=== PATIENT | male | born 1960 | race Two or more races ===

== ENCOUNTER 2016-05-01 18:43 | Emergency (ER) | payer MEDICAID, OTHER ==
[2016-05-01 19:05] VITALS: BP 133/81
--- NOTE | 2016-05-01 20:00 | EDM.PDOC ---
ED HISTORY OF PRESENT ILLNESS - General Chief Complaint: Respiratory Problem Stated Complaint: VOMITING COUGH CHILLS Time Seen by Provider: 05/01/16 19:35 Source of Information: Reports: Patient History Limitations: Reports: No limitations - History of Present Illness INITIAL COMMENTS - FREE TEXT/NARRATIVE: Patient is a 56-year-old male who presents to the ED complaining of generalized body aches, nonproductive cough, watery eyes, itchy eyes, body chills, tactile fevers, sinus congestion, cough-induced emesis, mild sore throat, poor appetite , general malaise, and intermittent mild headache. States symptoms started approximately 4 days ago and have just minimally changed. He states he's been pushing fluids since onset of symptoms. Has been sleeping more than usual. Denies any documented fever. Denies any chest pain, shortness of breath, nausea , stiff neck, pre-/syncopal episodes, dizziness, abdominal pain, pain with urination, persistent diarrhea, rash, or any additional complaints. Timing/Duration: Reports: Constant, Improving (minimal) Severity: mild Location, General: Reports: generalized Quality: Reports: Ache Improves with: Reports: None Worsens with: Reports: None Context, General: Denies: Sick contact Associated Symptoms (General): Reports: cough, fever/chills (No documented fever ), loss of appetite, malaise, nausea/vomiting (Cough induced vomiting). Denies : chest pain, cough w sputum, rash, shortness of breath, syncope, weakness Treatments DIE BAKER: Reports: Other (see below) (None stated) - Related Data Allergies/ADRs: Allergies Allergy/AdvReac Type Severity Reaction Status Date / Time No Known Allergies Allergy Verified 07/17/14 20:50 Home Meds: Home Meds Aspirin [Ecotrin] 81 mg PO DAILY 07/17/13 [History] Losartan [Cozaar] 50 mg PO DAILY 07/17/13 [History] Tamsulosin [Flomax] 0.4 mg PO DAILY 10/16/15 [History] Past Medical History HEENT History: Reports: Impaired vision Other HEENT History: Glasses Cardiovascular History: Reports: Hypertension Genitourinary History: Reports: BPH - Past Surgical History GI Surgical History: Reports: Appendectomy Musculoskeletal Surgical History: Reports: Arthroscopic knee, Carpal tunnel Social & Family History - Family History Family Medical History: Noncontributory - Tobacco Use Smoking Status *Q: Never Smoker Second Hand Smoke Exposure: No - Caffeine Use Caffeine Use: Reports: Coffee - Alcohol Use Days Per Week of Alcohol Use: 0 - Recreational Drug Use Recreational Drug Use: No - Living Situation & Occupation Living situation: Reports: , other (Friends) 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 Denies: shortness of breath, sputum Cardiovascular: Reports: No symptoms GI/Abdominal: Reports: Vomiting. Denies: Nausea Musculoskeletal: Reports: muscle stiffness (General) Skin: Reports: no symptoms Neurological: Reports: no symptoms ED EXAM, GENERAL - Physical Exam Exam: See Below Exam Limited By: No limitations General Appearance: alert, WD/WN, no apparent distress Eye Exam: bilateral eye: conjunctival injection, EOMI, PERRL Ears: normal external exam, normal canal, hearing grossly normal, normal TMs Nose: normal inspection, nasal swelling, nasal drainage, clear rhinorrhea. No: nasal tenderness Throat/Mouth: Normal inspection, Normal voice, No airway compromise, Other ( Faint redness to the posterior pharynx with postnasal drip present. No exudates noted) Head: atraumatic, normocephalic Neck: normal inspection, supple, non-tender, full range of motion. No: lymphadenopathy (L), lymphadenopathy (R) Respiratory/Chest: no respiratory distress, lungs clear, normal breath sounds, chest non-tender Cardiovascular: normal peripheral pulses, regular rate, rhythm Peripheral Pulses: 2+: radial (L) GI/Abdominal: normal bowel sounds, soft, non tender, no organomegaly, no distention Back Exam: normal inspection Extremities: normal inspection, normal range of motion, non-tender, normal capillary refill Neurological: alert, oriented, CN II-XII intact, normal cognition, no motor/ sensory deficits Psychiatric: normal affect, normal mood Skin Exam: Warm, Dry, Intact, Normal color, No rash Course - Vital Signs Last Recorded V/S: Last Vital Signs Temp 97.6 F 05/01/16 19:03 Pulse 82 05/01/16 19:03 Resp 20 05/01/16 19:03 BP 133/81 05/01/16 19:03 Pulse Ox 99 05/01/16 19:03 - Re-Assessments/Exams Free Text/Narrative Re-Assessment/Exam: Influenza screens were obtained and found to be negative. Etiology of symptoms are most likely viral requiring no additional testing. Patient agrees he would like to have days off from work until he gets better. Patient will be discharged home with instructions as documented. 05/02/16 00:41 Departure - Departure Time of Disposition: 20:00 Disposition: Home, Self-Care 01 Condition: good Clinical Impression: Viral upper respiratory tract infection with cough Instructions: Viral Respiratory Infection, [id number] Referrals: PCP,Not In Area [Primary Care Provider] - Rosanna Peguero PA [Physician Level Vial Inspector And Tester] - Forms: ED Department Discharge, Return to Work/School Form Additional Instructions: As discussed symptoms etiology most likely viral and will resolve over the next few days. Treatment is symptomatic including: tylenol and ibuprofen in alternating fashion for body aches and fever. Nasal saline spray 1-2 sprays to each nare as needed for sinus congestion. Humidifier in room while sleeping. Push the fluids. Ensure adequate rest. Advance diet as tolerated. Followup with PCP the end of next week if symptoms have not resolved. Return to the E.D. for any new or worsening symptoms.
== END 2016-05-01 20:14 | disposition home or self-care (01) ==
LOC: JD.ED 18:43
DX: J06.9 Acute upper respiratory infection, unspecified (principal); B97.89 Other viral agents as the cause of diseases classified elsewhere; I10 Essential (primary) hypertension; Z90.49 Acquired absence of other specified parts of digestive tract; Z98.890 Other specified postprocedural states; Z79.82 Long term (current) use of aspirin; Z79.899 Other long term (current) drug therapy
CPT/HCPCS: 87804; 99282; 99284

== ENCOUNTER 2016-06-28 13:29 | Emergency (ER) | payer MEDICAID ==
--- NOTE | 2016-06-28 14:58 | CT ---
Head CT Technique: Multiple axial sections through the brain were obtained. Intravenous contrast was not utilized. Comparison: Previous head CT exam of 07/17/13. Findings: Ventricles along with basal cisterns and sulci over the convexities are within normal limits for the patient's age. No abnormal parenchymal densities are seen. No evidence of intracranial hemorrhage. No midline shift or mass effect is seen. Bone window settings were reviewed which shows the visualized sinuses to appear clear. No acute calvarial abnormality is seen. Impression: 1. No acute intracranial abnormality is identified on noncontrast head CT study. Diagnostic code #1
--- NOTE | 2016-06-28 15:56 | EDM.PDOC ---
ED HPI HEADACHE COMPLAINT - General Chief Complaint: Headache Stated Complaint: HEAD PAIN ON R SIDE Time Seen by Provider: 06/28/16 14:03 Source of Information: Reports: Patient, RN notes reviewed - History of Present Illness INITIAL COMMENTS - FREE TEXT/NARRATIVE: 56 year old male with sharp shooting pains R face and R head for about 2 weeks. They last for just a second or 2. no pattern. No nausea or vomiting. No neck or back pain. No speech or vision problems. No focal weakness. Denies hx of headaches. This does not wake him up at night. - Related Data Allergies/ADRs: Allergies Allergy/AdvReac Type Severity Reaction Status Date / Time No Known Allergies Allergy Verified 06/28/16 14:02 Home Meds: Home Meds Aspirin [Ecotrin] 81 mg PO DAILY 07/17/13 [History] Losartan [Cozaar] 50 mg PO DAILY 07/17/13 [History] Tamsulosin [Flomax] 0.4 mg PO DAILY 10/16/15 [History] LORazepam [Ativan] 0.5 mg PO BID #10 tablet 06/28/16 [Rx] Past Medical History HEENT History: Reports: Impaired vision Other HEENT History: Glasses Cardiovascular History: Reports: Hypertension Genitourinary History: Reports: BPH - Past Surgical History GI Surgical History: Reports: Appendectomy Musculoskeletal Surgical History: Reports: Arthroscopic knee, Carpal tunnel Social & Family History - Family History Family Medical History: Noncontributory - Tobacco Use Smoking Status *Q: Never Smoker Second Hand Smoke Exposure: No - Caffeine Use Caffeine Use: Reports: Coffee - Alcohol Use Days Per Week of Alcohol Use: 0 - Recreational Drug Use Recreational Drug Use: No - Living Situation & Occupation Living situation: Reports: , other (Friends) 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 Denies: Dizziness, Numbness, Tingling, Trouble Speaking, Difficulty Walking, Weakness - Physical Exam Exam: See Below General Appearance: alert, no apparent distress Eye Exam: bilateral eye: PERRL Ears: normal external exam, normal canal, normal TMs Nose: normal inspection Throat/Mouth: Normal inspection, Normal oropharynx Head Exam: atraumatic. No: facial swelling Neck: supple, full range of motion. No: lymphadenopathy (L), lymphadenopathy (R ) Respiratory/Chest: no respiratory distress, lungs clear, normal breath sounds Cardiovascular: regular rate, rhythm GI/Abdominal: non tender Neuro Exam (Abbreviated): alert, oriented, no motor/sensory deficits, other ( finger to nose testing normal) Extremities: normal inspection, normal range of motion. No: pedal edema, leg pain Course - Vital Signs Last Recorded V/S: Last Vital Signs Temp 97.4 F 06/28/16 13:59 Pulse 79 06/28/16 16:00 Resp 18 06/28/16 16:00 BP 144/80 H 06/28/16 16:00 Pulse Ox 97 06/28/16 16:00 - Re-Assessments/Exams Free Text/Narrative Re-Assessment/Exam: 06/28/16 15:[address] is normal. He is off work for another week or 2. discharge instr. as documented. Departure - Departure Time of Disposition: 15:56 Disposition: Home, Self-Care 01 Condition: fair Clinical Impression: Headache Qualifiers: Headache type: unspecified Headache chronicity pattern: unspecified pattern Intractability: not intractable Qualified Code(s): R51 - Headache Prescriptions: LORazepam [Ativan] 0.5 mg PO BID #10 tablet Instructions: Tension Headache Referrals: PCP,Not In Area [Primary Care Provider] - Forms: ED Department Discharge Additional Instructions: ibuprofen 600 mg (three 200 mg tabs) 2 to 3 times daily with food, ativan, a muscle and nerve relaxant 0.5 mg twice daily for 5 days, do not drive when taking the ativan, especially if that is making you drowsy. Follow up clinic if symptoms not resolving as expected. Return to ED as needed.
[2016-06-28 16:14] VITALS: BP 144/80
== END 2016-06-28 16:00 | disposition home or self-care (01) ==
LOC: JD.ED 13:29
DX: R51 Headache (principal); I10 Essential (primary) hypertension; Z79.82 Long term (current) use of aspirin; Z79.899 Other long term (current) drug therapy; Z90.49 Acquired absence of other specified parts of digestive tract
CPT/HCPCS: 70450; 70450-26; 99283; 99284

== ENCOUNTER 2016-08-04 08:03 | Emergency (ER) | payer MEDICAID ==
[2016-08-04 08:16] VITALS: BP 115/65
[2016-08-04] MEDS ORDERED: Ondansetron 4 MG Tab.DIS PO ONE (08:39)
--- NOTE | 2016-08-04 09:03 | EDM.PDOC ---
ED HPI GENERAL MEDICAL PROBLEM - General Chief Complaint: Gastrointestinal Problem Stated Complaint: NOT FEELING WELL Time Seen by Provider: 08/04/16 08:28 Source of Information: Reports: Patient, RN Notes Reviewed - History of Present Illness INITIAL COMMENTS - FREE TEXT/NARRATIVE: 56-year-old male comes in with vomiting and diarrhea. This all started about 4 days ago. He continues to have nausea vomiting and diarrhea. He is drinking water okay. If he eats food that makes him more sick. He does get occasional abdominal cramps with this but no pain or cramping at this time. - Related Data Allergies Allergy/AdvReac Type Severity Reaction Status Date / Time No Known Allergies Allergy Verified 08/04/16 08:33 Home Meds: Home Meds Aspirin [Ecotrin] 81 mg PO DAILY 07/17/13 [History] Losartan [Cozaar] 50 mg PO DAILY 07/17/13 [History] Tamsulosin [Flomax] 0.4 mg PO DAILY 10/16/15 [History] Ciprofloxacin HCl [Cipro] 500 mg PO BID #10 tablet 08/04/16 [Rx] Ondansetron [Zofran ODT] 4 mg PO Q8H PRN #7 tab.dis 08/04/16 [Rx] Past Medical History HEENT History: Reports: Impaired Vision Other HEENT History: Glasses Cardiovascular History: Reports: Hypertension Genitourinary History: Reports: BPH - Past Surgical History GI Surgical History: Reports: Appendectomy Musculoskeletal Surgical History: Reports: Arthroscopic Knee, Carpal Tunnel Social & Family History - Family History Family Medical History: Noncontributory - Tobacco Use Smoking Status *Q: Never Smoker Second Hand Smoke Exposure: No - Caffeine Use Caffeine Use: Reports: Coffee - Alcohol Use Days Per Week of Alcohol Use: 0 - Recreational Drug Use Recreational Drug Use: No - Living Situation & Occupation Living situation: Reports: , Other Occupation: Employed ED ROS GENERAL - Review of Systems Review Of Systems: See Below Constitutional: Denies: Fever, Chills HEENT: Reports: No Symptoms Respiratory: Denies: Shortness of Breath Cardiovascular: Denies: Chest Pain GI/Abdominal: Reports: Abdominal Pain, Diarrhea (Occasional cramps artery), Nausea, Vomiting Skin: Reports: No Symptoms Neurological: Reports: No Symptoms ED EXAM, GI/ABD - Physical Exam Exam: See Below General Appearance: Alert, No Apparent Distress Throat/Mouth: Normal Inspection, Normal Oropharynx, Other (Oral mucosa is moist) Head: No: Facial Swelling Neck: Supple Respiratory/Chest: No Respiratory Distress, Lungs Clear Cardiovascular: Regular Rate, Rhythm GI/Abdominal: Soft, Non-Tender. No: Guarding Extremities: Normal Inspection Neurological: Alert, No Motor/Sensory Deficits Skin Exam: Warm, Dry, Normal Color Course - Vital Signs Last Recorded V/S: Last Vital Signs Temp 96.9 F 08/04/16 08:12 Pulse 97 08/04/16 08:12 Resp 16 08/04/16 08:12 BP 115/65 08/04/16 08:12 Pulse Ox 97 08/04/16 08:12 - Orders/Labs/Meds Meds: Medications Discontinued Medications Generic Name Dose Route Start Last Admin Trade Name Freq PRN Reason Stop Dose Admin Ondansetron HCl 4 mg 08/04/16 08:39 08/04/16 08:55 Zofran Odt PO 08/04/16 08:40 4 mg ONETIME ONE Administration - Re-Assessments/Exams Free Text/Narrative Re-Assessment/Exam: 08/04/16 09:26 Patient is not dehydrated at this time, with his continued symptomatology of 4 days this likely is a food related illness, start him on Cipro 500 mg twice a day for 5 days, discharge instructions as documented Departure - Departure Time of Disposition: 09:01 Disposition: Home, Self-Care 01 Condition: fair Clinical Impression: Vomiting, Diarrhea - Discharge Information Prescriptions: Ciprofloxacin HCl [Cipro] 500 mg PO BID #10 tablet Ondansetron [Zofran ODT] 4 mg PO Q8H PRN #7 tab.dis PRN Reason: Nausea/Vomiting Instructions: Diarrhea, Adult Referrals: PCP,None [Primary Care Provider] - Forms: ED Department Discharge Additional Instructions: Clear liquids such as chicken or soup broth, Jell-O, Powerade or Gatorade today , or until symptoms of vomiting and diarrhea getting better, Cipro antibiotic 500 mg twice daily for 5 days, Zofran 4 mg under the tongue every 8 hours if needed for further nausea or vomiting, followup clinic if not back to normal within 2-3 days as expected, return to ED if symptoms worsening in any way
== END 2016-08-04 09:17 | disposition home or self-care (01) ==
LOC: JD.ED 08:03
DX: R19.7 Diarrhea, unspecified (principal); R11.10 Vomiting, unspecified; Z79.82 Long term (current) use of aspirin; Z79.899 Other long term (current) drug therapy; I10 Essential (primary) hypertension; Z90.49 Acquired absence of other specified parts of digestive tract; Z98.890 Other specified postprocedural states
CPT/HCPCS: 99284; A9270; 99283

== ENCOUNTER 2016-08-08 17:31 | Emergency (ER) | payer MEDICAID ==
[2016-08-08 17:40] VITALS: BP 122/69
--- NOTE | 2016-08-08 18:19 | EDM.PDOC ---
ED HPI GENERAL MEDICAL PROBLEM - General Chief Complaint: Eye Problems Stated Complaint: LEFT EYE ISSUES Time Seen by Provider: 08/08/16 18:19 Source of Information: Reports: Patient History Limitations: Reports: No Limitations - History of Present Illness INITIAL COMMENTS - FREE TEXT/NARRATIVE: 56-year-old male presents to the ED with somewhat painful and distorted visual acuity in his left eye for the last few days. Of note the patient has chronic tics in his face and from the son the found things he has tic douloureux sounds like he sees a neurologist in [place] for intermittent Botox shots and he did so last week having had several shots in his left galindo-face. 3 of them were apparently done periocular late I suspect the supraorbital nerve the infraorbital nerve and lateral aspect of the eyelid were given small doses of Botox. At present he has inability to close his left eye completely he feels he intermittent prickly sensation in his left eye. The eye is quite red and the periocular tissues are very tender to touch. He also appreciates excessive tearing from the left eye. His visual acuity changes are that of intermittent blurred vision but again intermittently. Onset: Gradual (Problems have developed over the last 3 days.) Onset Date: 08/05/16 Duration: Day(s):, Getting Worse Location: Reports: Other (Left eye changes.) Quality: Reports: Burning, Other (Sharp prickly sensation to the eye. Excessive tearing. Intermittent blurred or double vision.) Severity: Moderate Improves with: Reports: None Worsens with: Reports: Other (Eyes very sensitive to sunlight.) Context: Reports: Other (Is in Botox shots periocular early by a neurologist in [place] last week). 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.) Left Eye Pain Score (Numeric/FACES): 5 - Related Data Allergies Allergy/AdvReac Type Severity Reaction Status Date / Time No Known Allergies Allergy Verified 08/08/16 17:40 Home Meds: Home Meds Aspirin [Ecotrin] 81 mg PO DAILY 07/17/13 [History] Losartan [Cozaar] 50 mg PO DAILY 07/17/13 [History] Tamsulosin [Flomax] 0.4 mg PO DAILY 10/16/15 [History] Past Medical History HEENT History: Reports: Impaired Vision Other HEENT History: Glasses Cardiovascular History: Reports: Hypertension Genitourinary History: Reports: BPH Neurological History: Reports: Other (See Below) (Tic douloureux.) - Past Surgical History GI Surgical History: Reports: Appendectomy Musculoskeletal Surgical History: Reports: Arthroscopic Knee, Carpal Tunnel Social & Family History - Family History Family Medical History: Noncontributory - Tobacco Use Smoking Status *Q: Never Smoker Second Hand Smoke Exposure: No - Caffeine Use Caffeine Use: Reports: None - Alcohol Use Days Per Week of Alcohol Use: 0 - Recreational Drug Use Recreational Drug Use: No - Living Situation & Occupation Living situation: Reports: , Other Occupation: Employed ED ROS GENERAL - Review of Systems Review Of Systems: See Below Constitutional: Denies: Fever, Malaise, Fatigue, Decreased Appetite, Weight Loss HEENT: Reports: Eye Discharge, Eye Pain (Mostly excessive tears.), Glasses. Denies: Contact Lenses, Dental Pain, Ear Discharge, Ear Pain, Hearing Loss, Nosebleed, Throat Swelling Respiratory: Reports: No Symptoms Cardiovascular: Reports: No Symptoms Endocrine: Reports: No Symptoms GI/Abdominal: Reports: No Symptoms : Reports: No Symptoms Musculoskeletal: Reports: No Symptoms Skin: Reports: No Symptoms Neurological: Reports: Other (Chronic facial tic douloureux.) Psychiatric: Reports: No Symptoms ED EXAM GENERAL W FULL EYE - Physical Exam Exam: See Below Exam Limited By: Language Barrier (Slight language barrier.) General Appearance: Other (Left eye is excessively tearing. It is also more injected on the conjunctiva than the right.) Eye Exam: Left Eye: Normal Fundi, Periorbital Changes (He does have weakness of the upper eyelid he is unable to completely close the eye I ptosis.), Vision Changes (I believe he is experiencing intermittent malfunction of the third cranial nerve post Botox injection causing some diplopia or double vision at times.), Bilateral Eye: Abnormal EOM (I could not identify any obvious abnormalities on extraocular movement today.), Conjunctival Injection ( Bilaterally but worse on the right as compared to the left.), PERRL Eyelids: Left: Normal Appearance (As ptosis of the left upper eyelid. The eyelid itself is very tender to touch as is the lower eyelid. It's like they're badly bruised.) Conjunctiva & Sclera: Bilateral: Injected (Left greater than the right.) Cornea Exam: Left: Normal Appearance (On slit-lamp exam.) Extraocular Movements: Bilateral: Intact Pupils: Normal Accommodation Pupillary Reaction: Bilateral: Brisk Anterior Chamber: Left: Normal Appearance Posterior Chamber: Left: Normal Funduscopic Course - Vital Signs Last Recorded V/S: Last Vital Signs Temp 36.6 C 08/08/16 17:38 Pulse 76 08/08/16 17:38 Resp 16 08/08/16 17:38 BP 122/69 08/08/16 17:38 Pulse Ox 95 08/08/16 17:38 - Orders/Labs/Meds Meds: Medications Discontinued Medications Generic Name Dose Route Start Last Admin Trade Name Zane PRN Reason Stop Dose Admin Ketorolac Tromethamine 2.5 ml 08/08/16 18:56 Acular 0.5% Ophth Soln EYELF 08/08/16 18:57 ONETIME ONE - Radiology Interpretation Free Text/Narrative:: 48-year-old male presents the ED for evaluation of changes in his visual acuity excessive tearing and sharp stabbing pains in his left eye since he had Botox injections done to his left galindo-face and right face last week by his neurologist in [place]. These shots are Botox shots been given for many years for tic douloureux primarily affecting the left side of his face. They held it helped immensely with the facial spasms and lancinating pains. On examination it is evident that he is unable to close his left eye completely but its about 10% to 15% weaker than the right. He lower conjunctiva is injected more so on the left and is on the right. The cornea itself appears clear and anterior chamber posterior chambers appear normal on slit-lamp and ophthalmoscopy. I suspect his intermittent blurred vision is expenses of tears and also due to partial intermittent recesses of third cranial nerve which is causing the ptosis and rightly disturbed visual acuity. I gave him Toradol drops 2 drops to the left eye every 6 hours as needed to relieve pain and inflammation as it seems to be good component of his discomfort. However I strongly advise him to followup with ophthalmology overall not sure that anything further can be done as there is no reversal agent for the Botox. He simply going to have to wear off. The question is whether or not he is going to need to wear a patch overnight to keep the left eye as well he is sleeping. I've advised him to call Dr. Huitron's office tomorrow to tentatively set up an appointment either here or in [place] within the next few days. Departure - Departure Time of Disposition: 18:57 Disposition: Home, Self-Care 01 Condition: fair Clinical Impression: Adverse effects of medication Qualifiers: Encounter type: initial encounter Qualified Code(s): T88.7XXA - Unspecified adverse effect of drug or medicament, initial encounter - Discharge Information Instructions: Drug Allergy, [id number] Referrals: PCP,Not In Area [Primary Care Provider] - Forms: ED Department Discharge Additional Instructions: Evaluation in the emergency him today in regards to persistent pain and visual acuity changes and inability to completely close her left eye since having Botox injections to the left galindo-face carried out last week by your neurologist in [place]. 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 I believe also this is intermittently disturbing your visual tan as you would see double intermittently. Also with a paralyzed the ability of the lower eyelid to collect the tears normally and the eyes excessively tearing. There were no signs of glaucoma or increased intraocular pressure in the cornea itself is normal on slit-lamp exam.. pain did improve transiently with topical anesthetic. The upper and lower eyelids are both very tender to touch I suspect from being bruised from the injections. At this time I would just suggest core sunglasses all the time as the eye will be extremely sensitive to sun. The question is whether or not the eye closes appropriately during sleep or remains partially open which would cause dryness of the cornea. It might be worthwhile to purchase an eye pad and tape over her eye overnight to make sure that it stays closed will you're sleeping. Suggest use of ketorolac eyedrops 2 drops to the left eye every 6 hours as needed to relieve pain and inflammation. The hope is that the Botox shots partial paralysis wears off and the next 7-10 days and your ocular muscles return to normal function. However I don't believe anybody has an answer as to how long this might take. I would suggest followup with an online banking specialist such as Dr. Bradley or Dr. Huitron. Please call the [facility] tomorrow at [phone] up an appointment to see Dr. Huitron. He often comes to [place] once a week for cataract surgery and possibly he could see you at that time versus you've driving to [place] to see him.
[2016-08-08] MEDS ORDERED: Ketorolac 0.5% Ophth Soln 5 ML Bottle EYELF ONE (18:56)
== END 2016-08-08 19:15 | disposition home or self-care (01) ==
LOC: JD.ED 17:31
DX: H53.8 Other visual disturbances (principal); T48.295A Adverse effect of other drugs acting on muscles, initial encounter; I10 Essential (primary) hypertension; Z79.82 Long term (current) use of aspirin; Z79.899 Other long term (current) drug therapy; Z90.49 Acquired absence of other specified parts of digestive tract; Z98.890 Other specified postprocedural states
CPT/HCPCS: 99283; A9270

== ENCOUNTER 2016-08-19 17:17 | Emergency (ER) | payer MEDICAID ==
[2016-08-19 17:37] VITALS: BP 129/80
[2016-08-19] MEDS ORDERED: Proparacaine 0.5% Ophth Soln 15 ML Bottle EYEBOTH STA (18:38)
[2016-08-19] MEDS ORDERED: Sodium Chloride 0.9% 10 ML Syringe FLUSH PRN (18:58)
[2016-08-19] MEDS ORDERED: Iopamidol 612 MG/ML 100 ML Bottle IVPUSH ONE (18:58)
--- NOTE | 2016-08-19 19:58 | CT ---
CT maxillofacial Technique: Multiple axial sections were obtained from above the frontal sinuses through the mandible. Intravenous contrast was utilized. Findings: Right and left globes are symmetric. Extraocular muscles and optic nerves are symmetric. Mild mucosal thickening is seen within the right maxillary sinus as well as minimal mucosal thickening within the frontal sinuses and ethmoid sinuses. Minimal mucosal thickening seen within left maxillary sinus. No air-fluid levels are seen within the paranasal sinuses. No bony abnormality is identified. Submandibular and parotid salivary glands appear within normal limits. No adenopathy or mass is seen. No inflammatory change or soft tissue fluid is seen. Impression: 1. Scattered areas of mild mucosal thickening within the paranasal sinuses which are felt to be incidental. No air-fluid level are seen within the sinuses. 2. No additional abnormality is appreciated on CT study of the maxillofacial region. Diagnostic code #2
--- NOTE | 2016-08-19 20:26 | EDM.PDOC ---
ED HPI GENERAL MEDICAL PROBLEM - General Chief Complaint: Eye Problems Stated Complaint: EYE SWOLLEN Time Seen by Provider: 08/19/16 18:05 Source of Information: Reports: Patient, Old Records (recent ER visit) History Limitations: Reports: Language Barrier (patient speaks some icelandic but has difficulty) - History of Present Illness INITIAL COMMENTS - FREE TEXT/NARRATIVE: 56-year-old male presents for evaluation and treatment of left eye irritation and blurry vision. Patient states this has been going on for the last 16 days. He was seen in our ER on 08-08-16 for the same problem. He is referred to an environmental compliance officer. Patient states he has seen ophthalmology but continues to have blurry vision, increased tearing and irritation to both eyes with the left eye being the worst. The environmental compliance officer suggested that he had inflammation in his extraocular muscles. The original injury occurred after receiving Botox. Patient reports that he gets Botox for tic douloureux. Patient reports that he was seen by his neurologist in [place] August 03. This is when he had the Botox injections. States that it was not his normal provider and he had several injections at areas he thought were abnormal. Current symptoms include bilateral eye discomfort with the left being the worse than the right. He also complains of headaches, pain with extraoccular movements, increased tearing and blurry, hazy vision. Patient wears glasses for driving and reading. He was previously on eyedrops from the environmental compliance officer but is no longer on these. Denies any erythema , fevers, nausea, vomiting or double vision. Left Eye Pain Score (Numeric/FACES): 5 - Related Data Allergies Allergy/AdvReac Type Severity Reaction Status Date / Time No Known Allergies Allergy Verified 08/08/16 17:40 Home Meds: Home Meds Aspirin [Ecotrin] 81 mg PO DAILY 07/17/13 [History] Losartan [Cozaar] 50 mg PO DAILY 07/17/13 [History] Tamsulosin [Flomax] 0.4 mg PO DAILY 10/16/15 [History] Erythromycin Base [Erythromycin 0.5% Ophth Oint] 3.5 gm EYEBOTH TID #1 tube [Rx] Tetrahydrz/Dext 70/Peg 400/Pvp [Eye Drops] 0 drop TOP DAILY 08/19/16 [History] Past Medical History HEENT History: Reports: Impaired Vision Other HEENT History: Glasses Cardiovascular History: Reports: Hypertension Genitourinary History: Reports: BPH Neurological History: Reports: Other (See Below) - Past Surgical History GI Surgical History: Reports: Appendectomy Musculoskeletal Surgical History: Reports: Arthroscopic Knee, Carpal Tunnel Social & Family History - Family History Family Medical History: Noncontributory - Tobacco Use Smoking Status *Q: Never Smoker Second Hand Smoke Exposure: No - Caffeine Use Caffeine Use: Reports: Coffee - Alcohol Use Days Per Week of Alcohol Use: 0 - Recreational Drug Use Recreational Drug Use: No - Living Situation & Occupation Living situation: Reports: , Other Occupation: Employed ED ROS GENERAL - Review of Systems Review Of Systems: See Below Constitutional: Denies: Fever HEENT: Reports: Eye Pain (bilateral, left > right; reports irritation and ichiness), Glasses (for reading and driving), Vision Change (blurry, hazzy vision), Other (pain with extraocculr movements) GI/Abdominal: Denies: Nausea, Vomiting Neurological: Reports: Headache ED EXAM GENERAL W FULL EYE - Physical Exam Exam: See Below Exam Limited By: No Limitations General Appearance: Alert, WD/WN, No Apparent Distress Eye Exam: Bilateral Eye: EOMI (reports pain with EOM) Visual Acuity (R) 20/: 40 (pinhole) Visual Acuity (L) 20/: 50 (pinhole) With Correction: No Eyelids: Right: Other (drooping upper lid), Bilateral: Normal Appearance Conjunctiva & Sclera: Bilateral: Normal Appearance Cornea Exam: Bilateral: Normal Appearance, Examined with Flourescein Extraocular Movements: Bilateral: Intact Pupillary Reaction: Bilateral: Brisk Anterior Chamber: Bilateral: Normal Appearance Respiratory/Chest: No Respiratory Distress, Lungs Clear, Normal Breath Sounds Cardiovascular: Normal Peripheral Pulses, Regular Rate, Rhythm, No Murmur Neurological: Alert, Oriented, Normal Cognition Psychiatric: Normal Affect, Normal Mood Skin Exam: Warm, Dry, Normal Color Course - Vital Signs Last Recorded V/S: Last Vital Signs Temp 36.8 C 08/19/16 17:35 Pulse 79 08/19/16 17:35 Resp 20 08/19/16 17:35 BP 129/80 08/19/16 17:35 Pulse Ox 97 08/19/16 17:35 - Orders/Labs/Meds Labs: Laboratory Tests 08/19/16 08/19/16 Range/Units 18:40 18:40 WBC 8.24 (4.23-9.07) K/mm3 RBC 4.77 (4.63-6.08) M/mm3 Hgb 13.8 (13.7-17.5) gm/L Hct 41.2 (40.1-51.0) % MCV 86.4 (79.0-92.2) fl MCH 28.9 (25.7-32.2) pg MCHC 33.5 (32.2-35.5) g/dl RDW Std Deviation 46.1 H (35.1-43.9) fL Plt Count 280 (163-337) K/mm3 MPV 10.6 (9.4-12.3) fl Neut % (Auto) 53.8 (34.0-67.9) % Lymph % (Auto) 33.7 (21.8-53.1) % [place] % (Auto) 10.4 (5.3-12.2) % Eos % (Auto) 1.8 (0.8-7.0) Baso % (Auto) 0.1 (0.1-1.2) % Neut # (Auto) 4.42 (1.78-5.38) K/mm3 Lymph # (Auto) 2.78 (1.32-3.57) K/mm3 [place] # (Auto) 0.86 H (0.30-0.82) K/mm3 Eos # (Auto) 0.15 (0.04-0.54) K/mm3 Baso # (Auto) 0.01 (0.01-0.08) K/mm3 Sodium 142 (136-145) mEq/L Potassium 3.7 (3.5-5.1) mEq/L Chloride 106 (98-107) mEq/L Carbon Dioxide 27 (21-32) mEq/L Anion Gap 12.7 (5-15) BUN 14 (7-18) mg/dL Creatinine 1.1 (0.7-1.3) mg/dL Est Cr Clr Drug Dosing 66.06 mL/min Estimated GFR (MDRD) > 60 (>60) mL/min BUN/Creatinine Ratio 12.7 L (14-18) Glucose 97 (74-106) mg/dL Calcium 8.8 (8.5-10.1) mg/dL Total Bilirubin 0.4 (0.2-1.0) mg/dL AST 16 (15-37) U/L ALT 26 (16-63) U/L Alkaline Phosphatase 96 (46-116) U/L C-Reactive Protein 0.4 (<1.0) mg/dL Total Protein 7.7 (6.4-8.2) g/dl Albumin 3.7 (3.4-5.0) g/dl Globulin 4.0 gm/dL Albumin/Globulin Ratio 0.9 L (1-2) Meds: Medications Discontinued Medications Generic Name Dose Route Start Last Admin Trade Name Freq PRN Reason Stop Dose Admin Iopamidol 80 ml 08/19/16 18:58 08/19/16 19:24 Isovue-300 (61%) IVPUSH 08/19/16 18:59 80 ml ONETIME ONE Administration Proparacaine HCl 2 ml 08/19/16 18:38 08/19/16 18:40 Proparacaine 0.5% Ophth Soln EYEBOTH 08/19/16 18:39 2 drop NOW STA Administration Sodium Chloride 10 ml 08/19/16 18:58 08/19/16 19:25 Saline Flush FLUSH 10 ml ONETIME PRN Administration IV FLUSH - Radiology Interpretation Free Text/Narrative:: CT of the maxillofacial with contrast impression per Dr. Lau 1. Scattered areas of mild coastal thickening within the paranasal sinuses which are felt to be incidental. No air-fluid level are seen within the sinuses. 2. No additional abnormalities appreciated on CT study of the maxillofacial region. - Re-Assessments/Exams Free Text/Narrative Re-Assessment/Exam: 08/19/16 20:15 While the patient's physical exam was not consistent with a orbital cellulitis my concerns were his pain with extraocular movement, headaches and the fact that he recently had Botox injections around the eye. I therefore decided to obtain a CT and labs to rule out infection. Labs include the following. white blood cell count 8.24, hemoglobin 13 point implants to 80. CRP 0.4. Sodium 142, potassium 3.7, chloride 106, anion gap 12.7 and glucose 97. I reviewed the labs and CT results with the patient. I feel that his environmental compliance officer is correct and that he likely has inflammation around the extraocular muscles, likely from Botox, causing the problems. I educated him that he should follow-up with his environmental compliance officer as planned. He has a follow- up appointment in one month. I also encouraged him to give this more time. It may resolve in a few a few days or may take months. It is difficult to say with Botox. Discharge instructions as documented. Departure - Departure Time of Disposition: 20:22 Disposition: Home, Self-Care 01 Condition: Fair Clinical Impression: Adverse effects of medication, Conjunctivitis - Discharge Information Prescriptions: Erythromycin Base [Erythromycin 0.5% Ophth Oint] 3.5 gm EYEBOTH TID #1 tube Instructions: Bacterial Conjunctivitis Referrals: PCP,None [Primary Care Provider] - Forms: ED Department Discharge Additional Instructions: erythromycin 1 cm ribbon to the lower lids tid x 10 days. OTC tylenol or motrin as needed for additional pain and symptom relief. Follow-up with your eye doctor as planned. Please return to the ER should your symptoms change or worsen.
== END 2016-08-19 20:50 | disposition home or self-care (01) ==
LOC: SUPCPDRO 17:17 → JD.ED 17:17
DX: H10.9 Unspecified conjunctivitis (principal); T50.905A Adverse effect of unspecified drugs, medicaments and biological substances, initial encounter; I10 Essential (primary) hypertension; Z79.82 Long term (current) use of aspirin; Z79.899 Other long term (current) drug therapy; Z98.890 Other specified postprocedural states
CPT/HCPCS: 36415; 70487; 80053; 85025; 86140; 99284; J7050; Q9967

== ENCOUNTER 2016-10-26 13:18 | Emergency (ER) | payer MEDICAID ==
[2016-10-26 13:39] VITALS: BP 120/83
--- NOTE | 2016-10-26 14:16 | EDM.PDOC ---
ED HPI GENERAL MEDICAL PROBLEM - General Chief Complaint: Genitourinary Problem Stated Complaint: ABDOMINAL AND BACK PAIN Time Seen by Provider: 10/26/16 14:08 Source of Information: Reports: Patient History Limitations: Reports: No Limitations - History of Present Illness INITIAL COMMENTS - FREE TEXT/NARRATIVE: Patient is a 56-year-old male who presents to the ED complaining of suprapubic abdominal pain and low back discomfort. He has a history of BPH and notes as of recent he's been experiencing urinating more frequently, incomplete emptying, weak stream, with mild pain. He is concerned this is related to his prostate. He has history of prostatitis as well and received antibiotic therapy this past March. He was evaluated by a urologist at [facility] in March with no concerning findings. He is on Flomax and also Proscar to which she's been taking religiously. He is not sexually active. Denies any abnormal penile discharge, pain to his testicles, fever/chills, nausea/vomiting, diarrhea, history kidney stones, or any additional complaints. Symptoms he is currently experiencing are similar to previous prostatitis issues. Lower Abdomen Pain Score (Numeric/FACES): 4 - Related Data Allergies Allergy/AdvReac Type Severity Reaction Status Date / Time No Known Allergies Allergy Verified 10/26/16 13:39 Home Meds: Home Meds Aspirin [Ecotrin] 81 mg PO DAILY 07/17/13 [History] Losartan [Cozaar] 50 mg PO DAILY 07/17/13 [History] Tamsulosin [Flomax] 0.4 mg PO DAILY 10/16/15 [History] Finasteride [Proscar] 5 mg PO DAILY 10/26/16 [History] Past Medical History HEENT History: Reports: Impaired Vision Other HEENT History: Glasses Cardiovascular History: Reports: Hypertension Genitourinary History: Reports: BPH Neurological History: Reports: Other (See Below) - Past Surgical History GI Surgical History: Reports: Appendectomy Musculoskeletal Surgical History: Reports: Arthroscopic Knee, Carpal Tunnel Social & Family History - Family History Family Medical History: Noncontributory - Tobacco Use Smoking Status *Q: Never Smoker Second Hand Smoke Exposure: No - Caffeine Use Caffeine Use: Reports: None - Alcohol Use Days Per Week of Alcohol Use: 0 - Recreational Drug Use Recreational Drug Use: No - Living Situation & Occupation Living situation: Reports: , Other Occupation: Employed ED ROS GENERAL - Review of Systems Review Of Systems: ROS reveals no pertinent complaints other than HPI. ED EXAM, GI/ABD - Physical Exam Exam: See Below Exam Limited By: No Limitations General Appearance: Alert, WD/WN, No Apparent Distress Ears: Hearing Grossly Normal Nose: Normal Inspection Throat/Mouth: Normal Voice, No Airway Compromise Neck: Normal Inspection, Supple Respiratory/Chest: No Respiratory Distress, Lungs Clear, Normal Breath Sounds, No Accessory Muscle Use Cardiovascular: Normal Peripheral Pulses, Regular Rate, Rhythm GI/Abdominal Exam: Normal Bowel Sounds, Soft, No Organomegaly, No Distention, Tender (Suprapubic region) Rectal (Males) Exam: Normal Rectal Tone, BPH, Other (Enlarged prostate present.) . No: Fecal Impaction, Hemorrhoids, Mass, Perirectal Abscess, Prostate Nodule, Tenderness (Prostate) Back Exam: Normal Inspection Neurological: Alert, Oriented, CN II-XII Intact, Normal Cognition, No Motor/ Sensory Deficits Psychiatric: Normal Affect, Normal Mood Skin Exam: Warm, Dry, Intact, Normal Color Course - Vital Signs Last Recorded V/S: Last Vital Signs Temp 97.5 F 10/26/16 13:36 Pulse 77 10/26/16 13:36 Resp 16 10/26/16 13:36 BP 120/83 10/26/16 13:36 Pulse Ox 91 L 10/26/16 13:36 - Orders/Labs/Meds Labs: Laboratory Tests 10/26/16 10/26/16 10/26/16 Range/Units 14:15 14:30 14:30 WBC 8.10 (4.23-9.07) K/mm3 RBC 4.77 (4.63-6.08) M/mm3 Hgb 13.9 (13.7-17.5) gm/L Hct 40.6 (40.1-51.0) % MCV 85.1 (79.0-92.2) fl MCH 29.1 (25.7-32.2) pg MCHC 34.2 (32.2-35.5) g/dl RDW Std Deviation 44.6 H (35.1-43.9) fL Plt Count 260 (163-337) K/mm3 MPV 10.7 (9.4-12.3) fl Neut % (Auto) 57.5 (34.0-67.9) % Lymph % (Auto) 30.4 (21.8-53.1) % Mason % (Auto) 9.1 (5.3-12.2) % Eos % (Auto) 2.7 (0.8-7.0) Baso % (Auto) 0.2 (0.1-1.2) % Neut # (Auto) 4.65 (1.78-5.38) K/mm3 Lymph # (Auto) 2.46 (1.32-3.57) K/mm3 Mason # (Auto) 0.74 (0.30-0.82) K/mm3 Eos # (Auto) 0.22 (0.04-0.54) K/mm3 Baso # (Auto) 0.02 (0.01-0.08) K/mm3 Sodium (136-145) mEq/L Potassium (3.5-5.1) mEq/L Chloride (98-107) mEq/L Carbon Dioxide (21-32) mEq/L Anion Gap (5-15) BUN (7-18) mg/dL Creatinine (0.7-1.3) mg/dL Est Cr Clr Drug Dosing Estimated GFR (MDRD) (>60) mL/min BUN/Creatinine Ratio (14-18) Glucose (74-106) mg/dL Calcium (8.5-10.1) mg/dL Total Bilirubin (0.2-1.0) mg/dL AST (15-37) U/L ALT (16-63) U/L Alkaline Phosphatase (46-116) U/L C-Reactive Protein (<1.0) mg/dL Total Protein (6.4-8.2) g/dl Albumin (3.4-5.0) g/dl Globulin gm/dL Albumin/Globulin Ratio (1-2) PSA Screen 6.7 H (0.0-4.0) ng/mL Urine Color Light yellow (Yellow) Urine Appearance Clear (Clear) Urine pH 7.0 (5.0-8.0) Ur Specific [place] 1.015 (1.005-1.030) Urine Protein Negative (Negative) Urine Glucose (UA) Negative (Negative) Urine Ketones Negative (Negative) Urine Occult Blood Negative (Negative) Urine Nitrite Negative (Negative) Urine Bilirubin Negative (Negative) Urine Urobilinogen 0.2 (0.2-1.0) Ur Leukocyte Esterase Negative (Negative) Urine RBC Not seen (0-5) /hpf Urine WBC 0-5 (0-5) /hpf Ur Epithelial Cells 0-5 (0-5) /hpf Urine Bacteria Not seen (FEW) /hpf Urine Mucus Not seen (FEW) /hpf 10/26/16 Range/Units 14:30 WBC (4.23-9.07) K/mm3 RBC (4.63-6.08) M/mm3 Hgb (13.7-17.5) gm/L Hct (40.1-51.0) % MCV (79.0-92.2) fl MCH (25.7-32.2) pg MCHC (32.2-35.5) g/dl RDW Std Deviation (35.1-43.9) fL Plt Count (163-337) K/mm3 MPV (9.4-12.3) fl Neut % (Auto) (34.0-67.9) % Lymph % (Auto) (21.8-53.1) % Mason % (Auto) (5.3-12.2) % Eos % (Auto) (0.8-7.0) Baso % (Auto) (0.1-1.2) % Neut # (Auto) (1.78-5.38) K/mm3 Lymph # (Auto) (1.32-3.57) K/mm3 Mason # (Auto) (0.30-0.82) K/mm3 Eos # (Auto) (0.04-0.54) K/mm3 Baso # (Auto) (0.01-0.08) K/mm3 Sodium 140 (136-145) mEq/L Potassium 3.6 (3.5-5.1) mEq/L Chloride 104 (98-107) mEq/L Carbon Dioxide 28 (21-32) mEq/L Anion Gap 11.6 (5-15) BUN 16 (7-18) mg/dL Creatinine 1.2 (0.7-1.3) mg/dL Est Cr Clr Drug Dosing TNP Estimated GFR (MDRD) > 60 (>60) mL/min BUN/Creatinine Ratio 13.3 L (14-18) Glucose 97 (74-106) mg/dL Calcium 8.9 (8.5-10.1) mg/dL Total Bilirubin 0.4 (0.2-1.0) mg/dL AST 20 (15-37) U/L ALT 24 (16-63) U/L Alkaline Phosphatase 93 (46-116) U/L C-Reactive Protein 1.2 H* (<1.0) mg/dL Total Protein 7.5 (6.4-8.2) g/dl Albumin 3.8 (3.4-5.0) g/dl Globulin 3.7 gm/dL Albumin/Globulin Ratio 1.0 (1-2) PSA Screen (0.0-4.0) ng/mL Urine Color (Yellow) Urine Appearance (Clear) Urine pH (5.0-8.0) Ur Specific [place] (1.005-1.030) Urine Protein (Negative) Urine Glucose (UA) (Negative) Urine Ketones (Negative) Urine Occult Blood (Negative) Urine Nitrite (Negative) Urine Bilirubin (Negative) Urine Urobilinogen (0.2-1.0) Ur Leukocyte Esterase (Negative) Urine RBC (0-5) /hpf Urine WBC (0-5) /hpf Ur Epithelial Cells (0-5) /hpf Urine Bacteria (FEW) /hpf Urine Mucus (FEW) /hpf - Re-Assessments/Exams Free Text/Narrative Re-Assessment/Exam: Ordered bladder scan, UA, CBC, chem 14, CRP, and PSA. Bladder scan post urination 380 mls. Patient has no pain. Labs reviewed: CBC and chem 14 essentially normal. CRP is 1.2. PSA 6.7. UA negative for infection. PSA is quite elevated. On examination patient had no pain to his prostate. It is enlarged. With residual urine present offered in placing a Ramey catheter with leg bag to which the patient refuses. He will see his urologist within the next week. Will discharge patient home with instructions as documented. Departure - Departure Time of Disposition: 16:31 Disposition: Home, Self-Care 01 Condition: Good Clinical Impression: Elevated PSA, Urine retention BPH (benign prostatic hyperplasia) Qualifiers: Lower urinary tract symptom presence: symptoms present Lower urinary tract symptom detail: urinary frequency Qualified Code(s): N40.1 - Benign prostatic hyperplasia with lower urinary tract symptoms - Discharge Information Instructions: Benign Prostatic Hyperplasia Referrals: PCP,Not In Area [Primary Care Provider] - Forms: ED Department Discharge Additional Instructions: See your Urologists within the next week. Return to the E.D. for any new or worsening symptoms.
== END 2016-10-26 16:45 | disposition home or self-care (01) ==
LOC: JD.ED 13:18
DX: N40.1 Benign prostatic hyperplasia with lower urinary tract symptoms (principal); R33.9 Retention of urine, unspecified; I10 Essential (primary) hypertension; Z90.49 Acquired absence of other specified parts of digestive tract; Z98.890 Other specified postprocedural states; Z79.82 Long term (current) use of aspirin; Z79.899 Other long term (current) drug therapy
CPT/HCPCS: 36415; 51798; 80053; 81001; 85025; 86140; 99284; G0103; 99283

== ENCOUNTER 2016-12-21 15:17 | Emergency (ER) | payer MEDICAID ==
[2016-12-21 15:33] VITALS: BP 106/76
[2016-12-21] MEDS ORDERED: Fluconazole 150 MG Tab PO ONE (16:00)
--- NOTE | 2016-12-21 16:07 | EDM.PDOC ---
ED HPI GENERAL MEDICAL PROBLEM - General Chief Complaint: General Stated Complaint: INFECTION IN FEET Time Seen by Provider: 12/21/16 15:35 Source of Information: Reports: Patient History Limitations: Reports: No Limitations - History of Present Illness INITIAL COMMENTS - FREE TEXT/NARRATIVE: The patient presents with a few complaints. The first complaint is itching to both great toes. This has been going on for a few weeks. He had tried some hydrocortisone but it is not helping. The area behind the nail on both great toes is red and itches at times. He also has itching in the creese of his but and he has a lesion on his penis. The lesion is not painful but there is a whitish drainage. He has no dysuria. He has no drainage from his penis. He is not currently sexually active. His last sexual contact was 2 months ago and he used condom. Onset: Gradual Duration: Week(s): Improves with: Reports: None Worsens with: Reports: None Associated Symptoms: Reports: No Other Symptoms - Related Data Allergies Allergy/AdvReac Type Severity Reaction Status Date / Time No Known Allergies Allergy Verified 12/21/16 15:33 Home Meds: Home Meds Aspirin [Ecotrin] 81 mg PO DAILY 07/17/13 [History] Losartan [Cozaar] 50 mg PO DAILY 07/17/13 [History] Tamsulosin [Flomax] 0.4 mg PO DAILY 10/16/15 [History] Finasteride [Proscar] 5 mg PO DAILY 10/26/16 [History] Miconazole [Miconazole 2% Crm] 1 gm TOP BID #1 tube 12/21/16 [Rx] Past Medical History HEENT History: Reports: Impaired Vision Other HEENT History: Glasses Cardiovascular History: Reports: Hypertension Genitourinary History: Reports: BPH Neurological History: Reports: Other (See Below) - Past Surgical History GI Surgical History: Reports: Appendectomy Musculoskeletal Surgical History: Reports: Arthroscopic Knee, Carpal Tunnel Social & Family History - Family History Family Medical History: Noncontributory - Tobacco Use Smoking Status *Q: Never Smoker Second Hand Smoke Exposure: No - Caffeine Use Caffeine Use: Reports: None - Alcohol Use Days Per Week of Alcohol Use: 0 - Recreational Drug Use Recreational Drug Use: No - Living Situation & Occupation Living situation: Reports: , Other Occupation: Employed ED ROS GENERAL - Review of Systems Review Of Systems: See Below Constitutional: Reports: No Symptoms HEENT: Reports: No Symptoms Respiratory: Reports: No Symptoms Cardiovascular: Reports: No Symptoms Endocrine: Reports: No Symptoms GI/Abdominal: Reports: Other (rectal itching) : Reports: Other (Lesion on penis) ED EXAM, GENERAL - Physical Exam Exam: See Below Exam Limited By: No Limitations General Appearance: Alert, No Apparent Distress Ears: Normal External Exam Nose: Normal Inspection Head: Atraumatic, Normocephalic Neck: Normal Inspection Respiratory/Chest: No Respiratory Distress, Lungs Clear, Normal Breath Sounds Cardiovascular: Regular Rate, Rhythm, No Edema, No Murmur GI/Abdominal: Soft, Non-Tender, No Organomegaly, No Mass (Male) Exam: Other (white discharge under the foreskin on the dorsal aspect. There is no erythema) Rectal (Males) Exam: Other (Ertyhema to the creese of the upper buttock) Extremities: Normal Inspection Neurological: Alert, Oriented, No Motor/Sensory Deficits Course - Vital Signs Last Recorded V/S: Last Vital Signs Temp 97.1 F 12/21/16 15:29 Pulse 98 12/21/16 15:29 Resp 16 12/21/16 15:29 BP 106/76 12/21/16 15:29 Pulse Ox 92 L 12/21/16 15:29 - Orders/Labs/Meds Orders: Active Orders 24 hr Category Date Time Status Fluconazole [Diflucan] Med 12/21/16 16:00 Once 150 mg PO ONETIME ONE - Re-Assessments/Exams Free Text/Narrative Re-Assessment/Exam: 12/21/16 16:07 I feel this is all yeast. I will give him a dose of diflucan here and a prescription for some nystatin cream. Departure - Departure Time of Disposition: 16:10 Disposition: Home, Self-Care 01 Condition: Good Clinical Impression: Candidal balano-posthitis, Tinea cruris Tinea pedis Qualifiers: Laterality: bilateral Qualified Code(s): B35.3 - Tinea pedis - Discharge Information Prescriptions: Miconazole [Miconazole 2% Crm] 1 gm TOP BID #1 tube Referrals: PCP,Not In Area [Primary Care Provider] - Additional Instructions: Apply the cream to the affected area 2 times per day after washing. Follow up with your doctor if you are not better in 2 weeks. - My Orders Last 24 Hours: My Active Orders 12/21/16 16:00 Fluconazole [Diflucan] 150 mg PO ONETIME ONE - Assessment/Plan Last 24 Hours: My Active Orders 12/21/16 16:00 Fluconazole [Diflucan] 150 mg PO ONETIME ONE
== END 2016-12-21 16:15 | disposition home or self-care (01) ==
LOC: JD.ED 15:17
DX: N47.6 Balanoposthitis (principal); B35.6 Tinea cruris; B35.3 Tinea pedis; B37.9 Candidiasis, unspecified; I10 Essential (primary) hypertension; Z90.49 Acquired absence of other specified parts of digestive tract; Z98.890 Other specified postprocedural states; Z79.82 Long term (current) use of aspirin; Z79.899 Other long term (current) drug therapy
CPT/HCPCS: 99283; A9270

== ENCOUNTER 2016-12-27 18:24 | Emergency (ER) | payer MEDICAID ==
[2016-12-27 18:50] VITALS: BP 127/84
--- NOTE | 2016-12-27 19:34 | EDM.PDOC ---
ED HPI GENERAL MEDICAL PROBLEM - General Chief Complaint: Headache Stated Complaint: HEAD PAIN Time Seen by Provider: 12/27/16 19:34 - History of Present Illness INITIAL COMMENTS - FREE TEXT/NARRATIVE: 56-year-old male since emergency room with headaches. Patient is not having a headache at this time that he had one earlier today. Headache lasted a couple hours was right sided sabianist. Patient had no vision difficulties with this note change in hearing no ringing and buzzing in his ears and no other associated symptoms patient has not had any fevers or chills. The patient has been having these headaches little more frequently they tend to come and go several weeks ago he had several headaches in the knee cleared up and in the last several days they seem to be coming back. Family history is unremarkable patient has no history of family members with problems with aneurysms or headaches. The patient is treated for hypertension. Treatments DRY CLEANER: Reports: Other (see below) Other Treatments DRY CLEANER: none Right Head Pain Score (Numeric/FACES): 7 - Related Data Allergies Allergy/AdvReac Type Severity Reaction Status Date / Time No Known Allergies Allergy Verified 12/21/16 15:33 Home Meds: Home Meds Aspirin [Ecotrin] 81 mg PO DAILY 07/17/13 [History] Losartan [Cozaar] 50 mg PO DAILY 07/17/13 [History] Finasteride [Proscar] 5 mg PO DAILY 10/26/16 [History] Past Medical History HEENT History: Reports: Impaired Vision Other HEENT History: Glasses Cardiovascular History: Reports: Hypertension Genitourinary History: Reports: BPH Neurological History: Reports: Other (See Below) - Past Surgical History GI Surgical History: Reports: Appendectomy Musculoskeletal Surgical History: Reports: Arthroscopic Knee, Carpal Tunnel Social & Family History - Family History Family Medical History: Noncontributory - Tobacco Use Smoking Status *Q: Never Smoker Second Hand Smoke Exposure: No - Caffeine Use Caffeine Use: Reports: Tea - Alcohol Use Days Per Week of Alcohol Use: 0 - Recreational Drug Use Recreational Drug Use: No - Living Situation & Occupation Living situation: Reports: , Other Occupation: Employed ED ROS GENERAL - Review of Systems Review Of Systems: See Below Constitutional: Reports: No Symptoms. Denies: Fever, Chills HEENT: Denies: Dental Pain, Ear Pain, Eye Pain, Rhinitis, Sinus Problem Respiratory: Reports: No Symptoms Cardiovascular: Reports: No Symptoms GI/Abdominal: Reports: No Symptoms : Reports: No Symptoms Neurological: Reports: Headache. Denies: Confusion, Dizziness, Paresthesia, Syncope, Tremors, Trouble Speaking, Gait Disturbance - Physical Exam Exam: See Below Exam Limited By: No Limitations General Appearance: Alert, No Apparent Distress Eye Exam: Bilateral Eye: EOMI, Normal Inspection, PERRL Ears: Normal External Exam, Normal Canal, Hearing Grossly Normal, Normal TMs Nose: Normal Inspection, Normal Mucosa, No Blood Throat/Mouth: Normal Inspection, Normal Lips, Normal Teeth, Normal Gums, Normal Oropharynx, Normal Voice, No Airway Compromise Head Exam: Atraumatic, Normocephalic, Other (No pain over the temporal arteries) Neck: Normal Inspection, Supple, Non-Tender, Full Range of Motion. No: Lymphadenopathy (L), Lymphadenopathy (R) Respiratory/Chest: No Respiratory Distress, Lungs Clear, Normal Breath Sounds Cardiovascular: Normal Peripheral Pulses, Regular Rate, Rhythm, No Edema Neuro Exam (Abbreviated): Other (Cranial nurse 2 through 12 grossly intact all muscle groups in upper extremities are equal and appropriate bilaterally no gait abnormalities deep tendon reflexes at the brachial radialis and patella tendons are equal and appropriate bilaterally cerebellar testing is entirely within normal limits he has an entirely normal exam) Course - Vital Signs Last Recorded V/S: Last Vital Signs Temp 36.2 C 12/27/16 18:47 Pulse 77 12/27/16 18:47 Resp 20 12/27/16 18:47 BP 127/84 12/27/16 18:47 Pulse Ox 96 12/27/16 18:47 - Re-Assessments/Exams Free Text/Narrative Re-Assessment/Exam: 12/27/16 20:05 Cause of his headaches is unknown the may be tension headaches they could be cluster headaches the patient has follow-up with his regular provider tomorrow Departure - Departure Time of Disposition: 19:52 Disposition: Home, Self-Care 01 Clinical Impression: Recurrent headache - Discharge Information Referrals: PCP,Unknown [Primary Care Provider] - Forms: ED Department Discharge Additional Instructions: Return to the emergency room with any questions problems worsening symptoms. Follow up with regular physician tomorrow as scheduled. Try Tylenol as needed for your headaches.
== END 2016-12-27 20:02 | disposition home or self-care (01) ==
LOC: JD.ED 18:24
DX: R51 Headache (principal)
CPT/HCPCS: 99283; 99284

== ENCOUNTER 2017-02-08 14:38 | Emergency (ER) | payer MEDICAID ==
[2017-02-08 14:55] VITALS: BP 117/70
--- NOTE | 2017-02-08 15:20 | EDM.PDOC ---
ED HPI GENERAL MEDICAL PROBLEM - General Chief Complaint: Genitourinary Problem Stated Complaint: STOMACH PAIN Time Seen by Provider: 02/08/17 15:05 Source of Information: Reports: Patient History Limitations: Reports: No Limitations - History of Present Illness INITIAL COMMENTS - FREE TEXT/NARRATIVE: Patient is a 56-year-old male who presents to the ED complaining of itchiness to the head of his penis and also to his rectum. States he's been having some intermittent pain to his rectum with having a bowel movement. Some blood with wiping after having a bowel movement. It is red in color scant in nature. He has a history of hemorrhoids. No swelling or rash to the head of his penis. No abnormal discharge from the penis. No pain with urination. Rectal Pain Score (Numeric/FACES): 6 - Related Data Allergies Allergy/AdvReac Type Severity Reaction Status Date / Time No Known Allergies Allergy Verified 12/21/16 15:33 Home Meds: Home Meds Aspirin [Ecotrin] 81 mg PO DAILY 07/17/13 [History] Losartan [Cozaar] 50 mg PO DAILY 07/17/13 [History] Finasteride [Proscar] 5 mg PO DAILY 10/26/16 [History] Hydrocortisone Acetate [Anusol-Hc] 25 mg RC BEDTIME #14 supp.rect 02/08/17 [Rx] Past Medical History HEENT History: Reports: Impaired Vision Other HEENT History: Glasses Cardiovascular History: Reports: Hypertension Genitourinary History: Reports: BPH Neurological History: Reports: Other (See Below) - Past Surgical History GI Surgical History: Reports: Appendectomy Musculoskeletal Surgical History: Reports: Arthroscopic Knee, Carpal Tunnel Social & Family History - Family History Family Medical History: Noncontributory - Tobacco Use Smoking Status *Q: Never Smoker Second Hand Smoke Exposure: No - Caffeine Use Caffeine Use: Reports: Coffee - Alcohol Use Days Per Week of Alcohol Use: 0 - Recreational Drug Use Recreational Drug Use: No - Living Situation & Occupation Living situation: Reports: , Other Occupation: Employed ED ROS GENERAL - Review of Systems Review Of Systems: ROS reveals no pertinent complaints other than HPI. ED EXAM, RENAL/ - Physical Exam Exam: See Below Exam Limited By: No Limitations General Appearance: Alert, WD/WN, No Apparent Distress Ears: Hearing Grossly Normal Nose: Normal Inspection Throat/Mouth: Normal Voice, No Airway Compromise Neck: Normal Inspection, Supple Respiratory/Chest: No Respiratory Distress, No Accessory Muscle Use Cardiovascular: Normal Peripheral Pulses, Regular Rate, Rhythm (Male) Exam: Normal Inspection, Other (No rash present). No: Circumcised, Inguinal Lymphadenopathy, Penile Lesions, Scrotal Swelling, Scrotum Tenderness ( L), Scrotum Tenderness (R), Testicular Tenderness (L), Testicular Tenderness (R) , Urethral Discharge Rectal (Males) Exam: Hemorrhoids (No bleeding present.), Tenderness (With attempted to a digital rectal examination. Small hemorrhoids present.) Neurological: Alert, Oriented, CN II-XII Intact, Normal Cognition, No Motor/ Sensory Deficits Psychiatric: Normal Affect, Normal Mood Skin Exam: Warm, Dry, Intact, Normal Color Course - Vital Signs Last Recorded V/S: Last Vital Signs Temp 96.0 F 02/08/17 14:54 Pulse 74 02/08/17 14:54 Resp 20 02/08/17 14:54 BP 117/70 02/08/17 14:54 Pulse Ox 98 02/08/17 14:54 - Re-Assessments/Exams Free Text/Narrative Re-Assessment/Exam: Patient has small external and internal hemorrhoids present. No bleeding present. On examination of the penis their is no concerning findings. Will have the patient follow-up with PCP. Prescription for hydrocortisone suppositories provided on discharge. Departure - Departure Time of Disposition: 15:16 Disposition: Home, Self-Care 01 Condition: Good Clinical Impression: External hemorrhoid, Itching of penis - Discharge Information Prescriptions: Hydrocortisone Acetate [Anusol-Hc] 25 mg RC BEDTIME #14 supp.rect Instructions: Hemorrhoids, [id number] Referrals: PCP,Not In Area [Primary Care Provider] - Forms: ED Department Discharge Additional Instructions: As discussed you have both external and internal hemorrhoids. Treatment is hydrocortisone suppository placed at bedtime for the next 2 weeks. Take MiraLAX one capful every day with copious amounts of water. Increase your fiber intake and exercise regimen. In relation to the itchiness to the end of your penis suggest trying it off adequately with the foreskin retracted back. No rash present so no treatment at this point. Follow-up with your PCP in the next week for reevaluation.
== END 2017-02-08 15:43 | disposition home or self-care (01) ==
LOC: JD.ED 14:38
DX: K64.4 Residual hemorrhoidal skin tags (principal); L29.8 Other pruritus; I10 Essential (primary) hypertension; Z79.82 Long term (current) use of aspirin; Z79.899 Other long term (current) drug therapy
CPT/HCPCS: 99283

== ENCOUNTER 2017-11-03 19:19 | Emergency (ER) | payer MEDICAID ==
[2017-11-03 19:40] VITALS: BP 133/76
--- NOTE | 2017-11-03 20:10 | EDM.PDOC ---
ED HPI GENERAL MEDICAL PROBLEM - General Chief Complaint: Skin Complaint Stated Complaint: LEFT FOOT CELULITUS Time Seen by Provider: 11/03/17 19:59 Source of Information: Reports: Patient History Limitations: Reports: No Limitations - History of Present Illness INITIAL COMMENTS - FREE TEXT/NARRATIVE: Patient presents with worsening redness and swelling to the left foot. He started with a small papule/ulcer on the left dorsum of the left foot about 2 weeks ago. He was seen and evaluated at [facility] and started on Bactrim as well as clindamycin and Bactroban however the area has actually gotten worse. His become more red and more proximally. 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 He denies any diabetes he does have a history of high blood pressure denies any HIV hepatitis or immune problems. No fall trauma or injury no bites or stings. No red streaking noted. He denies any fevers chills or sweats, no fatigue or myalgias. 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: Home Meds Aspirin [Ecotrin] 81 mg PO DAILY 07/17/13 [History] Losartan [Cozaar] 50 mg PO DAILY 07/17/13 [History] Finasteride [Proscar] 5 mg PO DAILY 04/16/17 [History] Tamsulosin [Flomax] 0.4 mg PO DAILY 04/16/17 [History] Past Medical History HEENT History: Reports: Impaired Vision Other HEENT History: Glasses Cardiovascular History: Reports: Hypertension Genitourinary History: Reports: BPH Neurological History: Reports: Other (See Below) - Past Surgical History GI Surgical History: Reports: Appendectomy Musculoskeletal Surgical History: Reports: Arthroscopic Knee, Carpal Tunnel Social & Family History - Family History Family Medical History: Noncontributory - Tobacco Use Smoking Status *Q: Never Smoker Tobacco Use Within Last Twelve Months: No - Caffeine Use Caffeine Use: Reports: Coffee - Recreational Drug Use Recreational Drug Use: No - Living Situation & Occupation Living situation: Reports: , Other Occupation: Employed ED ROS GENERAL - Review of Systems Review Of Systems: See Below Constitutional: Denies: Fever, Chills, Malaise, Decreased Appetite Respiratory: Denies: Shortness of Breath, Cough Cardiovascular: Denies: Chest Pain GI/Abdominal: Denies: Abdominal Pain, Diarrhea, Nausea, Vomiting Musculoskeletal: Reports: Foot Pain. Denies: Joint Pain, Joint Swelling, Muscle Pain Skin: Reports: Rash, Erythema, Wound Neurological: Denies: Confusion, Dizziness, Headache ED EXAM, SKIN/RASH Exam: See Below Exam Limited By: No Limitations General Appearance: Alert, WD/WN, No Apparent Distress Respiratory/Chest: No Respiratory Distress, Lungs Clear, Normal Breath Sounds Cardiovascular: Normal Peripheral Pulses, Regular Rate, Rhythm, No Edema, No Gallop, No JVD Peripheral Pulses: 2+: Posterior Tibial (L), Posterior Tibial (R), Dorsalis Pedis (L), Dorsalis Pedis (R) GI/Abdominal: Normal Bowel Sounds, Soft Extremities: Redness Course - Vital Signs Last Recorded V/S: Last Vital Signs Temp 98.2 F 11/03/17 19:39 Pulse 75 11/03/17 19:39 Resp 20 11/03/17 19:39 BP 133/76 11/03/17 19:39 Pulse Ox 95 11/03/17 19:39 - Orders/Labs/Meds Orders: Active Orders 24 hr Category Date Time Status Peripheral IV Care [RC] . DIRECTED Care 11/03/17 20:55 Active Sodium Chloride 0.9% [Saline Flush] Med 11/03/17 20:18 Active 10 ml FLUSH ASDIRECTED PRN Peripheral IV Insertion Adult [OM.PC] Routine Oth 11/03/17 20:18 Ordered Medication Orders Sodium Chloride (Saline Flush) 10 ml FLUSH ASDIRECTED PRN PRN Reason: Keep Vein Open Last Admin: 11/03/17 21:28 Dose: 10 ml Labs: Laboratory Tests 11/03/17 11/03/17 Range/Units 21:19 21:19 WBC 6.74 (4.23-9.07) K/mm3 RBC 5.15 (4.63-6.08) M/mm3 Hgb 14.9 (13.7-17.5) gm/L Hct 44.0 (40.1-51.0) % MCV 85.4 (79.0-92.2) fl MCH 28.9 (25.7-32.2) pg MCHC 33.9 (32.2-35.5) g/dl RDW Std Deviation 43.0 (35.1-43.9) fL Plt Count 238 (163-337) K/mm3 MPV 10.7 (9.4-12.3) fl Neutrophils % (Manual) 57 (40-60) % Band Neutrophils % 0 (0-10) % Lymphocytes % (Manual) 36 (20-40) % Atypical Lymphs % 0 % Monocytes % (Manual) 6 (2-10) % Eosinophils % (Manual) 1 (0.8-7.0) % Basophils % (Manual) 0 L (0.2-1.2) Platelet Estimate Adequate RBC Morph Comment Normal Sodium 137 (136-145) mEq/L Potassium 4.4 (3.5-5.1) mEq/L Chloride 103 (98-107) mEq/L Carbon Dioxide 27 (21-32) mEq/L Anion Gap 11.4 (5-15) BUN 17 (7-18) mg/dL Creatinine 1.2 (0.7-1.3) mg/dL Est Cr Clr Drug Dosing 57.66 mL/min Estimated GFR (MDRD) > 60 (>60) mL/min BUN/Creatinine Ratio 14.2 (14-18) Glucose 110 H (74-106) mg/dL Calcium 9.1 (8.5-10.1) mg/dL Total Bilirubin 0.7 (0.2-1.0) mg/dL AST 17 (15-37) U/L ALT 20 (16-63) U/L Alkaline Phosphatase 98 (46-116) U/L C-Reactive Protein 0.7 (<1.0) mg/dL Total Protein 8.2 (6.4-8.2) g/dl Albumin 4.1 (3.4-5.0) g/dl Globulin 4.1 gm/dL Albumin/Globulin Ratio 1.0 (1-2) Meds: Medications Generic Name Dose Route Start Last Admin Trade Name Freq PRN Reason Stop Dose Admin Sodium Chloride 10 ml 11/03/17 20:18 11/03/17 21:28 Saline Flush FLUSH 10 ml ASDIRECTED PRN Administration Keep Vein Open Discontinued Medications Generic Name Dose Route Start Last Admin Trade Name Freq PRN Reason Stop Dose Admin Ampicillin Sodium/Sulbactam 100 mls @ 200 mls/hr 11/03/17 20:55 11/03/17 21: 28 Sodium 1.5 gm/ Sodium Chloride IV 11/03/17 21:24 200 mls/hr ONETIME ONE Administration - Re-Assessments/Exams Free Text/Narrative Re-Assessment/Exam: 11/03/17 22:08 Patient tolerating medications well, his white count, blood sugar and CRP essentially normal, no other major lab abnormalities. We'll have patient come back in the morning for another dose of Unasyn at about 6:30 in the morning. Have demarcated the area of redness for tonight. Doubt rapidly spreading necrotizing fasciitis, at present did not see any signs of DVT, circulatory problems or abscess. Patient will stop his antibiotic prescriptions of the clindamycin and the Bactrim for now. Departure - Departure Time of Disposition: 22:09 Disposition: Home, Self-Care 01 Clinical Impression: Cellulitis Qualifiers: Site of cellulitis of extremity: lower extremity Laterality: left - Discharge Information *PRESCRIPTION DRUG MONITORING PROGRAM REVIEWED*: Not Applicable *COPY OF PRESCRIPTION DRUG MONITORING REPORT IN PATIENT LIANA: Not Applicable Instructions: Cellulitis, Adult Referrals: Georgie Bender NP [Primary Care Provider] - Parag Colindres DO [Emergency Provider] - 1 Day Forms: ED Department Discharge Additional Instructions: Return at approximate 6:30 in the morning for recheck evaluation and second dose of Unasyn. - My Orders Last 24 Hours: My Active Orders 11/03/17 20:18 Sodium Chloride 0.9% [Saline Flush] 10 ml FLUSH ASDIRECTED PRN Peripheral IV Insertion Adult [OM.PC] Routine 11/03/17 20:55 Peripheral IV Care [RC] . DIRECTED - Assessment/Plan Last 24 Hours: My Active Orders 11/03/17 20:18 Sodium Chloride 0.9% [Saline Flush] 10 ml FLUSH ASDIRECTED PRN Peripheral IV Insertion Adult [OM.PC] Routine 11/03/17 20:55 Peripheral IV Care [RC] . DIRECTED
[2017-11-03] MEDS ORDERED: Sodium Chloride 0.9% 10 ML Syringe FLUSH PRN (20:18)
[2017-11-03] MEDS ORDERED: Ampicillin/Sulbactam Na 1.5 GM in Sodium Chloride 0.9% 100 ML IV ONE (20:55)
== END 2017-11-03 22:20 | disposition home or self-care (01) ==
LOC: JD.ED 19:19
DX: L03.116 Cellulitis of left lower limb (principal); I10 Essential (primary) hypertension; Z79.82 Long term (current) use of aspirin; Z79.899 Other long term (current) drug therapy
CPT/HCPCS: 36415; 80053; 85007; 85027; 86140; 96365; 99283; J0295; J7030; J7050; 99284

== ENCOUNTER 2018-05-13 13:38 | Emergency (ER) | payer MEDICAID ==
[2018-05-13 13:47] VITALS: BP 143/89
[2018-05-13] MEDS ORDERED: Sodium Chloride 0.9% 10 ML Syringe FLUSH PRN (14:35)
[2018-05-13] MEDS ORDERED: Ondansetron 4 MG/2 ML SDV IVPUSH ONE (14:35)
[2018-05-13] MEDS ORDERED: Albuterol/Ipratropium 3.0-0.5 MG/3 ML Neb Soln NEB ONE (14:36)
[2018-05-13] MEDS ORDERED: Sodium Chloride 0.9% 1,000 ML IV SCH (14:45)
--- NOTE | 2018-05-13 15:32 | EDM.PDOC ---
ED HPI GENERAL MEDICAL PROBLEM - General Chief Complaint: Respiratory Problem Stated Complaint: HEADACHE,DIARRHEA,COUGH Time Seen by Provider: 05/13/18 13:59 Source of Information: Reports: Patient History Limitations: Reports: No Limitations - History of Present Illness INITIAL COMMENTS - FREE TEXT/NARRATIVE: The patient presents with a cough, congestion and runny nose. He also has been coughing up some blood at times. He had a fever a couple days ago. He also has diarrhea and some abdominal cramps. He has no chest pain but he has some shortness of breath at times. He came back from [facility] about a week ago. He has nausea and vomiting. He has not been around anyone who is sick. He has generalized weakness. He has a history of hypertension. He does not smoke or drink. He also has a headache. Onset: Gradual Duration: Week(s): Location: Reports: Head, Abdomen Quality: Reports: Ache Severity: Moderate Improves with: Reports: None Worsens with: Reports: None Associated Symptoms: Reports: Cough, Fever/Chills, Headaches, Nausea/Vomiting, Shortness of Breath. 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 Aspirin [Ecotrin] 81 mg PO DAILY 07/17/13 [History] Losartan [Cozaar] 50 mg PO DAILY 07/17/13 [History] Past Medical History HEENT History: Reports: Impaired Vision Other HEENT History: Glasses Cardiovascular History: Reports: Hypertension Genitourinary History: Reports: BPH Neurological History: Reports: Other (See Below) - Past Surgical History GI Surgical History: Reports: Appendectomy Musculoskeletal Surgical History: Reports: Arthroscopic Knee, Carpal Tunnel Social & Family History - Family History Family Medical History: Noncontributory - Tobacco Use Smoking Status *Q: Never Smoker - Caffeine Use Caffeine Use: Reports: Coffee - Recreational Drug Use Recreational Drug Use: No - Living Situation & Occupation Living situation: Reports: , Other Occupation: Employed ED ROS GENERAL - Review of Systems Review Of Systems: See Below Constitutional: Reports: Fever, Chills HEENT: Reports: Other (Congestion and runny nose) Respiratory: Reports: Shortness of Breath, Cough Cardiovascular: Reports: No Symptoms Endocrine: Reports: No Symptoms GI/Abdominal: Reports: Abdominal Pain, Diarrhea, Nausea, Vomiting : Reports: No Symptoms Musculoskeletal: Reports: No Symptoms ED EXAM, GENERAL - Physical Exam Exam: See Below Exam Limited By: No Limitations General Appearance: Alert, No Apparent Distress Ears: Normal External Exam Nose: Normal Inspection Head: Atraumatic, Normocephalic Neck: Normal Inspection, Supple, Non-Tender Respiratory/Chest: No Respiratory Distress, Decreased Breath Sounds, Wheezing Cardiovascular: Regular Rate, Rhythm, No Edema, No Murmur GI/Abdominal: Soft, Non-Tender, No Organomegaly, No Mass Extremities: Normal Inspection Neurological: Alert, Oriented, No Motor/Sensory Deficits Course - Vital Signs Last Recorded V/S: Last Vital Signs Temp 98.3 F 05/13/18 13:46 Pulse 78 05/13/18 13:46 Resp 20 05/13/18 13:46 BP 143/89 H 05/13/18 13:46 Pulse Ox 94 L 05/13/18 14:36 - Orders/Labs/Meds Orders: Active Orders 24 hr Category Date Time Status Cardiac Monitoring [RC] . DIRECTED Care 05/13/18 14:35 Active Peripheral IV Care [RC] . DIRECTED Care 05/13/18 14:35 Active RT Aerosol Therapy [RC] ASDIRECTED Care 05/13/18 14:36 Active Chest 2V [CR] Stat Exams 05/13/18 14:36 Taken Sodium Chloride 0.9% [Normal Saline] 1,000 ml Med 05/13/18 14:45 Active IV .BOLUS Sodium Chloride 0.9% [Saline Flush] Med 05/13/18 14:35 Active 10 ml FLUSH ASDIRECTED PRN ED Antiemetic Medication Reflex [OM.PC] Stat Oth 05/13/18 14:35 Ordered Peripheral IV Insertion Adult [OM.PC] Stat Oth 05/13/18 14:35 Ordered Medication Orders Sodium Chloride (Normal Saline) 1,000 mls @ 1,000 mls/hr IV .BOLUS JHOAN Last Admin: 05/13/18 14:50 Dose: 1,000 mls/hr Sodium Chloride (Saline Flush) 10 ml FLUSH ASDIRECTED PRN PRN Reason: Keep Vein Open Last Admin: 05/13/18 14:51 Dose: 10 ml Labs: Laboratory Tests 05/13/18 05/13/18 Range/Units 14:45 14:45 WBC 6.70 (4.23-9.07) K/mm3 RBC 4.99 (4.63-6.08) M/mm3 Hgb 14.1 (13.7-17.5) gm/L Hct 41.5 (40.1-51.0) % MCV 83.2 (79.0-92.2) fl MCH 28.3 (25.7-32.2) pg MCHC 34.0 (32.2-35.5) g/dl RDW Std Deviation 43.6 (35.1-43.9) fL Plt Count 233 (163-337) K/mm3 MPV 10.1 (9.4-12.3) fl Neut % (Auto) 50.8 (34.0-67.9) % Lymph % (Auto) 37.3 (21.8-53.1) % Hand % (Auto) 8.8 (5.3-12.2) % Eos % (Auto) 2.1 (0.8-7.0) Baso % (Auto) 0.9 (0.1-1.2) % Neut # (Auto) 3.40 (1.78-5.38) K/mm3 Lymph # (Auto) 2.50 (1.32-3.57) K/mm3 Hand # (Auto) 0.59 (0.30-0.82) K/mm3 Eos # (Auto) 0.14 (0.04-0.54) K/mm3 Baso # (Auto) 0.06 (0.01-0.08) K/mm3 Manual Slide Review Abnormal smear Sodium 141 (136-145) mEq/L Potassium 3.3 L (3.5-5.1) mEq/L Chloride 104 (98-107) mEq/L Carbon Dioxide 26 (21-32) mEq/L Anion Gap 14.3 (5-15) BUN 15 (7-18) mg/dL Creatinine 1.0 (0.7-1.3) mg/dL Est Cr Clr Drug Dosing 68.33 mL/min Estimated GFR (MDRD) > 60 (>60) mL/min BUN/Creatinine Ratio 15.0 (14-18) Glucose 130 H (74-106) mg/dL Calcium 9.0 (8.5-10.1) mg/dL Magnesium 1.9 (1.8-2.4) mg/dl Total Bilirubin 0.2 (0.2-1.0) mg/dL AST 18 (15-37) U/L ALT 20 (16-63) U/L Alkaline Phosphatase 93 (46-116) U/L C-Reactive Protein 2.7 H* (<1.0) mg/dL Total Protein 7.8 (6.4-8.2) g/dl Albumin 3.4 (3.4-5.0) g/dl Globulin 4.4 gm/dL Albumin/Globulin Ratio 0.8 L (1-2) Meds: Medications Generic Name Dose Route Start Last Admin Trade Name Freq PRN Reason Stop Dose Admin Sodium Chloride 1,000 mls @ 1,000 mls/hr 05/13/18 14:45 05/13/18 14:50 Normal Saline IV 1,000 mls/hr .BOLUS JHOAN Administration Sodium Chloride 10 ml 05/13/18 14:35 05/13/18 14:51 Saline Flush FLUSH 10 ml ASDIRECTED PRN Administration Keep Vein Open Discontinued Medications Generic Name Dose Route Start Last Admin Trade Name Freq PRN Reason Stop Dose Admin Albuterol/Ipratropium 3 ml 05/13/18 14:36 05/13/18 14:42 Duoneb 3.0-0.5 Mg/3 Ml NEB 05/13/18 14:37 3 ml ONETIME ONE Administration Ondansetron HCl 4 mg 05/13/18 14:35 05/13/18 14:50 Zofran IVPUSH 05/13/18 14:36 4 mg ONETIME ONE Administration - Re-Assessments/Exams Free Text/Narrative Re-Assessment/Exam: 05/13/18 15:35 I ordered an IV NS 1L bolus, zofran 4mg IV, labs and a CXR. 05/13/18 16:48 His CXR shows some bronchitis. His CBC and CMP look good. His CRP was elevated at 2.7. I will get him on some zithromax, albuterol and zofran. Departure - Departure Time of Disposition: 16:50 Disposition: Home, Self-Care 01 Condition: Good Clinical Impression: Bronchitis Vomiting Qualifiers: Vomiting type: unspecified Vomiting Intractability: non-intractable Nausea presence: with nausea Qualified Code(s): R11.2 - Nausea with vomiting, unspecified Diarrhea Qualifiers: Diarrhea type: unspecified type Qualified Code(s): R19.7 - Diarrhea, unspecified - Discharge Information *PRESCRIPTION DRUG MONITORING PROGRAM REVIEWED*: No *COPY OF PRESCRIPTION DRUG MONITORING REPORT IN PATIENT LIANA: No Referrals: Georgie Bender NP [Primary Care Provider] - Forms: ED Department Discharge Additional Instructions: Use the inhaler 2 puffs every 6 hours as needed for shortness of breath. Take the zithromax 2 pills on day 1 and 1 pill on day 2 through 5. Take the zofran as needed for nausea and vomiting. Please return if you are worse. - My Orders Last 24 Hours: My Active Orders 05/13/18 14:35 Cardiac Monitoring [RC] . DIRECTED Peripheral IV Care [RC] . DIRECTED Sodium Chloride 0.9% [Saline Flush] 10 ml FLUSH ASDIRECTED PRN ED Antiemetic Medication Reflex [OM.PC] Stat Peripheral IV Insertion Adult [OM.PC] Stat 05/13/18 14:36 RT Aerosol Therapy [RC] ASDIRECTED Chest 2V [CR] Stat 05/13/18 14:45 Sodium Chloride 0.9% [Normal Saline] 1,000 ml IV .BOLUS - Assessment/Plan Last 24 Hours: My Active Orders 05/13/18 14:35 Cardiac Monitoring [RC] . DIRECTED Peripheral IV Care [RC] . DIRECTED Sodium Chloride 0.9% [Saline Flush] 10 ml FLUSH ASDIRECTED PRN ED Antiemetic Medication Reflex [OM.PC] Stat Peripheral IV Insertion Adult [OM.PC] Stat 05/13/18 14:36 RT Aerosol Therapy [RC] ASDIRECTED Chest 2V [CR] Stat 05/13/18 14:45 Sodium Chloride 0.9% [Normal Saline] 1,000 ml IV .BOLUS
[2018-05-13] MEDS ORDERED: Albuterol 6.7 GM Inhaler INH ONE (16:49)
--- NOTE | 2018-05-14 09:06 | CR ---
Chest: Two views of the chest were obtained. Comparison: Prior chest x-ray of 07/17/14. Heart size is normal. Tortuous thoracic aorta is seen. Lungs are clear with no acute parenchymal change. Incidental scoliosis noted within the spine. Impression: 1. Nothing acute is seen on two-view chest x-ray. Diagnostic code #2
== END 2018-05-13 17:03 | disposition home or self-care (01) ==
LOC: JD.ED 13:38
DX: J40 Bronchitis, not specified as acute or chronic (principal); R11.2 Nausea with vomiting, unspecified; R19.7 Diarrhea, unspecified; I10 Essential (primary) hypertension; Z79.82 Long term (current) use of aspirin; Z90.49 Acquired absence of other specified parts of digestive tract
CPT/HCPCS: 36415; 71046; 80053; 83735; 85025; 86140; 87804; 94640; 96361; 96374; 99285; A9270; J2405; J7040; 99284; J7620-GY

== ENCOUNTER 2018-06-12 13:11 | Emergency (ER) | payer MEDICAID ==
[2018-06-12 13:20] VITALS: BP 117/90
--- NOTE | 2018-06-12 13:58 | EDM.PDOC ---
<Ramesh Xie - Last Filed: 06/12/18 14:13> ED HPI GENERAL MEDICAL PROBLEM - General Chief Complaint: Genitourinary Problem Stated Complaint: URINARY TRACT ISSUES Time Seen by Provider: 06/12/18 13:37 Source of Information: Reports: Patient History Limitations: Reports: Language Barrier (Patient says one thing and then says something different) - History of Present Illness INITIAL COMMENTS - FREE TEXT/NARRATIVE: Efe Bella is a 58 year old male who presents to the ED for urinary retention. He states that last night he was having increased frequency and urgency last night and then this morning he has been having increased difficulty with urination. Originally he stated that he hasn't urinated at all today but then he states that he may have urinated 1-2 times but it was very small amounts. He states that his bladder feels empty. He has had no change in his BM. He has a hx. of prostate issues and his PSA level was at 20 two weeks ago. He has an appointment with Urology in [place] on 06/19/2018. He states that he is on Oxybutynin (which is not in his chart) and another medication that he's not sure what it is. He denies any family hx. of bladder or prostate cancer. 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: Home Meds Aspirin [Ecotrin] 81 mg PO DAILY 07/17/13 [History] Losartan [Cozaar] 50 mg PO DAILY 07/17/13 [History] Past Medical History HEENT History: Reports: Impaired Vision Other HEENT History: Glasses Cardiovascular History: Reports: Hypertension Genitourinary History: Reports: BPH Neurological History: Reports: Other (See Below) - Past Surgical History GI Surgical History: Reports: Appendectomy Musculoskeletal Surgical History: Reports: Arthroscopic Knee, Carpal Tunnel Social & Family History - Family History Family Medical History: Noncontributory - Tobacco Use Smoking Status *Q: Never Smoker - Caffeine Use Caffeine Use: Reports: Coffee - Recreational Drug Use Recreational Drug Use: No - Living Situation & Occupation Living situation: Reports: , Other Occupation: Employed ED ROS GENERAL - Review of Systems Constitutional: Reports: No Symptoms Respiratory: Reports: No Symptoms Cardiovascular: Reports: No Symptoms GI/Abdominal: Reports: No Symptoms : Reports: Urinary Retention. Denies: Discharge, Dysuria, Hematuria, Pain Neurological: Reports: No Symptoms ED EXAM, RENAL/ - Physical Exam Exam Limited By: No Limitations General Appearance: Alert, WD/WN, No Apparent Distress Eye Exam: Bilateral Eye: Normal Inspection Respiratory/Chest: No Respiratory Distress, Lungs Clear, Normal Breath Sounds, No Accessory Muscle Use, Chest Non-Tender Cardiovascular: Normal Peripheral Pulses, Regular Rate, Rhythm, No Edema, No Gallop, No JVD, No Murmur, No Rub GI/Abdominal: Normal Bowel Sounds, Soft, Non-Tender, No Organomegaly, No Distention, No Abnormal Bruit, No Mass (Male) Exam: Suprapubic Fullness Back Exam: Normal Inspection, Full Range of Motion. No: CVA Tenderness (L), CVA Tenderness (R) Neurological: No Motor/Sensory Deficits Psychiatric: Normal Affect, Normal Mood Course - Vital Signs Last Recorded V/S: Last Vital Signs Temp 97.7 F 06/12/18 13:18 Pulse 94 06/12/18 13:18 Resp 18 06/12/18 13:18 BP 117/90 06/12/18 13:18 Pulse Ox 92 L 06/12/18 13:18 - Orders/Labs/Meds Orders: Active Orders 24 hr Category Date Time Status Bladder Scan [RC] ASDIRECTED Care 06/12/18 14:23 Active Labs: Laboratory Tests 06/12/18 Range/Units 14:28 Urine Color Yellow (Yellow) Urine Appearance Clear (Clear) Urine pH 7.5 (5.0-8.0) Ur Specific [place] 1.015 (1.005-1.030) Urine Protein Negative (Negative) Urine Glucose (UA) Negative (Negative) Urine Ketones Negative (Negative) Urine Occult Blood Negative (Negative) Urine Nitrite Negative (Negative) Urine Bilirubin Negative (Negative) Urine Urobilinogen 0.2 (0.2-1.0) Ur Leukocyte Esterase Negative (Negative) Urine RBC Not seen (0-5) /hpf Urine WBC Not seen (0-5) /hpf Ur Epithelial Cells Not seen (0-5) /hpf Urine Bacteria Occasional (FEW) /hpf Urine Mucus Not seen (FEW) /hpf Departure - Departure Disposition: Home, Self-Care 01 Clinical Impression: Urinary retention due to benign prostatic hyperplasia - Discharge Information Instructions: Benign Prostatic Hyperplasia Referrals: PCP,Unknown [Primary Care Provider] - Forms: ED Department Discharge Additional Instructions: You have been evaluated in the ED today for your urinary retention. You did not have a UTI at this point in time. Please keep your appointment with the urologist for next week Monday for further evaluation of the elevated PSA. Please return to the ED if her symptoms change or worsen. 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 ED ROS GENERAL - Review of Systems Review Of Systems: See Below ED EXAM, RENAL/ - Physical Exam Exam: See Below Course - Orders/Labs/Meds Labs: Laboratory Tests 06/12/18 Range/Units 14:28 Urine Color Yellow (Yellow) Urine Appearance Clear (Clear) Urine pH 7.5 (5.0-8.0) Ur Specific [place] 1.015 (1.005-1.030) Urine Protein Negative (Negative) Urine Glucose (UA) Negative (Negative) Urine Ketones Negative (Negative) Urine Occult Blood Negative (Negative) Urine Nitrite Negative (Negative) Urine Bilirubin Negative (Negative) Urine Urobilinogen 0.2 (0.2-1.0) Ur Leukocyte Esterase Negative (Negative) Urine RBC Not seen (0-5) /hpf Urine WBC Not seen (0-5) /hpf Ur Epithelial Cells Not seen (0-5) /hpf Urine Bacteria Occasional (FEW) /hpf Urine Mucus Not seen (FEW) /hpf - Re-Assessments/Exams Free Text/Narrative Re-Assessment/Exam: 06/12/18 14:13 Patient presents to the ED for the evaluation of urinary retention. I did have the nurse to bladder scanner she said initially there was 190mLs in his bladder she had him void and he had 140 mLs left over. I did order a straight catheter with urinalysis at this time to drain his bladder fully. 06/12/18 14:59 Patient's UA is done and does not demonstrate any acute bacterial infection at this time I will reassess the patient at bedside, he will likely be discharged home with recommendation for follow-up with the urologist next Monday as previously scheduled. Departure - Departure Time of Disposition: 15:17 Condition: Fair - Discharge Information *PRESCRIPTION DRUG MONITORING PROGRAM REVIEWED*: No *COPY OF PRESCRIPTION DRUG MONITORING REPORT IN PATIENT LIANA: No
== END 2018-06-12 15:27 | disposition home or self-care (01) ==
LOC: JD.ED 13:11
DX: N40.1 Benign prostatic hyperplasia with lower urinary tract symptoms (principal); R33.8 Other retention of urine; I10 Essential (primary) hypertension; Z79.82 Long term (current) use of aspirin; Z79.899 Other long term (current) drug therapy
CPT/HCPCS: 51798; 81001; 99282; 99283

== ENCOUNTER 2018-06-29 13:46 | Emergency (ER) | payer MEDICAID ==
[2018-06-29 13:58] VITALS: BP 128/85
--- NOTE | 2018-06-29 14:29 | EDM.PDOC ---
ED HPI GENERAL MEDICAL PROBLEM - General Chief Complaint: Chest Pain Stated Complaint: CHEST PAIN X 2 DAYS Time Seen by Provider: 06/29/18 14:04 Source of Information: Reports: Patient, RN Notes Reviewed History Limitations: Reports: No Limitations - History of Present Illness INITIAL COMMENTS - FREE TEXT/NARRATIVE: The patient told the triage nurse that he has been suffering from epigastric and left-sided chest pain, however, he is demonstrating to me that he has been experiencing sharp epigastric and left upper quadrant abdominal, not left sided chest pain, on and off for the past 2-3 weeks. When present, it lasts only seconds to 1 minute, recurring 1-2 times per day. He has not identified any modifiers nor been able to predict when it will occur. He has no associated dyspnea, nausea, diaphoresis, or sense of impending doom. No prior evaluation for these symptoms. The patient's PCP is Georgie Bender. The patient states that he has an appointment to see her this coming 07/03/2018, at 10 AM. - Related Data Allergies Allergy/AdvReac Type Severity Reaction Status Date / Time No Known Allergies Allergy Verified 06/29/18 13:58 Home Meds: Home Meds Aspirin [Ecotrin] 81 mg PO DAILY 07/17/13 [History] Losartan [Cozaar] 50 mg PO DAILY 07/17/13 [History] Past Medical History HEENT History: Reports: Impaired Vision Other HEENT History: wears glasses Cardiovascular History: Reports: Hypertension Genitourinary History: Reports: BPH - Past Surgical History GI Surgical History: Reports: Appendectomy, Colonoscopy (2017 or 2018) Musculoskeletal Surgical History: Reports: Arthroscopic Knee (bilateral), Carpal Tunnel (right only) Social & Family History - Family History Family Medical History: Noncontributory - Tobacco Use Smoking Status *Q: Never Smoker - Caffeine Use Caffeine Use: Reports: Coffee - Alcohol Use Alcohol Use History: No - Recreational Drug Use Recreational Drug Use: No - Living Situation & Occupation Living situation: Reports: , Alone 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 ED EXAM, GI/ABD - Physical Exam Exam: See Below Exam Limited By: No Limitations General Appearance: Alert, WD/WN, No Apparent Distress Eyes: Bilateral: Normal Appearance, EOMI Ears: Normal External Exam, Hearing Grossly Normal Nose: Normal Inspection Throat/Mouth: Normal Inspection, Normal Lips, Normal Voice, No Airway Compromise Head: Atraumatic, Normocephalic Neck: Normal Inspection, Full Range of Motion Respiratory/Chest: No Respiratory Distress, Lungs Clear, Normal Breath Sounds, No Accessory Muscle Use, Chest Non-Tender Cardiovascular: Normal Peripheral Pulses, Regular Rate, Rhythm, No Edema, No Gallop, No JVD, No Murmur, No Rub GI/Abdominal Exam: Normal Bowel Sounds, Soft, Non-Tender (including the epigastrium and LUQ), No Organomegaly, No Distention, No Abnormal Bruit, No Mass (Male) Exam: Deferred Rectal (Males) Exam: Deferred Back Exam: Normal Inspection, Full Range of Motion, NT Extremities: Normal Inspection, Normal Range of Motion, No Pedal Edema, Normal Capillary Refill Neurological: Alert, Oriented, Normal Cognition, No Motor/Sensory Deficits Psychiatric: Normal Affect Skin Exam: Warm, Dry, Intact, Normal Color, No Rash EKG INTERPRETATION EKG Date: 06/29/18 Time: 13:54 Rhythm: NSR Rate (Beats/Min): 87 [place]: Normal (Borderline LAD) P-Wave: Present (Borderline 1 AVB) QRS: Normal (Late transition) ST-T: Normal QT: Normal Comparison: No Change (10/16/2015) Course - Vital Signs Last Recorded V/S: Last Vital Signs Temp 36.9 C 06/29/18 13:55 Pulse 88 06/29/18 13:55 Resp 16 06/29/18 13:55 BP 128/85 06/29/18 13:55 Pulse Ox 97 06/29/18 13:55 - Orders/Labs/Meds Orders: Active Orders 24 hr Category Date Time Status EKG Documentation Completion [RC] STAT Care 06/29/18 14:09 Active - Re-Assessments/Exams Free Text/Narrative Re-Assessment/Exam: 06/29/18 14:24 The cause of the patient's intermittent left upper quadrant abdominal pain is unclear, but his abdominal exam is completely benign at this time. I have ordered a KUB to evaluate for constipation, but if negative, then I don't know that I will be able to give the patient a diagnosis today. 06/29/18 15:03 KUB appears to demonstrate a fair amount of stool in the right colon/cecum, but no significant amount of stool elsewhere. Otherwise nonspecific bowel gas pattern. Metallic objects projected over the right iliac crest - unclear if these are intra-abdominal phuong secondary to prior appendectomy, or related to the patient's clothing. Formal read per the Radiologist pending. 06/29/18 15:08 X-ray results discussed with the patient. As above, the cause of his intermittent left upper quadrant abdominal pain is unclear. If his symptoms persist, he may benefit from a colonoscopy. The patient tells me that he has an appointment to see his PCP at the [facility] this coming 07/03/2018 , at 10 AM. He can discuss that option with her at that time. Departure - Departure Time of Disposition: 15:09 Disposition: Home, Self-Care 01 Condition: Good Clinical Impression: Left upper quadrant abdominal pain of unknown etiology - Discharge Information *PRESCRIPTION DRUG MONITORING PROGRAM REVIEWED*: Not Applicable *COPY OF PRESCRIPTION DRUG MONITORING REPORT IN PATIENT LIANA: Not Applicable Instructions: Abdominal Pain, Adult, [id number] Referrals: Georgie Bender REGISTERED NURSE [facility] [Primary Care Provider] - Forms: ED Department Discharge Additional Instructions: You were seen in the emergency room for sharp left upper abdominal pain on and off over the past 2-3 weeks. Workup in the ER included an ECG and a x-ray of your abdomen, both of which were normal. The cause of your abdominal pain is unclear. If it persists, we recommend you discuss this with your PCP, Georgie Bender, when you see her at your previously scheduled appointment this coming 07/03/2018, at 10 AM. You may benefit from a colonoscopy. If any other problems, please do not hesitate to return to the ER. - My Orders Last 24 Hours: My Active Orders 06/29/18 14:09 EKG Documentation Completion [RC] STAT - Assessment/Plan Last 24 Hours: My Active Orders 06/29/18 14:09 EKG Documentation Completion [RC] STAT
--- NOTE | 2018-06-29 16:28 | CR ---
Abdomen: Supine view of the abdomen was obtained. Comparison: No prior abdominal x-ray Bowel gas pattern is normal. Calcifications are seen within the right mid to lower abdomen of uncertain etiology but are likely benign and possibly due to bowel content. Surgical material is seen within the right lower abdomen. Bony structures appear within normal limits. Impression: 1. Incidental findings as noted above. Nothing acute is suspected. Diagnostic code #2
== END 2018-06-29 15:20 | disposition home or self-care (01) ==
LOC: JD.ED 13:46
DX: R10.12 Left upper quadrant pain (principal); R10.13 Epigastric pain; I10 Essential (primary) hypertension; Z90.49 Acquired absence of other specified parts of digestive tract; Z79.82 Long term (current) use of aspirin; Z79.899 Other long term (current) drug therapy
CPT/HCPCS: 74018; 74018-26; 93005; 93010; 99283; 99285-25

== ENCOUNTER 2019-04-16 07:36 | Inpatient (IN) | payer MEDICAID ==
[~2019-04-16 07:36] MED LIST: Lactated Ringers 1,000 ML IV SCH; Lidocaine 1%/Sod Bicarbonate in NS 8.4% 1 ML Syringe IDERM PRN; Sodium Chloride 0.9% 10 ML Syringe FLUSH PRN
[2019-04-16] MEDS ORDERED: Rocuronium 50 MG/5 ML Vial ONE ×2 (08:36→13:14)
[2019-04-16] MEDS ORDERED: Ondansetron 4 MG/2 ML SDV ONE ×3 (08:36→16:21)
[2019-04-16] MEDS ORDERED: Lidocaine 1% 4 ML ONE (08:36)
[2019-04-16] MEDS ORDERED: Midazolam 1 MG/ML 2 ML SDV ONE (08:36)
[2019-04-16] MEDS ORDERED: Propofol 200 MG/20 ML SDV ONE (08:36)
[2019-04-16] MEDS ORDERED: fentaNYL 250 MCG/5 ML SDV ONE (08:37)
[2019-04-16] MEDS ORDERED: Lidocaine 1% 50 ML MDV ONE (08:41)
--- NOTE | 2019-04-16 08:51 | PCM.PREANE ---
Preanesthetic Assessment - Procedure Proposed Procedure: lap hiatal hernia repair - Anesthesia/Transfusion/Family Hx Anesthesia History: Prior Anesthesia Without Reaction Family History of Anesthesia Reaction: No Transfusion History: No Prior Transfusion(s) - Review of Systems General: No Symptoms Pulmonary: Cough (cough this am) Cardiovascular: No Symptoms Gastrointestinal: No Symptoms Neurological: No Symptoms Other: Reports: None - Physical Assessment NPO Status Date: 04/15/19 NPO Status Time: 18:00 Vital Signs: Last Vital Signs Temp 98.9 F 04/16/19 07:40 Pulse 107 H 04/16/19 07:40 Resp 16 04/16/19 07:40 BP 140/92 H 04/16/19 07:40 Pulse Ox 100 04/16/19 07:40 Height: 5 ft 3 in Weight: 69.4 kg ASA Class: 2 Mental Status: Alert & Oriented x3 Airway Class: Mallampati = 1 Dentition: Reports: Normal Dentition Thyro-Mental Finger Breadths: 3 Mouth Opening Finger Breadths: 3 ROM/Head Extension: Full Lungs: Clear to Auscultation, Normal Respiratory Effort Cardiovascular: Regular Rate, Regular Rhythm - Allergies Allergies/Adverse Reactions: Allergies Allergy/AdvReac Type Severity Reaction Status Date / Time No Known Allergies Allergy Verified 04/15/19 13:33 - Blood Blood Available: No - Acknowledgements Anesthesia Type Planned: General Anesthesia Pt an Appropriate Candidate for the Planned Anesthesia: Yes Alternatives and Risks of Anesthesia Discussed w Pt/Guardian: Yes Pt/Guardian Understands and Agrees with Anesthesia Plan: Yes PreAnesthesia Questionnaire HEENT History: Reports: Impaired Vision Other HEENT History: wears glasses Cardiovascular History: Reports: Hypertension Respiratory History: Reports: None Gastrointestinal History: Reports: Colon Polyp, GERD, Hiatal Hernia Genitourinary History: Reports: BPH, Other (See Below) Other Genitourinary History: urinary retention 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 Musculoskeletal History: Reports: Other (See Below) Other Musculoskeletal History: degenerative TFCC tear, distal radioulnar joint instability Neurological History: Reports: Other (See Below) Other Neuro History: hemifacial spasms Psychiatric History: Reports: None Endocrine/Metabolic History: Reports: None Hematologic History: Reports: None Immunologic History: Reports: None Oncologic (Cancer) History: Reports: None Dermatologic History: Reports: None - Past Surgical History Head Surgeries/Procedures: Reports: None HEENT Surgical History: Reports: Eye Surgery Cardiovascular Surgical History: Reports: None Respiratory Surgical History: Reports: None GI Surgical History: Reports: Appendectomy, Colonoscopy, EGD Female Surgical History: Reports: None Male Surgical History: Reports: None Endocrine Surgical History: Reports: None Neurological Surgical History: Reports: None Musculoskeletal Surgical History: Reports: Arthroscopic Knee, Carpal Tunnel Oncologic Surgical History: Reports: None Dermatological Surgical History: Reports: None - SUBSTANCE USE Smoking Status *Q: Never Smoker Tobacco Use Within Last Twelve Months: No Second Hand Smoke Exposure: No Days Per Week of Alcohol Use: 0 Recreational Drug Use History: No - HOME MEDS Home Medications: Home Meds Aspirin [Ecotrin EC] 81 mg PO DAILY 07/17/13 [History] Losartan [Cozaar] 50 mg PO DAILY 07/17/13 [History] Acetaminophen [Tylenol] 1,500 - 2,000 mg PO DAILY PRN 04/15/19 [History] Multivitamin [Multi-Vitamin Daily] 1 tab PO DAILY 04/15/19 [History] Omeprazole 40 mg PO DAILY 04/15/19 [History] Tamsulosin HCl [Flomax] 0.8 mg PO QPM 04/15/19 [History] - CURRENT (IN HOUSE) MEDS Current Meds: Current Medications Lactated Ringer's (Ringers, Lactated) 1,000 mls @ 125 mls/hr IV ASDIRECTED JHOAN Stop: 04/16/19 23:00 Last Admin: 04/16/19 08:00 Dose: 125 mls/hr Lidocaine/Sodium Bicarbonate (Buffered Lidocaine 1% In Ns 8.4%) 0.25 ml IDERM ONETIME PRN PRN Reason: Prior to IV Start Stop: 04/16/19 23:00 Last Admin: 04/16/19 07:59 Dose: 0.25 ml Sodium Chloride (Saline Flush) 10 ml FLUSH ASDIRECTED PRN PRN Reason: Keep Vein Open Stop: 04/16/19 23:00 Discontinued Medications Fentanyl (Sublimaze) Confirm Administered Dose 250 mcg .ROUTE .STK-MED ONE Stop: 04/16/19 08:38 Lidocaine HCl (Xylocaine-Mpf 1%) Confirm Administered Dose 4 mls @ as directed .ROUTE .STK-MED ONE Stop: 04/16/19 08:37 Midazolam HCl (Versed 1 Mg/Ml) Confirm Administered Dose 2 mg .ROUTE .STK-MED ONE Stop: 04/16/19 08:37 Ondansetron HCl (Zofran) Confirm Administered Dose 4 mg .ROUTE .STK-MED ONE Stop: 04/16/19 08:37 Propofol (Diprivan 20 Ml) Confirm Administered Dose 200 mg .ROUTE .STK-MED ONE Stop: 04/16/19 08:37 Rocuronium [place] (Zemuron) Confirm Administered Dose 50 mg .ROUTE .STK-MED ONE Stop: 04/16/19 08:37
[2019-04-16] MEDS ORDERED: ceFAZolin 1 GM Vial ONE ×2 (08:55→13:38)
[2019-04-16] MEDS ORDERED: Succinylcholine/Normal Saline 100 MG/5 ML Syringe ONE (09:58)
[2019-04-16] MEDS ORDERED: Lactated Ringers 1,000 ML ONE ×3 (10:01→15:03)
[2019-04-16] MEDS ORDERED: Phenylephrine/Normal Saline 100 MCG/ML 10 ML Syringe ONE (12:17)
[2019-04-16] MEDS ORDERED: HYDROmorphone 0.5 MG/0.5 ML Syringe ONE ×3 (12:31→15:37)
[2019-04-16] MEDS ORDERED: Ondansetron 4 MG/2 ML SDV IVPUSH PRN (16:01)
[2019-04-16] MEDS ORDERED: HYDROmorphone 0.5 MG/0.5 ML Syringe IVPUSH PRN (16:01)
[2019-04-16] MEDS ORDERED: Bupivacaine 0.25% 10 ML SDV ONE (16:09)
--- NOTE | 2019-04-16 16:56 | PCM.POSTAN ---
POST ANESTHESIA ASSESSMENT - MENTAL STATUS Mental Status: Alert, Confused - VITAL SIGNS Vital Signs: Last Vital Signs Temp 97.9 F 04/16/19 16:43 Pulse 99 04/16/19 16:43 Resp 15 04/16/19 16:43 BP 103/58 L 04/16/19 16:43 Pulse Ox 100 04/16/19 16:43 - RESPIRATORY Respiratory Status: Respiratory Rate WNL, Airway Patent, O2 Saturation Stable, Supplemental Oxygen - CARDIOVASCULAR CV Status: Pulse Rate WNL, Blood Pressure Stable - GASTROINTESTINAL GI Status: No Symptoms - PAIN Pain Score: 7 (ORDERS IN) - POST OP HYDRATION Hydration Status: Adequate & Stable
[2019-04-16] MEDS: fentaNYL 100 MCG/2 ML SDV IVPUSH PRN ×2 (17:07→17:18)
[2019-04-16] MEDS ORDERED: Morphine 4 MG/ML VIAL IVPUSH PRN (17:46)
[2019-04-16] MEDS ORDERED: Promethazine 25 MG/ML SDV IM PRN (17:46)
[2019-04-16] MEDS ORDERED: hydrOXYzine HCl 25 MG/ML SDV IM PRN (17:46)
[2019-04-16] MEDS ORDERED: Acetaminophen/HYDROcodone 325-5 MG Tab PO PRN (17:46)
[2019-04-16] MEDS ORDERED: Ondansetron 4 MG Tab.DIS PO SCH (18:00)
[2019-04-16] MEDS ORDERED: Acetaminophen 325 MG Tab PO SCH (18:00)
--- NOTE | 2019-04-16 19:10 | OR ---
DATE OF OPERATION: 04/16/2019 SURGEON: Viet Quinones MD PREOPERATIVE DIAGNOSIS: Gastroesophageal reflux disease and hiatal hernia. POSTOPERATIVE DIAGNOSIS: Gastroesophageal reflux disease and hiatal hernia. OPERATION PERFORMED: 1. Laparoscopic hiatal hernia repair and Toupet fundoplication. 2. Esophagogastroduodenoscopy 3. Transversus abdominis plane blocks ANESTHESIA: Endotracheal. URINE OUTPUT: 250. FLUIDS: 3600. ESTIMATED BLOOD LOSS: 100 mL. COMPLICATIONS: None. NEED FOR ASSISTANCE: Skilled assistance was needed in this case. The patient care assistant helped with patient positioning, holding of the camera and retractors as well as incision closure at the end of the case. INDICATIONS AND CONSENT: The patient is a 59-year-old male who is with longstanding gastroesophageal reflux disease. The patient underwent evaluation including EGD and upper GI study, both of which confirmed signs of reflux as well as a 5 cm hiatal hernia. The patient continued to have symptoms despite maximal medical management and presented to my clinic. I evaluated the patient and recommended that the patient undergo hiatal hernia repair with anti-reflux surgery. 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 Once the patient understood surgical benefits, he decided to proceed with surgery. Prior to proceeding, we had the patient undergo impedance as well as motility study. Motility study revealed 40% ineffective peristalsis with low LES resting pressures. Therefore, I recommended the patient undergo hiatal hernia repair with partial fundoplication. The patient agreed to proceed. We discussed various risks, benefits, and options. Risks discussed included injury to the vagal nerves, bleeding, pneumothorax, infection, recurrence, need to undergo further interventions, wound complication, and infection. The patient understood, all questions were answered. Informed consent was obtained. DESCRIPTION OF PROCEDURE: The patient was taken to the operating room, placed in supine position. Following induction of general endotracheal anesthesia, preop antibiotics were given. SCDs were placed. The patient was padded, and the patient's position was changed into a modified lithotomy position to allow the surgeon to windshield technician between the legs. Then, the abdomen was clipped of any hair, and it was prepped and draped in the usual sterile fashion. A formal time-out was performed before the start of the procedure. We began the procedure by making a stab incision in the Hernandez's point in the left upper quadrant. Then, a Veress needle was placed, and the abdomen was insufflated to 15 mmHg. Then, a 12 Optiview trocar was placed just to the left and superior of the umbilicus under direct visualization of laparoscope. The abdomen was entered. Quick inspection revealed no injury due to trocar placement or due to Veress needle placement. Then, another 12 mm trocar was placed in the left upper quadrant and then two 5 mm trocars were placed, 1 in the right upper quadrant and another 1 in the left flank for patient care assistant. Next, a subxiphoid Allen liver retractor was placed, and the liver was elevated, and the retractor was stabilized with a Fast clamp. Next, the patient's position was modified into reverse Trendelenburg, and then dissection was began. We began by reducing hernia contents, which contained half the stomach, back into the abdomen and then incision was made in the left jose going all the way into the right jose until the muscle belly of the crura was visualized. Then, the hernia sac was mobilized on the left laterally and anteriorly all the way to the mediastinum. Then our attention was turned to the right side. Pars flaccida was taken down with LigaSure Impact. Likewise, the peritoneum overlying the right jose was divided with a Bovie, exposing the muscle belly of the right jose. Then, once again, the hernia sac on the right side was dissected all the way to the mediastinum, and then the left dissection was connected to the right dissection, completing the anterior and lateral dissection of the hernia sac. While dissecting the left portion of the hernia sac, the pleura was entered with a small laceration, but there were no hemodynamic changes to the patient. Once this was done, we proceeded with entering the lesser sac. The patient care assistant and the surgeon placed retractors so that the greater curvature and greater omentum were grasped, and then using LigaSure Impact, the lesser sac was entered, dissecting about 1 cm away from the edge of the greater curvature. Dissection was started at the mid stomach and was carried out all the way to the incisura, transecting and sealing off splenic short gastric veins. Any posterior attachments to the stomach were also divided. Once this was done, the left jose muscle was also dissected off posteriorly to make a window in the retro-esophagus. Once this window was made, a [place] was passed through this window and secured with clips. With the patient care assistant retracting the [place] anteriorly and inferiorly, posterior attachments to the esophagus were taken down with LigaSure Impact, completing the 360 dissection of the hernia sac. Hernia sac was transected with LigaSure Impact and removed. There was also a large esophageal fat pad, which was also transected and removed with an EndoCatch bag. Once the dissection was done, we proceeded with mediastinal dissection of the esophagus. This was completed without any injuries, and at this point, we had about 4 cm of the esophagus that was intraabdominal, that was staying intra-abdominally without any tension. At this point, we proceeded with repair of the left pleural defect, and this was reapproximated with 2-0 Vicryl stitches in an interrupted fashion. Once this was done, we proceeded with crura closure. The crura was reapproximated with 3 stitches using 0 Ethibond suture leaving a small opening between the esophagus and the crural closure to avoid too much tension to the esophagus. Once this was done, a 56-Ind[place]ian bougie was passed down and went down smoothly into the lesser curvature. Then, the fundus was passed behind the esophagus to create a partial wrap (Toupet). The fundus was passed in such a way that to avoid any twisting or taking of the stomach body. Once the fundus was passed behind the stomach and ensured that it was not twisted and no part of the stomach body was included, we proceeded with placement of stitches. 0 Ethibond stitches were used to secure the fundus. For the first stitch, fundus was secured to the esophagus as well as to the left anterior jose and the next 2 stitches were secured between the stomach fundus and a small bite of the esophagus. This was done bilaterally completing a Toupet fundoplication. Once this was done and seemed to be sitting well. Of note, there was a small fundic hematoma on the left side that resulted from stitch placement through the stomach wall. At this point, the bougie was removed. The crura closure as well as the fundoplication appeared to be intact. We proceeded with esophagogastroduodenoscopy. Scope was brought into the room, and I performed esophagogastroduodenoscopy looking at the esophagus, stomach as well as the distal duodenum. There were no lesions. On retroflexion, the fundoplication appeared to be sitting well, and we performed an air leak test that did not reveal any bubbles to indicate any leakage. Once this was done, the stomach was suctioned, and the endoscopy was removed. Any saline was suctioned from the abdomen. Any clots were removed, and we turned our attention to the closure of the 12 mm trocar site. The supraumbilical trocar site was closed at the fascial level with 0 Vicryl stitches. The left upper quadrant 12 mm trocar site was also closed at the fascial level with 0 Vicryl stitches, and then the liver retractor was removed. The liver appeared to be normal. The rest of the abdomen appeared to be normal on inspection. Then, we injected 20 mL of 0.25% bupivacaine in the transversus abdominis plane bilaterally, and once this was done, the abdomen was desufflated, laparoscope removed, and trocars were removed. This marked the end of the procedure. At the end of procedure, all instruments, sharps, and sponges were counted and found to be correct x2. The patient was awakened from general anesthesia and taken to the PACU in stable condition. The patient will stay in the hospital overnight and go home tomorrow if he tolerates diet and able to have pain controlled with oral medications. ANSHUL /[id number] MOMO
[2019-04-16] MEDS: Acetaminophen 325 MG Tab PO SCH (21:11)
[2019-04-16] MEDS: Ondansetron 4 MG Tab.DIS PO SCH (21:13)
[2019-04-17] MEDS ORDERED: Lactated Ringers 1,000 ML IV SCH (01:00)
[2019-04-17] MEDS: Acetaminophen 325 MG Tab PO SCH ×3 (03:31→15:40)
[2019-04-17] MEDS: Ondansetron 4 MG Tab.DIS PO SCH ×3 (03:32→15:40)
--- NOTE | 2019-04-17 07:35 | PCM.SURGPN ---
- General Info Date of Service: 04/17/19 POD#: 1 Admission Diagnosis/Problem: Hiatal hernia Functional Status: Reports: Tolerating Diet, Ambulating Pain Score: 4 - Review of Systems General: Reports: No Symptoms HEENT: Reports: No Symptoms Pulmonary: Reports: No Symptoms Cardiovascular: Reports: No Symptoms Gastrointestinal: Reports: No Symptoms Genitourinary: Reports: No Symptoms Musculoskeletal: Reports: No Symptoms Skin: Reports: No Symptoms Neurological: Reports: No Symptoms Psychiatric: Reports: No Symptoms - Patient Data Vitals - Most Recent: Last Vital Signs Temp 98.4 F 04/17/19 03:36 Pulse 79 04/17/19 03:36 Resp 18 04/17/19 03:36 BP 124/67 04/17/19 03:36 Pulse Ox 98 04/17/19 03:36 Weight - Most Recent: 73.21 kg I&O - Last 24 Hours: Intake & Output 04/16/19 04/17/19 04/17/19 22:59 06:59 14:59 Intake Total 300 1125 Output Total 70 450 Balance 230 675 Lab Results Last 24 Hrs: Laboratory Results - last 24 hr 04/17/19 04/17/19 Range/Units 04:49 04:49 WBC 9.11 H (4.23-9.07) K/mm3 RBC 4.28 L (4.63-6.08) M/mm3 Hgb 12.6 L D (13.7-17.5) gm/dl Hct 37.1 L (40.1-51.0) % MCV 86.7 D (79.0-92.2) fl MCH 29.4 (25.7-32.2) pg MCHC 34.0 (32.2-35.5) g/dl RDW Std Deviation 43.5 (35.1-43.9) fL Plt Count 156 L D (163-337) K/mm3 MPV 10.5 (9.4-12.3) fl Sodium 138 (136-145) mEq/L Potassium 4.0 (3.5-5.1) mEq/L Chloride 103 (98-107) mEq/L Carbon Dioxide 26 (21-32) mEq/L Anion Gap 13.0 (5-15) BUN 20 H (7-18) mg/dL Creatinine 1.3 (0.7-1.3) mg/dL Est Cr Clr Drug Dosing 48.02 mL/min Estimated GFR (MDRD) 56 (>60) mL/min BUN/Creatinine Ratio 15.4 (14-18) Glucose 110 (80-115) mg/dL Calcium 7.9 L (8.5-10.1) mg/dL Med Orders - Current: Current Medications Acetaminophen (Tylenol) 650 mg PO Q6H [facility] Last Admin: 04/17/19 03:31 Dose: 650 mg Hydrocodone Bitart/Acetaminophen ([place] 325-5 Mg) 1 - 2 tab PO Q4H PRN PRN Reason: Pain (moderate 4-6) Last Admin: 04/16/19 21:22 Dose: 1 tab Hydroxyzine HCl (Vistaril) 50 mg IM Q4H PRN PRN Reason: Itching Lactated Ringer's (Ringers, Lactated) 1,000 mls @ 125 mls/hr IV ASDIRECTED [facility] Stop: 04/17/19 17:00 Last Admin: 04/17/19 01:19 Dose: 125 mls/hr Morphine Sulfate (Morphine) 4 mg IVPUSH Q4H PRN PRN Reason: Pain (severe 7-10) Stop: 04/17/19 17:32 Ondansetron HCl (Zofran Odt) 4 mg PO Q6H [facility] Last Admin: 04/17/19 03:32 Dose: 4 mg Promethazine HCl (Phenergan) 12.5 mg IM Q6H PRN PRN Reason: Nausea Discontinued Medications Acetaminophen (Tylenol) 650 mg PO Q6H [facility] Last Admin: 04/16/19 19:47 Dose: Not Given Bupivacaine HCl (Sensorcaine-Mpf 0.25%) Confirm Administered Dose 20 ml .ROUTE .STK-MED ONE Stop: 04/16/19 16:10 Cefazolin Sodium (Ancef) Confirm Administered Dose 2 gm .ROUTE .STK-MED ONE Stop: 04/16/19 08:56 Cefazolin Sodium (Ancef) Confirm Administered Dose 2 gm .ROUTE .STK-MED ONE Stop: 04/16/19 13:39 Fentanyl (Sublimaze) Confirm Administered Dose 250 mcg .ROUTE .STK-MED ONE Stop: 04/16/19 08:38 Fentanyl (Sublimaze) 100 mcg IVPUSH Q5M PRN PRN Reason: Pain Stop: 04/16/19 18:30 Last Admin: 04/16/19 17:18 Dose: 50 mcg Hydromorphone HCl (Dilaudid) Confirm Administered Dose 0.5 mg .ROUTE .STK-MED ONE Stop: 04/16/19 12:32 Hydromorphone HCl (Dilaudid) Confirm Administered Dose 0.5 mg .ROUTE .STK-MED ONE Stop: 04/16/19 15:05 Hydromorphone HCl (Dilaudid) Confirm Administered Dose 0.5 mg .ROUTE .STK-MED ONE Stop: 04/16/19 15:38 Hydromorphone HCl (Dilaudid) 0.5 mg IVPUSH Q10M PRN PRN Reason: Pain (severe 7-10) Stop: 04/16/19 18:30 Last Admin: 04/16/19 16:58 Dose: 0.5 mg Lactated Ringer's (Ringers, Lactated) 1,000 mls @ 125 mls/hr IV ASDIRECTED [facility] Stop: 04/16/19 23:00 Last Admin: 04/16/19 08:00 Dose: 125 mls/hr Lidocaine HCl (Xylocaine-Mpf 1%) Confirm Administered Dose 4 mls @ as directed .ROUTE .STK-MED ONE Stop: 04/16/19 08:37 Lactated Ringer's (Ringers, Lactated) Confirm Administered Dose 1,000 mls @ as directed .ROUTE .STK-MED ONE Stop: 04/16/19 10:02 Lactated Ringer's (Ringers, Lactated) Confirm Administered Dose 1,000 mls @ as directed .ROUTE .STK-MED ONE Stop: 04/16/19 12:15 Lactated Ringer's (Ringers, Lactated) Confirm Administered Dose 1,000 mls @ as directed .ROUTE .STK-MED ONE Stop: 04/16/19 15:04 Lidocaine HCl (Xylocaine 1%) Confirm Administered Dose 50 ml .ROUTE .STK-MED ONE Stop: 04/16/19 08:42 Last Admin: 04/16/19 10:52 Dose: 38 ml Lidocaine/Sodium Bicarbonate (Buffered Lidocaine 1% In Ns 8.4%) 0.25 ml IDERM ONETIME PRN PRN Reason: Prior to IV Start Stop: 04/16/19 23:00 Last Admin: 04/16/19 07:59 Dose: 0.25 ml Midazolam HCl (Versed 1 Mg/Ml) Confirm Administered Dose 2 mg .ROUTE .STK-MED ONE Stop: 04/16/19 08:37 Ondansetron HCl (Zofran) Confirm Administered Dose 4 mg .ROUTE .STK-MED ONE Stop: 04/16/19 08:37 Ondansetron HCl (Zofran) Confirm Administered Dose 4 mg .ROUTE .STK-MED ONE Stop: 04/16/19 13:45 Ondansetron HCl (Zofran) 4 mg IVPUSH ONETIME PRN PRN Reason: Nausea/Vomiting Stop: 04/16/19 18:30 Ondansetron HCl (Zofran) Confirm Administered Dose 4 mg .ROUTE .STK-MED ONE Stop: 04/16/19 16:22 Ondansetron HCl (Zofran Odt) 4 mg PO Q6H [facility] Last Admin: 04/16/19 19:47 Dose: Not Given Phenylephrine HCl (Phenylephrine In Ns 100 Mcg/Ml) Confirm Administered Dose 1 mg .ROUTE .STK-MED ONE Stop: 04/16/19 12:18 Propofol (Diprivan 20 Ml) Confirm Administered Dose 200 mg .ROUTE .STK-MED ONE Stop: 04/16/19 08:37 Rocuronium [place] (Zemuron) Confirm Administered Dose 50 mg .ROUTE .STK-MED ONE Stop: 04/16/19 08:37 Rocuronium [place] (Zemuron) Confirm Administered Dose 50 mg .ROUTE .STK-MED ONE Stop: 04/16/19 13:15 Sodium Chloride (Saline Flush) 10 ml FLUSH ASDIRECTED PRN PRN Reason: Keep Vein Open Stop: 04/16/19 23:00 Succinylcholine Chloride (Succinylcholine In Ns Pf) Confirm Administered Dose 200 mg .ROUTE .STK-MED ONE Stop: 04/16/19 09:59 - Exam Wound/Incisions: Healing Well, Dressing Dry and Intact, No Drainage General: Alert, Oriented, Cooperative, No Acute Distress HEENT: Pupils Equal Cardiovascular: Regular Rate, Regular Rhythm, No Murmurs GI/Abdominal Exam: Normal Bowel Sounds, Soft, No Mass, Distended (slightly), Tender (appropriately) Extremities: Normal Inspection Skin: Warm, Dry, Intact Sepsis Event Note - Evaluation Sepsis Screening Result: No Definite Risk - Focused Exam Vital Signs: Vital Signs Temp Pulse Resp BP Pulse Ox 04/17/19 03:36 98.4 F 79 18 124/67 98 04/17/19 00:00 98.8 F 91 20 117/66 97 04/16/19 23:28 98.8 F 97 16 116/68 95 04/16/19 21:10 98.2 F 101 H 20 98 04/16/19 21:00 134/72 04/16/19 20:30 125/72 04/16/19 20:00 139/79 Date Exam was Performed: 04/17/19 Time Exam was Performed: 07:30 - Problem List Review Problem List Initiated/Reviewed/Updated: No - My Orders Last 24 Hours: Active Orders 24 hr Category Date Time Status Patient Status [ADT] Routine ADT 04/16/19 17:46 Active Ambulate [RC] ,, Care 04/16/19 17:46 Active Antiembolic Devices [RC] BID Care 04/17/19 02:09 Active Communication Order [RC] ASDIRECTED Care 04/16/19 16:01 Inactive Cooling Warming Measures [RC] ASDIRECTED Care 04/16/19 16:01 Inactive Head of Bed Elevation [RC] BID Care 04/16/19 17:46 Active Insert [place] Catheter [Insert Urinary Catheter] [OM.PC] Care 04/16/19 10:04 Ordered Q24H Intake and Output [RC] 04,16 Care 04/16/19 17:46 Active Oxygen Therapy [RC] ASDIRECTED Care 04/16/19 16:01 Inactive Oxygen Therapy [RC] PRN Care 04/16/19 17:46 Active Peripheral IV Care [RC] . DIRECTED Care 04/16/19 07:00 Inactive Pulse Oximetry [RC] ASDIRECTED Care 04/16/19 16:01 Inactive RT Incentive Spirometry [RC] Q1HWA Care 04/16/19 17:46 Active Up With Assistance [RC] BID Care 04/16/19 17:46 Active Up ad [place] [RC] BID Care 04/16/19 17:46 Active Up to Chair [RC] ,15,20 Care 04/16/19 17:46 Active Urinary Catheter Assessment [RC] ASDIRECTED Care 04/16/19 11:43 Inactive Urinary Catheter Removal [RC] 0700 Care 04/16/19 17:46 Inactive VTE/DVT Education [RC] DAILY Care 04/16/19 17:46 Active Verify Patient Consent Obtain [RC] ASDIRECTED Care 04/16/19 07:00 Inactive Vital Signs [RC] Q15M Care 04/16/19 16:01 Inactive Vital Signs [RC] Q4HR Care 04/16/19 17:46 Active Full Liquid Diet [DIET] Diet 04/16/19 Breakfast Active Acetaminophen [Tylenol] Med 04/16/19 21:00 Active 650 mg PO Q6H Acetaminophen/HYDROcodone [[place] 325-5 MG] Med 04/16/19 17:46 Active 1 - 2 tab PO Q4H PRN Lactated Ringers [Ringers, Lactated] 1,000 ml Med 04/17/19 01:00 Active IV ASDIRECTED Morphine Sulfate [Morphine] Med 04/16/19 17:46 Active 4 mg IVPUSH Q4H PRN Ondansetron [Zofran ODT] Med 04/16/19 21:00 Active 4 mg PO Q6H Promethazine [Phenergan] Med 04/16/19 17:46 Active 12.5 mg IM Q6H PRN hydrOXYzine HCL [Vistaril] Med 04/16/19 17:46 Active 50 mg IM Q4H PRN Abdominal Binder [OM.PC] Per Unit Routine Oth 04/16/19 17:46 Ordered DVT/VTE Prophylaxis Reflex [OM.PC] Routine Oth 04/16/19 17:46 Ordered Pulse Oximetry Continuous Monitoring [OM.PC] Routine Oth 04/16/19 17:55 Active SCD [Sequential Compression Device] [OM.PC] Routine Oth 04/17/19 02:08 Ordered Resuscitation Status Routine Resus Stat 04/16/19 17:23 Ordered Medication Orders Acetaminophen (Tylenol) 650 mg PO Q6H [facility] Last Admin: 04/17/19 03:31 Dose: 650 mg Admin: 04/16/19 21:11 Dose: 650 mg Hydrocodone Bitart/Acetaminophen ([place] 325-5 Mg) 1 - 2 tab PO Q4H PRN PRN Reason: Pain (moderate 4-6) Last Admin: 04/16/19 21:22 Dose: 1 tab Hydroxyzine HCl (Vistaril) 50 mg IM Q4H PRN PRN Reason: Itching Lactated Ringer's (Ringers, Lactated) 1,000 mls @ 125 mls/hr IV ASDIRECTED [facility] Stop: 04/17/19 17:00 Last Admin: 04/17/19 01:19 Dose: 125 mls/hr Morphine Sulfate (Morphine) 4 mg IVPUSH Q4H PRN PRN Reason: Pain (severe 7-10) Stop: 04/17/19 17:32 Ondansetron HCl (Zofran Odt) 4 mg PO Q6H [facility] Last Admin: 04/17/19 03:32 Dose: 4 mg Admin: 04/16/19 21:13 Dose: 4 mg Promethazine HCl (Phenergan) 12.5 mg IM Q6H PRN PRN Reason: Nausea - Assessment Assessment (Free Text/Narrative):: POD1 Hiatal hernia repair. Progressing well. Pain and nausea are controlled. He ambulated overnight. Needs to void and wean off oxygen. - Plan Plan (Free Text/Narrative):: - wean oxygen - dc IVF - wait for spontaneous void - continue Full liquid diet. The patient will be discharged on a Full liquid diet for 1 wk. - continue pain control
--- NOTE | 2019-04-17 11:55 | PCM48HPAN ---
Post Anesthesia Note - EVALUATION WITHIN 48HRS OF ANESTHETIC Vital Signs in Normal Range: Yes Patient Participated in Evaluation: Yes Respiratory Function Stable: Yes Airway Patent: Yes Cardiovascular Function Stable: Yes Hydration Status Stable: Yes Pain Control Satisfactory: Yes Nausea and Vomiting Control Satisfactory: Yes Mental Status Recovered: Yes Vital Signs: Last Vital Signs Temp 36.8 C 04/17/19 11:21 Pulse 90 04/17/19 11:21 Resp 20 04/17/19 11:21 BP 146/89 H 04/17/19 11:21 Pulse Ox 94 L 04/17/19 11:21
[2019-04-17 15:08] VITALS: BP 144/77; PULSE 88
--- NOTE | 2019-04-18 08:15 | PCM.DCSUM1 ---
Discharge Summary - Hospital Course Free Text/Narrative:: Mr. Argueta underwent laparoscopic hiatal hernia repair with Toupet fundoplication on 04/16/2019. The patient progressed well post operatively. He tolerated liquid diet, was able to ambulate, voided spontaneously and pain was controlled with oral medications. The patient was discharged home on 04/17/2019 in stable condition. He will follow up with me in clinic in 2 weeks. Diagnosis: Stroke: No - Discharge Data Discharge Date: 04/17/19 Discharge Disposition: Home, Self-Care 01 Condition: Good - Referral to Home Health Primary Care Physician: Viet Quinones MD - Patient Summary/Data Operative Procedure(s) Performed: Hiatal hernia repair with fudoplication Complications: None Hospital Course: Progressed well post op. - Patient Instructions Diet: Full Liquid Diet Activity: No Lifting Over 10 Pounds Driving: Do Not Drive Showering/Bathing: No Tub Bathing/Swimming Wound/Incision Care: Keep Operative Site/Wound Site Clean and Dry Notify Provider of: Fever, Increased Pain, Swelling and Redness, Drainage, Nausea and/or Vomiting - Discharge Plan *PRESCRIPTION DRUG MONITORING PROGRAM REVIEWED*: No *COPY OF PRESCRIPTION DRUG MONITORING REPORT IN PATIENT LIANA: No Prescriptions/Med Rec: Docusate Sodium [Colace] 100 mg PO BID #30 capsule Hydrocodone/Acetaminophen [[place] 5-325 Tablet] 1 - 2 tab PO Q6H PRN #20 tablet PRN Reason: Pain Ondansetron [Zofran ODT] 4 mg PO Q4H PRN #30 tab.dis PRN Reason: Nausea Home Medications: Home Meds Aspirin [Ecotrin EC] 81 mg PO DAILY 07/17/13 [History] Losartan [Cozaar] 50 mg PO DAILY 07/17/13 [History] Acetaminophen [Tylenol] 1,500 - 2,000 mg PO DAILY PRN 04/15/19 [History] Multivitamin [Multi-Vitamin Daily] 1 tab PO DAILY 04/15/19 [History] Docusate Sodium [Colace] 100 mg PO BID #30 capsule 04/17/19 [Rx] Finasteride 5 mg PO DAILY 04/17/19 [History] Hydrocodone/Acetaminophen [[place] 5-325 Tablet] 1 - 2 tab PO Q6H PRN #20 tablet 04/17/19 [Rx] Ondansetron [Zofran ODT] 4 mg PO Q4H PRN #30 tab.dis 04/17/19 [Rx] Tamsulosin HCl [Flomax] 0.8 mg PO DAILY 04/17/19 [History] Oxygen Therapy Mode: Room Air Patient Handouts: Hernia, Adult, [id number], Full Liquid Diet, Laparoscopic Vicki Fundoplication, Care After Referrals: Viet Quinones MD [Primary Care Provider] - (Please schedule a hospital follow up with Dr. Quinones for 2 weeks. Please call [phone] and select the option for general surgery.) - Discharge Summary/Plan Comment DC Time >30 min.: Yes (Education and instructions.) - Patient Data Vitals - Most Recent: Last Vital Signs Temp 99.1 F 04/17/19 14:58 Pulse 88 04/17/19 14:58 Resp 20 04/17/19 14:58 BP 144/77 H 04/17/19 14:58 Pulse Ox 92 L 04/17/19 14:58 Weight - Most Recent: 73.21 kg I&O - Last 24 hours: Intake & Output 04/17/19 04/18/19 04/18/19 22:59 06:59 14:59 Intake Total 400 Output Total 600 Balance -200 Med Orders - Current: Current Medications Discontinued Medications Acetaminophen (Tylenol) 650 mg PO Q6H [facility] Last Admin: 04/16/19 19:47 Dose: Not Given Acetaminophen (Tylenol) 650 mg PO Q6H [facility] Last Admin: 04/17/19 15:40 Dose: 650 mg Hydrocodone Bitart/Acetaminophen ([place] 325-5 Mg) 1 - 2 tab PO Q4H PRN PRN Reason: Pain (moderate 4-6) Last Admin: 04/16/19 21:22 Dose: 1 tab Bupivacaine HCl (Sensorcaine-Mpf 0.25%) Confirm Administered Dose 20 ml .ROUTE .STK-MED ONE Stop: 04/16/19 16:10 Last Admin: 04/16/19 16:05 Dose: 20 ml Cefazolin Sodium (Ancef) Confirm Administered Dose 2 gm .ROUTE .STK-MED ONE Stop: 04/16/19 08:56 Cefazolin Sodium (Ancef) Confirm Administered Dose 2 gm .ROUTE .STK-MED ONE Stop: 04/16/19 13:39 Fentanyl (Sublimaze) Confirm Administered Dose 250 mcg .ROUTE .STK-MED ONE Stop: 04/16/19 08:38 Fentanyl (Sublimaze) 100 mcg IVPUSH Q5M PRN PRN Reason: Pain Stop: 04/16/19 18:30 Last Admin: 04/16/19 17:18 Dose: 50 mcg Hydromorphone HCl (Dilaudid) Confirm Administered Dose 0.5 mg .ROUTE .STK-MED ONE Stop: 04/16/19 12:32 Hydromorphone HCl (Dilaudid) Confirm Administered Dose 0.5 mg .ROUTE .STK-MED ONE Stop: 04/16/19 15:05 Hydromorphone HCl (Dilaudid) Confirm Administered Dose 0.5 mg .ROUTE .STK-MED ONE Stop: 04/16/19 15:38 Hydromorphone HCl (Dilaudid) 0.5 mg IVPUSH Q10M PRN PRN Reason: Pain (severe 7-10) Stop: 04/16/19 18:30 Last Admin: 04/16/19 16:58 Dose: 0.5 mg Hydroxyzine HCl (Vistaril) 50 mg IM Q4H PRN PRN Reason: Itching Lactated Ringer's (Ringers, Lactated) 1,000 mls @ 125 mls/hr IV ASDIRECTED [facility] Stop: 04/16/19 23:00 Last Admin: 04/16/19 08:00 Dose: 125 mls/hr Lidocaine HCl (Xylocaine-Mpf 1%) Confirm Administered Dose 4 mls @ as directed .ROUTE .STK-MED ONE Stop: 04/16/19 08:37 Lactated Ringer's (Ringers, Lactated) Confirm Administered Dose 1,000 mls @ as directed .ROUTE .STK-MED ONE Stop: 04/16/19 10:02 Lactated Ringer's (Ringers, Lactated) Confirm Administered Dose 1,000 mls @ as directed .ROUTE .STK-MED ONE Stop: 04/16/19 12:15 Lactated Ringer's (Ringers, Lactated) Confirm Administered Dose 1,000 mls @ as directed .ROUTE .STK-MED ONE Stop: 04/16/19 15:04 Lactated Ringer's (Ringers, Lactated) 1,000 mls @ 125 mls/hr IV ASDIRECTED [facility] Stop: 04/17/19 17:00 Last Admin: 04/17/19 01:19 Dose: 125 mls/hr Lidocaine HCl (Xylocaine 1%) Confirm Administered Dose 50 ml .ROUTE .STK-MED ONE Stop: 04/16/19 08:42 Last Admin: 04/16/19 10:52 Dose: 38 ml Lidocaine/Sodium Bicarbonate (Buffered Lidocaine 1% In Ns 8.4%) 0.25 ml IDERM ONETIME PRN PRN Reason: Prior to IV Start Stop: 04/16/19 23:00 Last Admin: 04/16/19 07:59 Dose: 0.25 ml Midazolam HCl (Versed 1 Mg/Ml) Confirm Administered Dose 2 mg .ROUTE .STK-MED ONE Stop: 04/16/19 08:37 Morphine Sulfate (Morphine) 4 mg IVPUSH Q4H PRN PRN Reason: Pain (severe 7-10) Stop: 04/17/19 17:32 Ondansetron HCl (Zofran) Confirm Administered Dose 4 mg .ROUTE .STK-MED ONE Stop: 04/16/19 08:37 Ondansetron HCl (Zofran) Confirm Administered Dose 4 mg .ROUTE .STK-MED ONE Stop: 04/16/19 13:45 Ondansetron HCl (Zofran) 4 mg IVPUSH ONETIME PRN PRN Reason: Nausea/Vomiting Stop: 04/16/19 18:30 Ondansetron HCl (Zofran) Confirm Administered Dose 4 mg .ROUTE .STK-MED ONE Stop: 04/16/19 16:22 Ondansetron HCl (Zofran Odt) 4 mg PO Q6H [facility] Last Admin: 04/16/19 19:47 Dose: Not Given Ondansetron HCl (Zofran Odt) 4 mg PO Q6H [facility] Last Admin: 04/17/19 15:40 Dose: 4 mg Phenylephrine HCl (Phenylephrine In Ns 100 Mcg/Ml) Confirm Administered Dose 1 mg .ROUTE .STK-MED ONE Stop: 04/16/19 12:18 Promethazine HCl (Phenergan) 12.5 mg IM Q6H PRN PRN Reason: Nausea Propofol (Diprivan 20 Ml) Confirm Administered Dose 200 mg .ROUTE .STK-MED ONE Stop: 04/16/19 08:37 Rocuronium [place] (Zemuron) Confirm Administered Dose 50 mg .ROUTE .STK-MED ONE Stop: 04/16/19 08:37 Rocuronium [place] (Zemuron) Confirm Administered Dose 50 mg .ROUTE .STK-MED ONE Stop: 04/16/19 13:15 Sodium Chloride (Saline Flush) 10 ml FLUSH ASDIRECTED PRN PRN Reason: Keep Vein Open Stop: 04/16/19 23:00 Succinylcholine Chloride (Succinylcholine In Ns Pf) Confirm Administered Dose 200 mg .ROUTE .STK-MED ONE Stop: 04/16/19 09:59
== END 2019-04-17 18:32 | disposition home or self-care (01) | DRG 328 ==
LOC: JD.MS 07:36
PROVIDERS: ADMIT Surgery; ATTEND Surgery
PROC: 0DV44ZZ Restriction of Esophagogastric Junction, Percutaneous Endoscopic Approach (ICD-10-PCS; principal; 2019-04-16)
PROC: 0BQT4ZZ Repair Diaphragm, Percutaneous Endoscopic Approach (ICD-10-PCS; 2019-04-16)
PROC: 0DJ08ZZ Inspection of Upper Intestinal Tract, Via Natural or Artificial Opening Endoscopic (ICD-10-PCS; 2019-04-16)
DX: K44.9 Diaphragmatic hernia without obstruction or gangrene (principal); N40.0 Benign prostatic hyperplasia without lower urinary tract symptoms; I10 Essential (primary) hypertension; K21.9 Gastro-esophageal reflux disease without esophagitis; G47.30 Sleep apnea, unspecified; Z86.73 Personal history of transient ischemic attack (TIA), and cerebral infarction without residual deficits; Z90.49 Acquired absence of other specified parts of digestive tract; Z79.82 Long term (current) use of aspirin; Z79.899 Other long term (current) drug therapy
CPT/HCPCS: 00790; 36415; 80048; 85027; 94762; A9270-GY; J0330; J0690; J1170; J2001; J2250; J2370; J2405; J2704; J3010; J3490; J7120

== ENCOUNTER 2019-11-04 10:49 | Emergency (ER) | payer MEDICAID ==
[2019-11-04 11:03] VITALS: BP 134/82; PULSE 79
--- NOTE | 2019-11-04 11:28 | EDM.PDOC ---
ED HPI GENERAL MEDICAL PROBLEM - General Chief Complaint: ENT Problem Stated Complaint: DENTAL COMPLAINT Time Seen by Provider: 11/04/19 11:04 Source of Information: Reports: Patient History Limitations: Reports: No Limitations - History of Present Illness INITIAL COMMENTS - FREE TEXT/NARRATIVE: Patient is a 59 year old male who presents to the ER with c/o swelling and redness of his upper anterior gums and bleeding with brushing. He states this has been occuring for aproximately 2 weeks. He called a dentist today and has an appointment scheduled for November 13. He was advised by the dentists office to come to ER for exam and antibiotic therapy if indicated. He denies and fever, chills, nausea, or vomiting. Left Upper Tooth/Teeth Pain Score (Numeric/FACES): 4 - Related Data Allergies Allergy/AdvReac Type Severity Reaction Status Date / Time No Known Allergies Allergy Verified 11/04/19 11:03 Home Meds: Home Meds Aspirin [Ecotrin EC] 81 mg PO DAILY 07/17/13 [History] Losartan [Cozaar] 50 mg PO DAILY 07/17/13 [History] Multivitamin [Multi-Vitamin Daily] 1 tab PO DAILY 04/15/19 [History] Finasteride 5 mg PO DAILY 04/17/19 [History] Tamsulosin HCl [Flomax] 0.8 mg PO DAILY 04/17/19 [History] Amoxicillin/Clavulanate K [Augmentin 875-125 MG] 1 tab PO BID 10 Days #20 tablet 11/04/19 [Rx] Past Medical History HEENT History: Reports: Impaired Vision Other HEENT History: wears glasses Cardiovascular History: Reports: Hypertension Respiratory History: Reports: None Gastrointestinal History: Reports: Colon Polyp, GERD, Hiatal Hernia Genitourinary History: Reports: BPH, Other (See Below) Other Genitourinary History: urinary retention [employer] History: Reports: None Musculoskeletal History: Reports: Other (See Below) Other Musculoskeletal History: degenerative TFCC tear, distal radioulnar joint instability Neurological History: Reports: Other (See Below) Other Neuro History: hemifacial spasms Psychiatric History: Reports: None Endocrine/Metabolic History: Reports: None Hematologic History: Reports: None Immunologic History: Reports: None Oncologic (Cancer) History: Reports: None Dermatologic History: Reports: None - Infectious Disease History Infectious Disease History: Reports: None - Past Surgical History Head Surgeries/Procedures: Reports: None HEENT Surgical History: Reports: Eye Surgery, Other (See Below) Other HEENT Surgeries/Procedures: esophageal surgery Cardiovascular Surgical History: Reports: None Respiratory Surgical History: Reports: None GI Surgical History: Reports: Appendectomy, Colonoscopy, EGD Male Surgical History: Reports: None Endocrine Surgical History: Reports: None Neurological Surgical History: Reports: None Musculoskeletal Surgical History: Reports: Arthroscopic Knee, Carpal Tunnel Oncologic Surgical History: Reports: None Dermatological Surgical History: Reports: None Social & Family History - Family History Family Medical History: Noncontributory - Tobacco Use Smoking Status *Q: Never Smoker Second Hand Smoke Exposure: No - Caffeine Use Caffeine Use: Reports: None - Recreational Drug Use Recreational Drug Use: No - Living Situation & Occupation Living situation: Reports: Alone, 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 ED EXAM, ENT - Physical Exam Exam: See Below Exam Limited By: No Limitations General Appearance: Alert, WD/WN, No Apparent Distress Mouth/Throat: Normal Oropharynx, Gum Swelling (anterior upper/ mild), Other (generalized redness of anterior upper gums. No visible abcess or drainage.) Neck: Normal Inspection, Supple, Non-Tender, Full Range of Motion. No: Lymphadenopathy (L), Lymphadenopathy (R) Respiratory/Chest: No Respiratory Distress, Lungs Clear, Normal Breath Sounds, No Accessory Muscle Use, Chest Non-Tender Cardiovascular: Normal Peripheral Pulses, Regular Rate, Rhythm, No Edema, No Gallop, No JVD, No Murmur, No Rub Neurological: Alert, Oriented, CN II-XII Intact, Normal Cognition, Normal Gait, Normal Reflexes, No Motor/Sensory Deficits Psychiatric: Normal Affect, Normal Mood Skin: Warm, Dry, Intact, Normal Color, No Rash Course - Vital Signs Last Recorded V/S: Last Vital Signs Temp 97.4 F 11/04/19 11:00 Pulse 79 11/04/19 11:00 Resp 16 11/04/19 11:00 BP 134/82 11/04/19 11:00 Pulse Ox 99 11/04/19 11:00 - Re-Assessments/Exams Free Text/Narrative Re-Assessment/Exam: 11/04/19 11:27 on exam, pt has redness and mild swelling of his anterior upper gums. I will start him on a course of augmentin for treatment of gingivitis. Departure - Departure Time of Disposition: 11:28 Disposition: Home, Self-Care 01 Condition: Good Clinical Impression: Gingivitis - Discharge Information *PRESCRIPTION DRUG MONITORING PROGRAM REVIEWED*: No *COPY OF PRESCRIPTION DRUG MONITORING REPORT IN PATIENT LIANA: No Prescriptions: Amoxicillin/Clavulanate K [Augmentin 875-125 MG] 1 tab PO BID 10 Days #20 tablet Referrals: Georgie Bender NP [Primary Care Provider] - Additional Instructions: You were seen in the emergency department for redness, swelling, and pain to your upper gums. A prescription for Augmentin has been sent to [facility]. Take this medication as prescribed in it's entirety. You may use over the counter tylenol or ibuprofen as needed for pain. Keep your appointment with your dentist as scheduled. Return to ER for worsening symptoms. Sepsis Event Note (ED) - Evaluation Sepsis Screening Result: No Definite Risk - Focused Exam Vital Signs: Vital Signs Temp Pulse Resp BP Pulse Ox 11/04/19 11:00 97.4 F 79 16 134/82 99
== END 2019-11-04 11:30 | disposition home or self-care (01) ==
LOC: JD.ED 10:49
DX: K05.10 Chronic gingivitis, plaque induced (principal); I10 Essential (primary) hypertension; Z79.82 Long term (current) use of aspirin; Z79.899 Other long term (current) drug therapy
CPT/HCPCS: 99282; 99283

== ENCOUNTER 2020-01-19 14:19 | Emergency (ER) | payer MEDICAID ==
[2020-01-19 14:40] VITALS: BP 124/90; PULSE 88
[2020-01-19] MEDS ORDERED: Ketorolac 30 MG/ML SDV IM ONE (16:30)
[2020-01-19] MEDS ORDERED: Orphenadrine 100 MG Tab.ER PO ONE (16:30)
--- NOTE | 2020-01-19 16:38 | EDM.PDOC ---
ED HPI GENERAL MEDICAL PROBLEM - General Chief Complaint: Back Pain or Injury Stated Complaint: BACK PAIN Time Seen by Provider: 01/19/20 16:20 Source of Information: Reports: Patient, RN Notes Reviewed History Limitations: Reports: No Limitations - History of Present Illness INITIAL COMMENTS - FREE TEXT/NARRATIVE: Patient is a 59-year-old male who presents to the ED for his low back pain. He notes that he woke up yesterday morning with left low back pain, that seems to radiate down into his butt cheek and into his groin. He states that is been getting worse over the past few days. He denies any recent injury or trauma, he did try Tylenol yesterday, and this did not help much at all. He states that he has had no urinary symptoms, blood in his urine, had a normal BM for himself this morning. He denies any other further sick-like symptoms, fever/chills, cough or shortness of breath, nausea/vomiting/diarrhea. He denies any numbness or tingling into his toes Left Lower Back Pain Score (Numeric/FACES): 7 - Related Data Allergies Allergy/AdvReac Type Severity Reaction Status Date / Time No Known Allergies Allergy Verified 01/19/20 14:40 Home Meds: Home Meds Aspirin [Ecotrin EC] 81 mg PO DAILY 07/17/13 [History] Losartan [Cozaar] 50 mg PO DAILY 07/17/13 [History] Multivitamin [Multi-Vitamin Daily] 1 tab PO DAILY 04/15/19 [History] Finasteride 5 mg PO DAILY 04/17/19 [History] Tamsulosin HCl [Flomax] 0.8 mg PO DAILY 04/17/19 [History] Acetaminophen/HYDROcodone [[place] 325-5 MG] 1 tab PO Q6H PRN #6 tablet 01/19/20 [Rx] predniSONE 20 mg PO ASDIRECTED #15 tab 01/19/20 [Rx] Past Medical History HEENT History: Reports: Impaired Vision Other HEENT History: wears glasses Cardiovascular History: Reports: Hypertension Respiratory History: Reports: None Gastrointestinal History: Reports: Colon Polyp, GERD, Hiatal Hernia Genitourinary History: Reports: BPH, Other (See Below) Other Genitourinary History: urinary retention 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 Musculoskeletal History: Reports: Other (See Below) Other Musculoskeletal History: degenerative TFCC tear, distal radioulnar joint instability Neurological History: Reports: Other (See Below) Other Neuro History: hemifacial spasms Psychiatric History: Reports: None Endocrine/Metabolic History: Reports: None Hematologic History: Reports: None Immunologic History: Reports: None Oncologic (Cancer) History: Reports: None Dermatologic History: Reports: None - Infectious Disease History Infectious Disease History: Reports: None - Past Surgical History Head Surgeries/Procedures: Reports: None HEENT Surgical History: Reports: Eye Surgery, Other (See Below) Other HEENT Surgeries/Procedures: esophageal surgery Cardiovascular Surgical History: Reports: None Respiratory Surgical History: Reports: None GI Surgical History: Reports: Appendectomy, Colonoscopy, EGD Male Surgical History: Reports: None Endocrine Surgical History: Reports: None Neurological Surgical History: Reports: None Musculoskeletal Surgical History: Reports: Arthroscopic Knee, Carpal Tunnel Oncologic Surgical History: Reports: None Dermatological Surgical History: Reports: None Social & Family History - Family History Family Medical History: No Pertinent Family History - Tobacco Use Tobacco Use Status *Q: Never Tobacco User Second Hand Smoke Exposure: No - Caffeine Use Caffeine Use: Reports: Coffee - Recreational Drug Use Recreational Drug Use: No - Living Situation & Occupation Living situation: Reports: Alone, 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 ED EXAM,LOWER BACK PAIN/INJURY - Physical Exam Exam: See Below Exam Limited By: No Limitations General Appearance: Alert, WD/WN, No Apparent Distress Respiratory/Chest: No Respiratory Distress, Lungs Clear, Normal Breath Sounds, No Accessory Muscle Use, Chest Non-Tender Cardiovascular: Normal Peripheral Pulses, Regular Rate, Rhythm, No Murmur GI/Abdominal: Normal Bowel Sounds, Soft, Non-Tender, No Distention, No Mass Back Exam: Normal Inspection. No: CVA Tenderness (L), CVA Tenderness (R) Extremities: Normal Inspection, Normal Capillary Refill Neurological: Alert, Normal Mood/Affect, Normal Dorsiflexion, Normal Plantar Flexion, No Motor/Sensory Deficits, Straight Leg Raise (L). No: Straight Leg Raise (R), Saddle Anesthesia Psychiatric: Normal Affect, Normal Mood Skin Exam: Warm, Dry, Intact, Normal Color, No Rash Course - Vital Signs Last Recorded V/S: Last Vital Signs Temp 97 F 01/19/20 14:39 Pulse 88 01/19/20 14:39 Resp 16 01/19/20 14:39 BP 124/90 01/19/20 14:39 Pulse Ox 96 01/19/20 14:39 - Orders/Labs/Meds Labs: Laboratory Tests 01/19/20 Range/Units 15:52 Urine Color Yellow (Yellow) Urine Appearance Clear (Clear) Urine pH 7.5 (5.0-8.0) Ur Specific [place] 1.020 (1.005-1.030) Urine Protein Negative (Negative) Urine Glucose (UA) Negative (Negative) Urine Ketones Negative (Negative) Urine Occult Blood Negative (Negative) Urine Nitrite Negative (Negative) Urine Bilirubin Negative (Negative) Urine Urobilinogen 0.2 (0.2-1.0) Ur Leukocyte Esterase Negative (Negative) Urine RBC 0-5 (0-5) /hpf Urine WBC 0-5 (0-5) /hpf Ur Squamous Epith Cells 0-5 (0-5) /hpf Urine Bacteria Few (FEW) /hpf Urine Mucus Few (FEW) /hpf Meds: Medications Discontinued Medications Generic Name Dose Route Start Last Admin Trade Name Freq PRN Reason Stop Dose Admin Ketorolac Tromethamine 60 mg 01/19/20 16:30 01/19/20 16:38 Toradol IM 01/19/20 16:31 60 mg ONETIME ONE Administration Orphenadrine Citrate 100 mg 01/19/20 16:30 01/19/20 16:42 Norflex PO 01/19/20 16:31 100 mg ONETIME ONE Administration - Re-Assessments/Exams Free Text/Narrative Re-Assessment/Exam: 01/19/20 16:34 Patient presents to the ED for evaluation of his low back pain. Urinalysis was obtained at time of triage, and this demonstrates no blood within the urine, which would make him suspect a kidney stone. History leg was positive, this could be more of a sciatic component in nature. We will give him a shot of Toradol and Norflex for initial management. We will try to get him home on prednisone. Departure - Departure Time of Disposition: 16:35 Disposition: Home, Self-Care 01 Condition: Good Clinical Impression: Low back pain Qualifiers: Chronicity: acute Back pain laterality: left Sciatica presence: with sciatica Sciatica laterality: sciatica of left side Qualified Code(s): M54.42 - Lumbago with sciatica, left side - Discharge Information *PRESCRIPTION DRUG MONITORING PROGRAM REVIEWED*: No *COPY OF PRESCRIPTION DRUG MONITORING REPORT IN PATIENT LIANA: No Prescriptions: Acetaminophen/HYDROcodone [[place] 325-5 MG] 1 tab PO Q6H PRN #6 tablet PRN Reason: Pain predniSONE 20 mg PO ASDIRECTED #15 tab Instructions: Radicular Pain Referrals: PCP,None [Primary Care Provider] - Forms: ED Department Discharge Additional Instructions: You have been evaluated in the ED for your low back pain. You most likely have sciatica in nature, management of this would be a course of steroids. You have been sent a prescription for this. Your first tab was given in the ER today. Please use ice as tolerated to the affected area. You may take Tylenol 500 mg q6 hrs for pain relief. Please do so until you have a tolerable level of pain with activity. Do not exceed 4000mg Tylenol in a 24 hour time period. You were given a prescription for a strong pain medication, h ydrocodone/acetaminophen 5/325mg, please take 1 tab every 6 hours as needed for pain not relieved by Tylenol or ibuprofen alone. Please note this medication does contain Tylenol in it, so do not take more than 4000 mg in a 24-hour time span. These medications can be addictive, so please take as few as possible to achieve adequate pain control. These meds can also be quite constipating, recommend that you increase your oral fluid intake and take a stool softener like MiraLAX while taking these medications. Do not drive while taking this medication. Please return to ED if your symptoms should change or worsen. Sepsis Event Note (ED) - Evaluation Sepsis Screening Result: No Definite Risk - Focused Exam Vital Signs: Vital Signs Temp Pulse Resp BP Pulse Ox 01/19/20 14:39 97 F 88 16 124/90 96
== END 2020-01-19 17:40 | disposition home or self-care (01) ==
LOC: JD.ED 14:19
DX: M54.42 Lumbago with sciatica, left side (principal); N40.0 Benign prostatic hyperplasia without lower urinary tract symptoms; I10 Essential (primary) hypertension; Z79.82 Long term (current) use of aspirin; Z79.899 Other long term (current) drug therapy
CPT/HCPCS: 81001; 96372; 99283; A9270; J1885

== ENCOUNTER 2020-11-03 21:09 | Emergency (ER) | payer MEDICAID ==
[2020-11-03 21:19] VITALS: BP 149/99; PULSE 90
[2020-11-03] MEDS: Oxymetazoline 0.05% Nasal Spray 30 ML Bottle NAS ONE (22:05)
[2020-11-03] MEDS: Lidocaine 1% with EPINEPHrine 1:100,000 10 ML MDV INJECT ONE (22:07)
--- NOTE | 2020-11-03 22:10 | EDM.PDOC ---
ED HPI GENERAL MEDICAL PROBLEM - General Chief Complaint: ENT Problem Stated Complaint: BLOODY NOSE 2 HOURS Time Seen by Provider: 11/03/20 21:44 Source of Information: Reports: Patient History Limitations: Reports: No Limitations - History of Present Illness INITIAL COMMENTS - FREE TEXT/NARRATIVE: 60-year-old male presents the emergency department with complaints of a noseblee d of the right naris that started at about 7 PM this evening. Patient states that he does not have a history of nosebleeds in the past. He states he does not take any blood thinners however he takes a baby aspirin daily. He states that the nosebleed started and he can feel it running down the back of his nose. He denies any trauma or injury to the nose. Patient does have a history of hypertension. He states he took his blood pressure medications this morning as per his usual. - Related Data Allergies Allergy/AdvReac Type Severity Reaction Status Date / Time No Known Allergies Allergy Verified 11/03/20 21:23 Home Meds: Home Meds Aspirin [Ecotrin EC] 81 mg PO DAILY 07/17/13 [History] Losartan [Cozaar] 50 mg PO DAILY 07/17/13 [History] Multivitamin [Multi-Vitamin Daily] 1 tab PO DAILY 04/15/19 [History] Finasteride 5 mg PO DAILY 04/17/19 [History] Tamsulosin HCl [Flomax] 0.8 mg PO DAILY 04/17/19 [History] Acetaminophen/HYDROcodone [[place] 325-5 MG] 1 tab PO Q6H PRN #6 tablet 01/19/20 [Rx] predniSONE 20 mg PO ASDIRECTED #15 tab 01/19/20 [Rx] Past Medical History HEENT History: Reports: Impaired Vision Other HEENT History: wears glasses Cardiovascular History: Reports: Hypertension Respiratory History: Reports: None Gastrointestinal History: Reports: Colon Polyp, GERD, Hiatal Hernia Genitourinary History: Reports: BPH, Other (See Below) Other Genitourinary History: urinary retention 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 Musculoskeletal History: Reports: Other (See Below) Other Musculoskeletal History: degenerative TFCC tear, distal radioulnar joint instability Neurological History: Reports: Other (See Below) Other Neuro History: hemifacial spasms Psychiatric History: Reports: None Endocrine/Metabolic History: Reports: None Hematologic History: Reports: None Immunologic History: Reports: None Oncologic (Cancer) History: Reports: None Dermatologic History: Reports: None - Infectious Disease History Infectious Disease History: Reports: None - Past Surgical History Head Surgeries/Procedures: Reports: None HEENT Surgical History: Reports: Eye Surgery, Other (See Below) Other HEENT Surgeries/Procedures: esophageal surgery Cardiovascular Surgical History: Reports: None Respiratory Surgical History: Reports: None GI Surgical History: Reports: Appendectomy, Colonoscopy, EGD Male Surgical History: Reports: None Endocrine Surgical History: Reports: None Neurological Surgical History: Reports: None Musculoskeletal Surgical History: Reports: Arthroscopic Knee, Carpal Tunnel Oncologic Surgical History: Reports: None Dermatological Surgical History: Reports: None Social & Family History - Family History Family Medical History: No Pertinent Family History - Tobacco Use Tobacco Use Status *Q: Never Tobacco User Second Hand Smoke Exposure: No - Caffeine Use Caffeine Use: Reports: Coffee - Recreational Drug Use Recreational Drug Use: No - Living Situation & Occupation Living situation: Reports: Alone, 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 ED EXAM, ENT - Physical Exam Exam: See Below Exam Limited By: No Limitations General Appearance: Alert, WD/WN, No Apparent Distress Ears: Normal External Exam, Hearing Grossly Normal Nose: Active Bleeding (Right anterior septum), Dried Blood (Right naris) Mouth/Throat: Normal Inspection, Other (Blood noted to the pharynx on the right side) Head: Atraumatic, Normocephalic Neck: Normal Inspection, Supple Respiratory/Chest: No Respiratory Distress, No Accessory Muscle Use Cardiovascular: Normal Peripheral Pulses, Regular Rate, Rhythm GI/Abdominal: No Distention (Male) Exam: Deferred Rectal (Males) Exam: Deferred Back: Normal Inspection Extremities: Normal Inspection Neurological: Alert, Oriented, Normal Cognition Psychiatric: Normal Affect, Normal Mood Skin: Warm, Dry, Intact, Normal Color, No Rash Lymphatic: No Adenopathy Course - Vital Signs Text/Narrative:: Upon exam, the patient does have oozing noted to the anterior septum of the right nares however I cannot localize a specific area. Patient is also noted in the back of the patient's pharynx on the right side. I have ordered 2 cc of Afrin nasal spray, 2 cc of TXA and 2 cc of lidocaine with epi. I have soaked this mixture in 2 x 2 gauze and packed the patient's naris. I have placed a nasal clamp and we will recheck the right naris in approximately 20 minutes. Last Recorded V/S: Last Vital Signs Temp 97.8 F 11/03/20 21:17 Pulse 90 11/03/20 21:17 Resp 16 11/03/20 21:17 BP 149/99 H 11/03/20 21:17 Pulse Ox 98 11/03/20 21:17 - Orders/Labs/Meds Meds: Medications Discontinued Medications Generic Name Dose Route Start Last Admin Trade Name Zane PRN Reason Stop Dose Admin Lidocaine/Epinephrine 2 ml 11/03/20 21:56 11/03/20 22:07 Lidocaine 1% With Epinephrine 1:100,000 10 Ml Mdv INJECT 11/03/20 21:57 2 ml ONETIME ONE Administration Oxymetazoline HCl 2 ml 11/03/20 21:56 11/03/20 22:05 Oxymetazoline 0.05% Nasal Cast[place] 30 Ml Bottle JAKUB 11/03/20 21:57 2 ml ONETIME ONE Administration Tranexamic Acid 1,000 mg 11/03/20 21:56 11/03/20 22:07 Tranexamic Acid 1,000 Mg/10 Ml Amp IVPUSH 11/03/20 21:57 1,000 mg ONETIME ONE Administration Tranexamic Acid Confirm 11/03/20 22:00 Tranexamic Acid 1,000 Mg/10 Ml Amp Administered 11/03/20 22:01 Dose 1,000 mg .ROUTE .[facility] ONE - Re-Assessments/Exams Free Text/Narrative Re-Assessment/Exam: 11/03/20 22:36 Gauze was removed from the patient's right naris. There is 2 small areas noted in the right anterior septum that are approximately the size of a pen tip that are pink and oozing. He does have a braised area noted at the very anterior portion of the septum that seems to have the bleeding well controlled. I did try to cauterize the 2 areas in the anterior septum however they did begin to lose again. I repacked the patient's nose with the Afrin, lidocaine with epi and TXA solution. We will recheck it in about 20 to 30 minutes. 11/03/20 23:03 Areas of bleeding have completely stopped there is no bruising noted. Patient will be discharged to home. Departure - Departure Time of Disposition: 23:03 Disposition: Home, Self-Care 01 Condition: Good Clinical Impression: Right-sided nosebleed - Discharge Information Instructions: Nosebleed, Adult, [id number] Referrals: Georgie Bender NP [Primary Care Provider] - Forms: ED Department Discharge Additional Instructions: You were seen in the emergency department this evening with a nosebleed on the right side. Bleeding was treated with a combination of medications soaked in gauze. The areas were then cauterized however there was still oozing of blood noted so we reinserted the medications soaked gauze. Upon reexamination, there is absolutely no areas of bleeding noted. Do not blow your nose. Also, recommend placing petroleum jelly in your nose every evening before bed to keep the area moist and prevent any dryness which can lead to bleeding. Air conditioning and dry air can make you prone to nosebleeds. Should you have any problems do not hesitate returning to the emergency department. Sepsis Event Note (ED) - Evaluation Sepsis Screening Result: No Definite Risk - Focused Exam Vital Signs: Vital Signs Temp Pulse Resp BP Pulse Ox 11/03/20 21:17 97.8 F 90 16 149/99 H 98
== END 2020-11-03 23:17 | disposition home or self-care (01) ==
LOC: JD.ED 21:09
DX: R04.0 Epistaxis (principal); I10 Essential (primary) hypertension; Z79.899 Other long term (current) drug therapy; Z79.82 Long term (current) use of aspirin
CPT/HCPCS: 96374; 99283; A9270; 30901; 99282

== ENCOUNTER 2021-02-04 18:03 | Emergency (ER) | payer MEDICAID ==
[2021-02-04 18:59] VITALS: BP 136/80; PULSE 81
[2021-02-04] MEDS ORDERED: diphenhydrAMINE 50 MG/ML SDV IM ONE (19:37)
[2021-02-04] MEDS ORDERED: methylPREDNISolone Sodium Succinate 125 MG/2 ML SDV IM ONE (19:37)
--- NOTE | 2021-02-04 19:40 | EDM.PDOC ---
ED HPI GENERAL MEDICAL PROBLEM - General Chief Complaint: ENT Problem Stated Complaint: L SIDE OF MOUTH SWELLING Time Seen by Provider: 02/04/21 19:38 Source of Information: Reports: Patient History Limitations: Reports: No Limitations - History of Present Illness INITIAL COMMENTS - FREE TEXT/NARRATIVE: Patient is a 60-year-old male presented to the emergency room with a complaint of lower lip swelling. Patient states his symptoms started about 3 hours ago. This started shortly after he ate dinner. Patient had some chicken that he prepared himself. He reports swelling to the left side of the lower lip. There is no associated pain. There is associated itching. He denies any swelling of the tongue or tightness in the throat. He has no difficulty with swallowing. No interventions performed prior to arrival. Other associated symptoms including itching to the bilateral upper extremities. Denies any prior history of similar symptoms. Patient states he does get collagen injections to the face every 6 months. Last 1 was performed approximately 5 months ago. Otherwise, he did recently start clindamycin on January 29 for dental infection. He has not had any issues with antibiotics in the past. - Related Data Allergies Allergy/AdvReac Type Severity Reaction Status Date / Time No Known Allergies Allergy Verified 11/03/20 21:23 Home Meds: Home Meds Aspirin [Ecotrin EC] 81 mg PO DAILY 07/17/13 [History] Losartan [Cozaar] 50 mg PO DAILY 07/17/13 [History] Tamsulosin HCl [Flomax] 0.8 mg PO DAILY 04/17/19 [History] Clindamycin HCl 300 mg PO TID 02/04/21 [History] Dutasteride 0.5 mg PO DAILY 02/04/21 [History] atorvaSTATin Calcium [Lipitor] 20 mg PO DAILY 02/04/21 [History] predniSONE 20 mg PO WITHBREAKFAST #3 tab 02/04/21 [Rx] Past Medical History HEENT History: Reports: Impaired Vision Other HEENT History: wears glasses Cardiovascular History: Reports: Hypertension Respiratory History: Reports: None Gastrointestinal History: Reports: Colon Polyp, GERD, Hiatal Hernia Genitourinary History: Reports: BPH, Other (See Below) Other Genitourinary History: urinary retention 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 Musculoskeletal History: Reports: Other (See Below) Other Musculoskeletal History: degenerative TFCC tear, distal radioulnar joint instability Neurological History: Reports: Other (See Below) Other Neuro History: hemifacial spasms Psychiatric History: Reports: None Endocrine/Metabolic History: Reports: None Hematologic History: Reports: None Immunologic History: Reports: None Oncologic (Cancer) History: Reports: None Dermatologic History: Reports: None - Infectious Disease History Infectious Disease History: Reports: None - Past Surgical History Head Surgeries/Procedures: Reports: None HEENT Surgical History: Reports: Eye Surgery, Other (See Below) Other HEENT Surgeries/Procedures: esophageal surgery Cardiovascular Surgical History: Reports: None Respiratory Surgical History: Reports: None GI Surgical History: Reports: Appendectomy, Colonoscopy, EGD Male Surgical History: Reports: None Endocrine Surgical History: Reports: None Neurological Surgical History: Reports: None Musculoskeletal Surgical History: Reports: Arthroscopic Knee, Carpal Tunnel Oncologic Surgical History: Reports: None Dermatological Surgical History: Reports: None Social & Family History - Family History Family Medical History: No Pertinent Family History - Tobacco Use Tobacco Use Status *Q: Never Tobacco User - Caffeine Use Caffeine Use: Reports: Coffee, Soda, Tea - Recreational Drug Use Recreational Drug Use: No - Living Situation & Occupation Living situation: Reports: Alone, 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) ED ROS ENT - Review of Systems Review Of Systems: See Below Free Text/Narrative/Comment: In addition to that documented in the HPI above, the additional ROS was obtained: Constitutional: Denies fevers or chills Eyes: Denies vision changes ENMT: Denies sore throat CV: Denies chest pain Resp: Denies SOB GI: Denies vomiting or diarrhea : Denies painful urination MSK: Denies recent trauma Skin: Denies new rashes Neuro: Denies new numbness or tingling or weakness Endocrine: Denies unexpected weight loss Heme: Denies bleeding disorders ED EXAM, ENT - Physical Exam Exam: See Below Text/Narrative:: I have reviewed the triage vital signs Const: Well nourished, well developed, appears stated age Eyes: Pupils Equal and reactive to light bilaterally, no conjunctival injection HENT: There are some mild swelling to the left lower lip. Otherwise, his tongue is normal. Upper lip is normal. Oropharynx is normal. Voice is normal. No difficulty with swallowing. No trismus noted. No signs of trauma or swelling, Neck supple without meningismus CV: Regular Rate Rhythm, Warm, well-perfused extremities RESP: Unlabored respiratory effort GI: soft, non-tender, non-distended, no masses MSK: No gross deformities appreciated Skin: Warm, dry. 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 Sensation and motor function of extremities grossly intact. Psych: Appropriate mood and affect. Course - Vital Signs Last Recorded V/S: Last Vital Signs Temp 37.0 C 02/04/21 18:58 Pulse 81 02/04/21 18:58 Resp 20 02/04/21 18:58 BP 136/80 02/04/21 18:58 Pulse Ox 94 L 02/04/21 18:58 - Orders/Labs/Meds Meds: Medications Discontinued Medications Generic Name Dose Route Start Last Admin Trade Name Genaroq PRN Reason Stop Dose Admin Diphenhydramine HCl 25 mg 02/04/21 19:37 02/04/21 19:52 Diphenhydramine 50 Mg/Ml Sdv IM 02/04/21 19:38 25 mg ONETIME ONE Administration Methylprednisolone Sodium Succinate 125 mg 02/04/21 19:37 02/04/21 19:52 Methylprednisolone Sodium Succinate 125 Mg/2 Ml Sdv IM 02/04/21 19:38 125 mg ONETIME ONE Administration Departure - Departure Time of Disposition: 20:38 Disposition: Home, Self-Care 01 Clinical Impression: Allergic reaction - Discharge Information Prescriptions: predniSONE 20 mg PO WITHBREAKFAST #3 tab Referrals: Georgie Bender NP [Primary Care Provider] - Forms: ED Department Discharge Additional Instructions: I would recommend 25 mg of Benadryl every 8 hours. Take steroids for the next 3 days. Return to the emergency room if swelling worsens, you have difficulty swallowing or any other emergent concerns. Sepsis Event Note (ED) - Focused Exam Vital Signs: Vital Signs Temp Pulse Resp BP Pulse Ox 02/04/21 18:58 37.0 C 81 20 136/80 94 L - Assessment/Plan Assessment:: Patient is a 60-year-old male presenting to the emergency room with lower lip swelling. Lip swelling is mild in nature. He did receive Solu-Medrol and Benadryl with improvement of symptoms. Otherwise, there is no evidence of airway obstruction and no signs of infection. No indication for further management in the emergency room at this point in time. He will be discharged with appropriate return precautions. He agrees with plan of care.
== END 2021-02-04 21:00 | disposition home or self-care (01) ==
LOC: JD.ED 18:03
DX: T78.1XXA Other adverse food reactions, not elsewhere classified, initial encounter (principal); N40.0 Benign prostatic hyperplasia without lower urinary tract symptoms; I10 Essential (primary) hypertension; Z79.82 Long term (current) use of aspirin; Z79.899 Other long term (current) drug therapy
CPT/HCPCS: 96372; 99283; J1200; J2930

== ENCOUNTER 2021-03-12 11:41 | Emergency (ER) | payer MEDICAID ==
[2021-03-12 12:16] VITALS: BP 131/82; PULSE 89
--- NOTE | 2021-03-12 12:44 | EDM.PDOC ---
<VernellHolly - Last Filed: 03/12/21 13:15> ED HPI GENERAL MEDICAL PROBLEM - General Chief Complaint: ENT Problem Stated Complaint: ENT PROBLEMS Time Seen by Provider: 03/12/21 12:30 Source of Information: Reports: Patient History Limitations: Reports: No Limitations, Language Barrier (Frisian is not his first language ) - History of Present Illness INITIAL COMMENTS - FREE TEXT/NARRATIVE: Efe is a 60-year-old male who presents for evaluation of head "pressure" that started 3 days ago. Green tea and Aspirin have provided him some relief. Nothing specific makes it worse. He rated the pain a 6/10 and describes it as "irritation and fire" in his throat. He endorses a slight, non-productive cough. He denies sinus pressure, headache, diahrrea, fever, chills, nausea, vomiting, chest pain and shortness of breath. Onset: Gradual Onset Date: 03/09/21 Duration: Day(s): Location: Reports: Neck Quality: Reports: Pressure Severity: Moderate Improves with: Reports: Other (Tea) Worsens with: Reports: None Throat Pain Score (Numeric/FACES): 5 - Related Data Allergies Allergy/AdvReac Type Severity Reaction Status Date / Time No Known Allergies Allergy Verified 03/12/21 12:17 Home Meds: Home Meds Aspirin [Ecotrin EC] 81 mg PO DAILY 07/17/13 [History] Losartan [Cozaar] 50 mg PO DAILY 07/17/13 [History] Tamsulosin HCl [Flomax] 0.8 mg PO DAILY 04/17/19 [History] Clindamycin HCl 300 mg PO TID 02/04/21 [History] Dutasteride 0.5 mg PO DAILY 02/04/21 [History] atorvaSTATin Calcium [Lipitor] 20 mg PO DAILY 02/04/21 [History] predniSONE 20 mg PO WITHBREAKFAST #3 tab 02/04/21 [Rx] Cefdinir [Omnicef] 300 mg PO BID #16 cap 03/12/21 [Rx] Past Medical History HEENT History: Reports: Impaired Vision Other HEENT History: wears glasses Cardiovascular History: Reports: Hypertension Respiratory History: Reports: None Gastrointestinal History: Reports: Colon Polyp, GERD, Hiatal Hernia Genitourinary History: Reports: BPH, Other (See Below) Other Genitourinary History: urinary retention [employer]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 Musculoskeletal History: Reports: Other (See Below) Other Musculoskeletal History: degenerative TFCC tear, distal radioulnar joint instability Neurological History: Reports: Other (See Below) Other Neuro History: hemifacial spasms Psychiatric History: Reports: None Endocrine/Metabolic History: Reports: None Hematologic History: Reports: None Immunologic History: Reports: None Oncologic (Cancer) History: Reports: None Dermatologic History: Reports: None - Infectious Disease History Infectious Disease History: Reports: None - Past Surgical History Head Surgeries/Procedures: Reports: None HEENT Surgical History: Reports: Eye Surgery, Other (See Below) Other HEENT Surgeries/Procedures: esophageal surgery Cardiovascular Surgical History: Reports: None Respiratory Surgical History: Reports: None GI Surgical History: Reports: Appendectomy, Colonoscopy, EGD Male Surgical History: Reports: None Endocrine Surgical History: Reports: None Neurological Surgical History: Reports: None Musculoskeletal Surgical History: Reports: Arthroscopic Knee, Carpal Tunnel Oncologic Surgical History: Reports: None Dermatological Surgical History: Reports: None Social & Family History - Family History Family Medical History: No Pertinent Family History - Tobacco Use Tobacco Use Status *Q: Never Tobacco User Second Hand Smoke Exposure: No - Caffeine Use Caffeine Use: Reports: Coffee, Soda, Tea - Recreational Drug Use Recreational Drug Use: No - Living Situation & Occupation Living situation: Reports: Alone, 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 Constitutional: Reports: No Symptoms HEENT: Reports: No Symptoms, Ear Pain, Throat Pain Respiratory: Reports: No Symptoms Cardiovascular: Reports: No Symptoms Endocrine: Reports: No Symptoms GI/Abdominal: Reports: No Symptoms : Reports: No Symptoms Musculoskeletal: Reports: No Symptoms Skin: Reports: No Symptoms Neurological: Reports: No Symptoms Psychiatric: Reports: No Symptoms Hematologic/Lymphatic: Reports: No Symptoms Immunologic: Reports: No Symptoms ED EXAM, ENT - Physical Exam Exam: See Below Exam Limited By: No Limitations General Appearance: Alert, WD/WN, No Apparent Distress, Other (Temp 97.4, Pulse 89, RR 15, BP 131/82, SpO2 100% on room air. ) Eye Exam: Bilateral Eye: EOMI, PERRL Ears: Normal External Exam, Hearing Grossly Normal, TM Bulging (slight bulging of right), Other (Erythema of right canal. Scaring noted on Right TM. ) Nose: Normal Inspection, Normal Mucousa, No Blood Mouth/Throat: Normal Gums, Pharyngeal Erythema, Other (Dry, non-productive cough) Head: Atraumatic Neck: Normal Inspection, Supple, Non-Tender, Full Range of Motion Respiratory/Chest: No Respiratory Distress, Lungs Clear, Normal Breath Sounds Cardiovascular: Regular Rate, Rhythm, No Edema GI/Abdominal: Normal Bowel Sounds, Soft, Non-Tender Extremities: Normal Inspection, Normal Range of Motion Neurological: Alert, Oriented, Normal Cognition, No Motor/Sensory Deficits Psychiatric: Normal Affect, Normal Mood Skin: Warm, Dry, Intact, Normal Color, No Rash Lymphatic: No Adenopathy Course - Re-Assessments/Exams Free Text/Narrative Re-Assessment/Exam: 03/12/21 12:53 Initial orders include Step swab and Covid/influenza swab. Departure - Departure Disposition: Home, Self-Care 01 Clinical Impression: Otitis media Qualifiers: Otitis media type: suppurative Chronicity: acute Laterality: right Recurrence: recurrent Spontaneous tympanic membrane rupture: without spontaneous rupture Qualified Code(s): H66.004 - Acute suppurative otitis media without spontaneous rupture of ear drum, recurrent, right ear - Discharge Information Prescriptions: Cefdinir [Omnicef] 300 mg PO BID #16 cap Instructions: Otitis Media, Adult Referrals: Georgie Bender NP [Primary Care Provider] - Forms: ED Department Discharge Additional Instructions: Evaluation in the emergency room today in regards to right ear pain is developed over the last few days. Associated sore throat for 3 days and mild development of a nonproductive cough today. Influenza screen and COVID-19 screen and rapid strep screen all proved to be negative. The right eardrum is inflamed reddened and bulging with evidence of scar tissue from likely previous ruptures as a youngster. Treatment is antibiotic Omnicef 300 mg tablet twice daily for the next 8 days. Motrin or ibuprofen 600 mg every 6 hours as needed to relieve pain. Noted takes the antibiotics at least 2 days to start to work well. Expect resolution of your pain over the next 72 to 96 hours. If not markedly better 96 hours you should be seen again. The prescription for Omnicef was sent to [facility] pharmacy on [facility] today. <Eliel Pimentel - Last Filed: 03/12/21 14:52> Course - Vital Signs Last Recorded V/S: Last Vital Signs Temp 36.3 C 03/12/21 12:14 Pulse 89 03/12/21 12:14 Resp 15 03/12/21 12:14 BP 131/82 03/12/21 12:14 Pulse Ox 100 03/12/21 12:14 - Orders/Labs/Meds Orders: Active Orders 24 hr Category Date Time Status COVID-19/FLU A+B [[facility]] Stat Lab 03/12/21 12:20 Results Labs: Laboratory Tests 03/12/21 03/12/21 Range/Units 12:20 12:20 SARS-CoV-2 RNA (ROBBIN) Negative (NEGATIVE) Group A Strep (PCR) Not detected (NOT DETECT) - Radiology Interpretation Free Text/Narrative:: 60-year-old male of [place] descent presents to the ED complaining of intermittent pain in his right ear for the last day or so. Sore throat predated this by about 3 days. He is also developing a mild nonproductive cough. He did not believe he had a fever but his temperature here is 37.4 and by palpation he feels slightly warm. He has had screens done for influenza and COVID-19 and a rapid strep screen we will await those results. Examination I agree with physician assistant professor of philosophy student Holly Matt evaluation and assessment and documentation in the chart. The patient does have a mild right otitis media and lots of scar tissue and he admits that his ears did rupture when he was a youngster. The oropharynx appears benign with mild erythema no exudate and no cervical gland adenopathy. Lungs were clear to auscultation percussion. - Re-Assessments/Exams Free Text/Narrative Re-Assessment/Exam: 03/12/21 13:09 Influenza screen came back negative although it has not yet been reported this way. We contacted the lab to get this result. 03/12/21 13:57 patient will be discharged on Omnicef 300 mg twice daily for the next 8 days to clear up ear infection. He will use Motrin 600 mg every 6 hours as needed for relief of pain. Departure - Departure Time of Disposition: 13:58 Condition: Fair - Discharge Information *PRESCRIPTION DRUG MONITORING PROGRAM REVIEWED*: Not Applicable *COPY OF PRESCRIPTION DRUG MONITORING REPORT IN PATIENT LIANA: Not Applicable Sepsis Event Note (ED) - Focused Exam Vital Signs: Vital Signs Temp Pulse Resp BP Pulse Ox 03/12/21 12:14 36.3 C 89 15 131/82 100 - My Orders Last 24 Hours: My Active Orders 03/12/21 12:20 COVID-19/FLU A+B [[facility]LEC] Stat - Assessment/Plan Last 24 Hours: My Active Orders 03/12/21 12:20 COVID-19/FLU A+B [MOLEC] Stat
[2021-03-12 13:32] LABS: CORONAVIRUS COVID-19 NAA NEGATIVE (NEGATIVE)
== END 2021-03-12 14:25 | disposition home or self-care (01) ==
LOC: JD.ED 11:41
DX: H66.004 Acute suppurative otitis media without spontaneous rupture of ear drum, recurrent, right ear (principal); I10 Essential (primary) hypertension; N40.0 Benign prostatic hyperplasia without lower urinary tract symptoms; Z79.82 Long term (current) use of aspirin; Z79.899 Other long term (current) drug therapy; Z20.822 Contact with and (suspected) exposure to COVID-19
CPT/HCPCS: 0240U; 87651; 99283

== ENCOUNTER 2021-05-19 15:33 | Emergency (ER) | payer MEDICAID ==
[2021-05-19 15:54] VITALS: BP 126/91; PULSE 100
[2021-05-19] MEDS ORDERED: Albuterol/Ipratropium 3.0-0.5 MG/3 ML Neb Soln NEB PRN (16:10)
[2021-05-19] MEDS ORDERED: Albuterol 6.7 GM Inhaler INH ONE (16:29)
== END 2021-05-19 17:15 | disposition home or self-care (01) ==
LOC: JD.ED 15:33
DX: J20.9 Acute bronchitis, unspecified (principal); J01.20 Acute ethmoidal sinusitis, unspecified; H65.01 Acute serous otitis media, right ear; E78.00 Pure hypercholesterolemia, unspecified; I10 Essential (primary) hypertension; K21.9 Gastro-esophageal reflux disease without esophagitis; Z79.899 Other long term (current) drug therapy; Z79.82 Long term (current) use of aspirin
CPT/HCPCS: 71045; 94640; 99285; A9270; 99284; J7620-GY

== ENCOUNTER 2021-06-07 13:07 | Emergency (ER) | payer BC, MEDICAID ==
[2021-06-07 13:27] VITALS: BP 134/84; PULSE 76
[2021-06-07] MEDS ORDERED: Pseudoephedrine 30 MG Tab PO ONE (14:00)
[2021-06-07 16:35] LABS: CORONAVIRUS COVID-19 NAA NEGATIVE (NEGATIVE)
== END 2021-06-07 17:15 | disposition home or self-care (01) ==
LOC: JD.ED 13:07
DX: R09.81 Nasal congestion (principal); E78.00 Pure hypercholesterolemia, unspecified; I10 Essential (primary) hypertension; K21.9 Gastro-esophageal reflux disease without esophagitis; N40.0 Benign prostatic hyperplasia without lower urinary tract symptoms; Z79.899 Other long term (current) drug therapy; Z79.82 Long term (current) use of aspirin; Z20.822 Contact with and (suspected) exposure to COVID-19
CPT/HCPCS: 0240U; 36415; 71045; 80053; 83735; 83880; 84443; 85025; 86140; 86308; 99283; A9270; 99284

== ENCOUNTER 2022-07-12 22:07 | Emergency (ER) | payer BC, MEDICAID ==
[2022-07-12] MEDS ORDERED: Ondansetron 4 MG/2 ML SDV IVPUSH ONE (23:10)
[2022-07-12] MEDS ORDERED: Sodium Chloride 0.9% 1,000 ML IV STA (23:10)
[2022-07-12] MEDS ORDERED: Sodium Chloride 0.9% 10 ML Syringe FLUSH PRN (23:10)
[2022-07-12 23:17] LABS: BASOPHILS ABSOLUTE AUTO 0.01 K/mm3 (0.01-0.08); BASOPHILS PERCENT AUTO 0.1 % (0.1-1.2); EOSINOPHILS ABSOLUTE AUTO 0.01 K/mm3 (0.04-0.54); EOSINOPHILS PERCENT AUTO 0.1 (0.8-7.0); HEMATOCRIT 46.1 % (40.1-51.0); HEMOGLOBIN 15.3 gm/dl (13.7-17.5); IMMATURE GRAN ABSOLUTE AUTO 0.02 K/mm3 (0.00-0.10); IMMATURE GRAN PERCENT AUTO 0.1 % (<=1.0); LYMPHOCYTES ABSOLUTE AUTO 0.51 K/mm3 (1.32-3.57); LYMPHOCYTES PERCENT AUTO 3.5 % (21.8-53.1); MEAN CORPUSCULAR HEMOGLOBIN 29.8 pg (25.7-32.2); MEAN CORPUSCULAR HGB CONC 33.2 g/dl (32.2-35.5); MEAN CORPUSCULAR VOLUME 89.7 fl (79.0-92.2); MEAN PLATELET VOLUME 10.7 fl (9.4-12.3); MONOCYTES ABSOLUTE AUTO 0.51 K/mm3 (0.30-0.82); MONOCYTES PERCENT AUTO 3.5 % (5.3-12.2); NEUTROPHILS ABSOLUTE AUTO 13.42 K/mm3 (1.78-5.38); NEUTROPHILS PERCENT AUTO 92.7 % (34.0-67.9); PLATELET COUNT,PLT 215 K/mm3 (163-337); RED BLOOD CELL COUNT 5.14 M/mm3 (4.63-6.08); WHITE BLOOD CELL COUNT,WBC 14.48 K/mm3 (4.23-9.07)
[2022-07-12 23:30] LABS: ANION GAP 13.8 (5-15); BILIRUBIN TOTAL 0.8 mg/dL (0.2-1.0); BUN/CREATININE RATIO 21.7 (14-18); CALCIUM 9.1 mg/dL (8.5-10.1); CREATININE 1.2 mg/dL (0.7-1.3); EST CRCL DRUG DOSING (CG) 54.1 mL/min; POTASSIUM,K 3.8 mEq/L (3.5-5.1); PROTEIN TOTAL,TP 7.9 g/dl (6.4-8.2)
[2022-07-13 00:41] VITALS: BP 129/78; PULSE 71
== END 2022-07-13 00:28 | disposition home or self-care (01) ==
LOC: JD.ED 22:07
DX: A08.4 Viral intestinal infection, unspecified (principal); E78.00 Pure hypercholesterolemia, unspecified; I10 Essential (primary) hypertension; Z79.82 Long term (current) use of aspirin; Z79.899 Other long term (current) drug therapy
CPT/HCPCS: 36415; 80053; 83690; 85025; 96361; 96374; 99284; J2405; J7030

== ENCOUNTER 2022-10-21 18:51 | Emergency (ER) | payer MEDICAID ==
[2022-10-21 20:23] LABS: BASOPHILS ABSOLUTE AUTO 0.02 K/mm3 (0.01-0.08); BASOPHILS PERCENT AUTO 0.3 % (0.1-1.2); EOSINOPHILS ABSOLUTE AUTO 0.09 K/mm3 (0.04-0.54); EOSINOPHILS PERCENT AUTO 1.2 (0.8-7.0); HEMATOCRIT 39.7 % (40.1-51.0); HEMOGLOBIN 13.5 gm/dl (13.7-17.5); IMMATURE GRAN ABSOLUTE AUTO 0.01 K/mm3 (0.00-0.10); IMMATURE GRAN PERCENT AUTO 0.1 % (<=1.0); LYMPHOCYTES ABSOLUTE AUTO 2.15 K/mm3 (1.32-3.57); LYMPHOCYTES PERCENT AUTO 27.7 % (21.8-53.1); MEAN CORPUSCULAR HEMOGLOBIN 29.9 pg (25.7-32.2); MEAN CORPUSCULAR VOLUME 87.8 fl (79.0-92.2); MEAN PLATELET VOLUME 10.8 fl (9.4-12.3); MONOCYTES ABSOLUTE AUTO 0.78 K/mm3 (0.30-0.82); MONOCYTES PERCENT AUTO 10.1 % (5.3-12.2); NEUTROPHILS PERCENT AUTO 60.6 % (34.0-67.9); PLATELET COUNT,PLT 224 K/mm3 (163-337); RED BLOOD CELL COUNT 4.52 M/mm3 (4.63-6.08); WHITE BLOOD CELL COUNT,WBC 7.75 K/mm3 (4.23-9.07)
[2022-10-21 20:33] LABS: A/G RATIO 1.1 (1-2); ALANINE AMINOTRANSFERASE,ALT 22 U/L (16-63); ALBUMIN 3.8 g/dl (3.4-5.0); ALKALINE PHOSPHATASE 68 U/L (46-116); ANION GAP 13.6 (5-15); ASPARTATE AMNIOTRANSFERASE,AST 20 U/L (15-37); BILIRUBIN TOTAL 0.4 mg/dL (0.2-1.0); BLOOD UREA NITROGEN,BUN 22 mg/dL (7-18); BUN/CREATININE RATIO 14.7 (14-18); CALCIUM 8.6 mg/dL (8.5-10.1); CARBON DIOXIDE,CO2 26 mEq/L (21-32); CHLORIDE,CL 103 mEq/L (98-107); CREATININE 1.5 mg/dL (0.7-1.3); ESTIMATED GFR 52 mL/min (>60); GLUCOSE RANDOM 123 mg/dL (70-99); POTASSIUM,K 3.6 mEq/L (3.5-5.1); PROTEIN TOTAL,TP 7.3 g/dl (6.4-8.2); SODIUM,NA 139 mEq/L (136-145)
[2022-10-21 21:51] LABS: APPEARANCE,URINE CLEAR (Clear); BILIRUBIN,URINE NEGATIVE (Negative); COLOR,URINE YELLOW (Yellow); GLUCOSE,URINE NEGATIVE (Negative); KETONES,URINE NEGATIVE (Negative); LEUKOCYTE ESTERASE,URINE NEGATIVE (Negative); NITRITE,URINE NEGATIVE (Negative); OCCULT BLOOD,URINE NEGATIVE (Negative); PH,URINE 8.5 (5.0-8.0); PROTEIN,URINE NEGATIVE (Negative); UROBILINOGEN,URINE 0.2 (0.2-1.0)
[2022-10-21 22:12] LABS: BACTERIA,URINE FEW /hpf (FEW); MUCUS,URINE FEW /hpf (FEW); RBC,URINE 0-5 /hpf (0-5); SQUAMOUS EPITHELIAL CELLS,UR 0-5 /hpf (0-5); WBC,URINE 0-5 /hpf (0-5)
[2022-10-21] MEDS ORDERED: Ketorolac 30 MG/ML SDV IVPUSH ONE (22:59)
[2022-10-21] MEDS ORDERED: Acetaminophen 325 MG Tab PO ONE (22:59)
[2022-10-21] MEDS ORDERED: Ondansetron 4 MG/2 ML SDV IVPUSH ONE (23:00)
[2022-10-22 03:19] VITALS: BP 122/77; PULSE 70
== END 2022-10-21 23:22 | disposition home or self-care (01) ==
LOC: JD.ED 18:51
DX: N13.2 Hydronephrosis with renal and ureteral calculous obstruction (principal); K21.9 Gastro-esophageal reflux disease without esophagitis; Z79.82 Long term (current) use of aspirin; Z79.899 Other long term (current) drug therapy
CPT/HCPCS: 36415; 74176; 80053; 81001; 85025; 96374; 96375; 99284; A9270; J1885; J2405

== ENCOUNTER 2022-11-11 10:54 | Emergency (ER) | payer MEDICAID ==
[2022-11-11] MEDS ORDERED: HYDROmorphone 0.5 MG/0.5 ML Syringe IVPUSH ONE (11:23)
[2022-11-11] MEDS ORDERED: Ondansetron 4 MG/2 ML SDV IVPUSH ONE (11:23)
[2022-11-11] MEDS ORDERED: Sodium Chloride 0.9% 1,000 ML IV ONE (11:23)
[2022-11-11 12:03] LABS: BASOPHILS PERCENT AUTO 0.3 % (0.0-1.0); EOSINOPHILS ABSOLUTE AUTO 0.1 K/mm3 (0.0-0.4); HEMATOCRIT 42.4 % (42.0-52.0); HEMOGLOBIN 14.5 gm/dl (14.0-18.0); IMMATURE GRAN ABSOLUTE AUTO 0.02 K/mm3 (0.00-0.05); IMMATURE GRAN PERCENT AUTO 0.3 % (0.0-0.4); LYMPHOCYTES ABSOLUTE AUTO 2.1 K/mm3 (1.0-4.8); LYMPHOCYTES PERCENT AUTO 30.1 % (24.0-44.0); MEAN CORPUSCULAR HGB CONC 34.2 g/dl (32.0-36.0); MEAN CORPUSCULAR VOLUME 87.8 fl (83.0-99.0); MEAN PLATELET VOLUME 10.1 fl (9.4-12.4); MONOCYTES ABSOLUTE AUTO 0.6 K/mm3 (0.0-0.8); MONOCYTES PERCENT AUTO 8.7 % (0.0-8.0); NEUTROPHILS ABSOLUTE AUTO 4.1 K/mm3 (1.8-7.7); NEUTROPHILS PERCENT AUTO 59.6 % (41.0-71.0); PLATELET COUNT,PLT 237 K/mm3 (150-400); RED BLOOD CELL COUNT 4.83 M/mm3 (4.52-5.90); WHITE BLOOD CELL COUNT,WBC 6.82 K/mm3 (3.9-11.3)
[2022-11-11 12:20] LABS: APPEARANCE,URINE CLEAR (Clear); BILIRUBIN,URINE NEGATIVE (Negative); COLOR,URINE YELLOW (Yellow); GLUCOSE,URINE NEGATIVE (Negative); KETONES,URINE NEGATIVE (Negative); LEUKOCYTE ESTERASE,URINE NEGATIVE (Negative); NITRITE,URINE NEGATIVE (Negative); OCCULT BLOOD,URINE 2+ (Negative); PH,URINE 6.5 (5.0-8.0); PROTEIN,URINE NEGATIVE (Negative); UROBILINOGEN,URINE 0.2 (0.2-1.0)
[2022-11-11 12:23] LABS: A/G RATIO 1.1 (1-2); ALANINE AMINOTRANSFERASE,ALT 24 U/L (16-63); ALKALINE PHOSPHATASE 80 U/L (46-116); ANION GAP 12.9 (5-15); ASPARTATE AMNIOTRANSFERASE,AST 15 U/L (15-37); BILIRUBIN TOTAL 0.5 mg/dL (0.2-1.0); BLOOD UREA NITROGEN,BUN 19 mg/dL (7-18); BUN/CREATININE RATIO 17.3 (14-18); C-REACTIVE PROTEIN <0.2 mg/dL (<1.0); CARBON DIOXIDE,CO2 25 mEq/L (21-32); CHLORIDE,CL 106 mEq/L (98-107); CREATININE 1.1 mg/dL (0.7-1.3); EST CRCL DRUG DOSING (CG) 61.22 mL/min; ESTIMATED GFR 75 mL/min (>60); GLUCOSE RANDOM 100 mg/dL (70-99); POTASSIUM,K 3.9 mEq/L (3.5-5.1); PROTEIN TOTAL,TP 7.8 g/dl (6.4-8.2); SODIUM,NA 140 mEq/L (136-145)
[2022-11-11 12:33] LABS: BACTERIA,URINE FEW /hpf (FEW); MUCUS,URINE NOT SEEN /hpf (FEW); SQUAMOUS EPITHELIAL CELLS,UR NOT SEEN /hpf (0-5); WBC,URINE 0-5 /hpf (0-5)
[2022-11-11 16:01] VITALS: BP 138/88; PULSE 71
== END 2022-11-11 14:28 | disposition home or self-care (01) ==
LOC: JD.ED 10:54
DX: N13.2 Hydronephrosis with renal and ureteral calculous obstruction (principal); Z79.899 Other long term (current) drug therapy
CPT/HCPCS: 36415; 74176; 80053; 81001; 85025; 86140; 96361; 96374; 96375; 99284; J1170; J2405; J7030

== ENCOUNTER 2022-11-29 09:42 | Emergency (ER) | payer MEDICAID ==
[2022-11-29 11:31] VITALS: BP 132/72; PULSE 82
== END 2022-11-29 11:30 | disposition home or self-care (01) ==
LOC: JD.ED 09:42
DX: M65.4 Radial styloid tenosynovitis [de Quervain] (principal); Z79.899 Other long term (current) drug therapy
CPT/HCPCS: 29125; 99283

== ENCOUNTER 2022-12-18 23:03 | Emergency (ER) | payer MEDICAID ==
[2022-12-18] MEDS ORDERED: HYDROmorphone 1 MG/ML Syringe IM ONE (23:39)
[2022-12-19 00:27] LABS: APPEARANCE,URINE SLT CLOUDY (Clear); BILIRUBIN,URINE NEGATIVE (Negative); COLOR,URINE YELLOW (Yellow); GLUCOSE,URINE NEGATIVE (Negative); KETONES,URINE TRACE (Negative); LEUKOCYTE ESTERASE,URINE NEGATIVE (Negative); NITRITE,URINE NEGATIVE (Negative); OCCULT BLOOD,URINE 2+ (Negative); PROTEIN,URINE TRACE (Negative)
[2022-12-19 00:48] LABS: BACTERIA,URINE FEW /hpf (FEW); EPITHELIAL CELLS,URINE 0-5 /hpf (0-5); MUCUS,URINE FEW /hpf (FEW); RBC,URINE >100 /hpf (0-5); WBC,URINE 0-5 /hpf (0-5)
[2022-12-19 01:25] VITALS: BP 109/70; PULSE 76
== END 2022-12-19 01:25 | disposition home or self-care (01) ==
LOC: JD.ED 23:03
DX: N20.1 Calculus of ureter (principal); Z79.82 Long term (current) use of aspirin; Z79.899 Other long term (current) drug therapy
CPT/HCPCS: 81001; 96372; 99284; J1170; 99283

== ENCOUNTER 2023-05-23 14:43 | Emergency (ER) | payer SELFPAY ==
[2023-05-23 15:49] VITALS: BP 114/70; PULSE 78
== END 2023-05-23 15:45 | disposition home or self-care (01) ==
LOC: JD.ED 14:43
DX: H65.02 Acute serous otitis media, left ear (principal); H69.93 Unspecified Eustachian tube disorder, bilateral; K21.9 Gastro-esophageal reflux disease without esophagitis; Z79.82 Long term (current) use of aspirin; Z79.899 Other long term (current) drug therapy
CPT/HCPCS: 99282; 99283

== ENCOUNTER 2023-06-03 19:31 | Emergency (ER) | payer MEDICARE ==
[2023-06-03] MEDS: Naproxen 500 MG Tab PO ONE (21:44)
[2023-06-03 21:58] VITALS: BP 132/87; PULSE 77
== END 2023-06-03 21:58 | disposition home or self-care (01) ==
LOC: JD.ED 19:31
DX: M26.622 Arthralgia of left temporomandibular joint (principal); I10 Essential (primary) hypertension; E78.00 Pure hypercholesterolemia, unspecified; K21.9 Gastro-esophageal reflux disease without esophagitis; Z79.82 Long term (current) use of aspirin; Z79.899 Other long term (current) drug therapy
CPT/HCPCS: 70486; 99283; A9270

== ENCOUNTER 2023-07-17 15:21 | Emergency (ER) | payer MEDICARE ==
[2023-07-17] MEDS: Fluticasone NASAL Spray 16 GM Bottle NASBOTH ONE (17:00)
[2023-07-17 18:37] VITALS: BP 121/92; PULSE 66
[2023-07-17] MEDS: Dexamethasone 10 MG/ML SDV PO ONE (18:37)
== END 2023-07-17 18:43 | disposition home or self-care (01) ==
LOC: JD.ED 15:21
DX: J02.9 Acute pharyngitis, unspecified (principal); J01.90 Acute sinusitis, unspecified; I10 Essential (primary) hypertension; E78.00 Pure hypercholesterolemia, unspecified; K21.9 Gastro-esophageal reflux disease without esophagitis; Z86.16 Personal history of COVID-19; Z79.899 Other long term (current) drug therapy
CPT/HCPCS: 87651; 99283; A9270; J8540

== ENCOUNTER 2023-10-22 12:57 | Emergency (ER) | payer MEDICARE ==
[2023-10-22 13:44] LABS: BASOPHILS PERCENT AUTO 0.4 % (0.0-1.0); EOSINOPHILS PERCENT AUTO 0.5 % (0.0-6.0); HEMATOCRIT 40.7 % (42.0-52.0); HEMOGLOBIN 13.9 gm/dl (14.0-18.0); IMMATURE GRAN ABSOLUTE AUTO 0.03 K/mm3 (0.00-0.05); IMMATURE GRAN PERCENT AUTO 0.4 % (0.0-0.4); LYMPHOCYTES ABSOLUTE AUTO 2.1 K/mm3 (1.0-4.8); LYMPHOCYTES PERCENT AUTO 25.5 % (24.0-44.0); MEAN CORPUSCULAR HEMOGLOBIN 29.7 pg (28.0-32.0); MEAN CORPUSCULAR HGB CONC 34.2 g/dl (32.0-36.0); MONOCYTES ABSOLUTE AUTO 0.5 K/mm3 (0.0-0.8); NEUTROPHILS ABSOLUTE AUTO 5.4 K/mm3 (1.8-7.7); NEUTROPHILS PERCENT AUTO 67.2 % (41.0-71.0); PLATELET COUNT,PLT 230 K/mm3 (150-400); RED BLOOD CELL COUNT 4.68 M/mm3 (4.52-5.90); WHITE BLOOD CELL COUNT,WBC 8.04 K/mm3 (3.9-11.3)
[2023-10-22] MEDS: Sodium Chloride 0.9% 1,000 ML IV SCH (13:53)
[2023-10-22 14:09] LABS: A/G RATIO 0.9 (1-2); ALBUMIN 3.3 g/dl (3.4-5.0); ANION GAP 9.4 (5-15); BILIRUBIN TOTAL 0.4 mg/dL (0.2-1.0); BUN/CREATININE RATIO 14.5 (14-18); CALCIUM 8.7 mg/dL (8.5-10.1); CREATININE 1.1 mg/dL (0.7-1.3); EST CRCL DRUG DOSING (CG) 58.24 mL/min; MAGNESIUM 1.7 mg/dL (1.8-2.4); POTASSIUM,K 3.4 mEq/L (3.5-5.1); PROTEIN TOTAL,TP 6.9 g/dl (6.4-8.2)
[2023-10-22 14:14] LABS: LACTIC ACID 1.2 mmol/L (0.4-2.0)
[2023-10-22 14:29] LABS: APPEARANCE,URINE CLEAR (Clear); BILIRUBIN,URINE NEGATIVE (Negative); COLOR,URINE YELLOW (Yellow); GLUCOSE,URINE NEGATIVE (Negative); KETONES,URINE NEGATIVE (Negative); LEUKOCYTE ESTERASE,URINE NEGATIVE (Negative); NITRITE,URINE NEGATIVE (Negative); OCCULT BLOOD,URINE NEGATIVE (Negative); PROTEIN,URINE NEGATIVE (Negative)
[2023-10-22 16:01] VITALS: BP 135/89; PULSE 76
== END 2023-10-22 16:00 | disposition home or self-care (01) ==
LOC: JD.ED 12:57
DX: K59.00 Constipation, unspecified (principal); R11.2 Nausea with vomiting, unspecified; I10 Essential (primary) hypertension; E78.00 Pure hypercholesterolemia, unspecified; K21.9 Gastro-esophageal reflux disease without esophagitis; Z86.16 Personal history of COVID-19; Z79.899 Other long term (current) drug therapy
CPT/HCPCS: 36415; 74018; 80053; 81003; 83605; 83690; 83735; 85025; 96360; 99284; J7030; 99282

== ENCOUNTER 2024-01-18 15:08 | Emergency (ER) | payer MEDICARE, MEDICAID ==
[2024-01-18 15:23] VITALS: BP 150/89; PULSE 90
[2024-01-18 16:09] LABS: APPEARANCE,URINE CLEAR (Clear); BILIRUBIN,URINE NEGATIVE (Negative); COLOR,URINE YELLOW (Yellow); GLUCOSE,URINE NEGATIVE (Negative); KETONES,URINE NEGATIVE (Negative); LEUKOCYTE ESTERASE,URINE NEGATIVE (Negative); NITRITE,URINE NEGATIVE (Negative); OCCULT BLOOD,URINE NEGATIVE (Negative); PROTEIN,URINE TRACE (Negative); UROBILINOGEN,URINE 0.2 (0.2-1.0)
[2024-01-18 16:22] LABS: BASOPHILS PERCENT AUTO 0.4 % (0.0-1.0); EOSINOPHILS ABSOLUTE AUTO 0.2 K/mm3 (0.0-0.4); EOSINOPHILS PERCENT AUTO 1.6 % (0.0-6.0); HEMATOCRIT 43.7 % (42.0-52.0); HEMOGLOBIN 14.9 gm/dl (14.0-18.0); IMMATURE GRAN ABSOLUTE AUTO 0.02 K/mm3 (0.00-0.05); IMMATURE GRAN PERCENT AUTO 0.2 % (0.0-0.4); LYMPHOCYTES ABSOLUTE AUTO 3.1 K/mm3 (1.0-4.8); LYMPHOCYTES PERCENT AUTO 33.2 % (24.0-44.0); MEAN CORPUSCULAR HGB CONC 34.1 g/dl (32.0-36.0); MEAN CORPUSCULAR VOLUME 87.9 fl (83.0-99.0); MEAN PLATELET VOLUME 10.2 fl (9.4-12.4); MONOCYTES ABSOLUTE AUTO 0.8 K/mm3 (0.0-0.8); MONOCYTES PERCENT AUTO 8.6 % (0.0-8.0); NEUTROPHILS ABSOLUTE AUTO 5.2 K/mm3 (1.8-7.7); PLATELET COUNT,PLT 260 K/mm3 (150-400); RED BLOOD CELL COUNT 4.97 M/mm3 (4.52-5.90); WHITE BLOOD CELL COUNT,WBC 9.31 K/mm3 (3.9-11.3)
[2024-01-18 16:32] LABS: RBC,URINE 0-5 /hpf (0-5); SQUAMOUS EPITHELIAL CELLS,UR 0-5 /hpf (0-5); WBC,URINE 0-5 /hpf (0-5)
[2024-01-18 16:33] LABS: BACTERIA,URINE FEW /hpf (FEW); MUCUS,URINE FEW /hpf (FEW)
[2024-01-18 16:51] LABS: A/G RATIO 0.9 (1-2); ANION GAP 14.1 (5-15); BILIRUBIN TOTAL 0.5 mg/dL (0.2-1.0); BUN/CREATININE RATIO 18.2 (14-18); CALCIUM 9.1 mg/dL (8.5-10.1); CREATININE 1.1 mg/dL (0.7-1.3); EST CRCL DRUG DOSING (CG) 58.24 mL/min; POTASSIUM,K 4.1 mEq/L (3.5-5.1); PROTEIN TOTAL,TP 8.3 g/dl (6.4-8.2)
[2024-01-18 18:40] LABS: C. TRACHOMATIS BY PCR NOT DETECTED; N. GONORRHOEAE BY PCR NOT DETECTED
== END 2024-01-18 17:58 | disposition home or self-care (01) ==
LOC: JD.ED 15:08
DX: A60.01 Herpesviral infection of penis (principal); I10 Essential (primary) hypertension; E78.00 Pure hypercholesterolemia, unspecified; K21.9 Gastro-esophageal reflux disease without esophagitis; Z86.16 Personal history of COVID-19; Z79.899 Other long term (current) drug therapy
CPT/HCPCS: 36415; 80053; 81001; 85025; 86592; 87491; 87529; 87591; 99283

== ENCOUNTER 2024-02-06 08:48 | Emergency (ER) | payer MEDICARE, MEDICAID ==
[2024-02-06] MEDS: HYDROmorphone 0.5 MG/0.5 ML Syringe IVPUSH ONE (09:20)
[2024-02-06] MEDS: Ondansetron 4 MG/2 ML SDV IVPUSH ONE (09:20)
[2024-02-06] MEDS: Sodium Chloride 0.9% 10 ML Syringe FLUSH PRN (09:21)
[2024-02-06] MEDS: Sodium Chloride 0.9% 1,000 ML IV STA (09:21)
[2024-02-06 09:36] LABS: BASOPHILS PERCENT AUTO 0.2 % (0.0-1.0); EOSINOPHILS PERCENT AUTO 0.3 % (0.0-6.0); HEMATOCRIT 43.7 % (42.0-52.0); HEMOGLOBIN 14.6 gm/dl (14.0-18.0); IMMATURE GRAN ABSOLUTE AUTO 0.04 K/mm3 (0.00-0.05); IMMATURE GRAN PERCENT AUTO 0.4 % (0.0-0.4); LYMPHOCYTES ABSOLUTE AUTO 1.1 K/mm3 (1.0-4.8); LYMPHOCYTES PERCENT AUTO 10.2 % (24.0-44.0); MEAN CORPUSCULAR HEMOGLOBIN 29.4 pg (28.0-32.0); MEAN CORPUSCULAR HGB CONC 33.4 g/dl (32.0-36.0); MEAN CORPUSCULAR VOLUME 88.1 fl (83.0-99.0); MEAN PLATELET VOLUME 10.2 fl (9.4-12.4); MONOCYTES ABSOLUTE AUTO 0.7 K/mm3 (0.0-0.8); MONOCYTES PERCENT AUTO 6.6 % (0.0-8.0); NEUTROPHILS ABSOLUTE AUTO 8.7 K/mm3 (1.8-7.7); NEUTROPHILS PERCENT AUTO 82.3 % (41.0-71.0); PLATELET COUNT,PLT 223 K/mm3 (150-400); RED BLOOD CELL COUNT 4.96 M/mm3 (4.52-5.90); WHITE BLOOD CELL COUNT,WBC 10.53 K/mm3 (3.9-11.3)
[2024-02-06 10:00] LABS: ALBUMIN 3.7 g/dl (3.4-5.0); ANION GAP 12.9 (5-15); BILIRUBIN TOTAL 0.7 mg/dL (0.2-1.0); CALCIUM 8.6 mg/dL (8.5-10.1); CREATININE 1.1 mg/dL (0.7-1.3); EST CRCL DRUG DOSING (CG) 58.24 mL/min; MAGNESIUM 1.9 mg/dL (1.8-2.4); POTASSIUM,K 3.9 mEq/L (3.5-5.1); PROTEIN TOTAL,TP 7.6 g/dl (6.4-8.2)
[2024-02-06 11:46] LABS: APPEARANCE,URINE CLEAR (Clear); BILIRUBIN,URINE 1+ (Negative); COLOR,URINE YELLOW (Yellow); GLUCOSE,URINE NEGATIVE (Negative); KETONES,URINE 2+ (Negative); LEUKOCYTE ESTERASE,URINE NEGATIVE (Negative); NITRITE,URINE NEGATIVE (Negative); OCCULT BLOOD,URINE NEGATIVE (Negative); PH,URINE 5.5 (5.0-8.0); PROTEIN,URINE 2+ (Negative); UROBILINOGEN,URINE 0.2 (0.2-1.0)
[2024-02-06 12:12] LABS: BACTERIA,URINE MODERATE /hpf (FEW); EPITHELIAL CELLS,URINE 0-5 /hpf (0-5); MUCUS,URINE MANY /hpf (FEW); RBC,URINE 0-5 /hpf (0-5); WBC,URINE 0-5 /hpf (0-5)
[2024-02-06 13:24] VITALS: BP 125/69; PULSE 72
== END 2024-02-06 13:24 | disposition home or self-care (01) ==
LOC: JD.ED 08:48
DX: A08.4 Viral intestinal infection, unspecified (principal); E86.0 Dehydration; M79.606 Pain in leg, unspecified; I10 Essential (primary) hypertension; E78.00 Pure hypercholesterolemia, unspecified; K21.9 Gastro-esophageal reflux disease without esophagitis; Z86.16 Personal history of COVID-19; Z79.899 Other long term (current) drug therapy
CPT/HCPCS: 36415; 80053; 81001; 83690; 83735; 85025; 96361; 96374; 96375; 99284; J1171; J2405; J3490; J7030

== ENCOUNTER 2024-03-28 14:22 | Emergency (ER) | payer MEDICARE, MEDICAID ==
[2024-03-28] MEDS: Cyclobenzaprine 10 MG Tab PO ONE (14:54)
[2024-03-28] MEDS: Ketorolac 10 MG Tab PO ONE (14:54)
[2024-03-28 16:07] VITALS: BP 122/78; PULSE 75
== END 2024-03-28 15:50 | disposition home or self-care (01) ==
LOC: JD.ED 14:22
DX: M54.6 Pain in thoracic spine (principal); I10 Essential (primary) hypertension; K21.9 Gastro-esophageal reflux disease without esophagitis; E78.00 Pure hypercholesterolemia, unspecified; Z79.899 Other long term (current) drug therapy; Z86.16 Personal history of COVID-19
CPT/HCPCS: 99283; A9270

== ENCOUNTER 2024-06-30 16:13 | Emergency (ER) | payer MEDICARE, MEDICAID ==
[2024-06-30] MEDS: Amoxicillin 500 MG Cap PO ONE (17:38)
[2024-06-30] MEDS: Nystatin Crm 30 GM Tube TOP ONE (17:38)
[2024-06-30 17:44] VITALS: BP 128/83; PULSE 89
== END 2024-06-30 17:44 | disposition home or self-care (01) ==
LOC: JD.ED 16:13
DX: H65.02 Acute serous otitis media, left ear (principal); I10 Essential (primary) hypertension; B37.49 Other urogenital candidiasis; E78.00 Pure hypercholesterolemia, unspecified; K21.9 Gastro-esophageal reflux disease without esophagitis; Z79.899 Other long term (current) drug therapy; Z86.16 Personal history of COVID-19
CPT/HCPCS: 99282; A9270; 99283

== ENCOUNTER 2024-08-16 15:51 | Emergency (ER) | payer MEDICARE, MEDICAID ==
[2024-08-16] MEDS: Proparacaine 0.5% Ophth Soln 15 ML Bottle EYELF ONE (16:50)
[2024-08-16] MEDS: Fluorescein 1 MG Ophth Strip EYELF ONE (16:51)
[2024-08-16] MEDS: Erythromycin Base 0.5% Ophth Oint 1 GM Tube EYEBOTH ONE (17:20)
[2024-08-16] MEDS: Amoxicillin/Clavulanate K 875-125 MG Tab PO ONE (17:20)
[2024-08-16 18:22] VITALS: BP 129/88; PULSE 69
== END 2024-08-16 17:20 | disposition home or self-care (01) ==
LOC: JD.ED 15:51
DX: H66.93 Otitis media, unspecified, bilateral (principal); S05.02XA Injury of conjunctiva and corneal abrasion without foreign body, left eye, initial encounter; I10 Essential (primary) hypertension; E78.00 Pure hypercholesterolemia, unspecified; K21.9 Gastro-esophageal reflux disease without esophagitis; Z86.16 Personal history of COVID-19; Z79.899 Other long term (current) drug therapy; X50.9XXA Other and unspecified overexertion or strenuous movements or postures, initial encounter
CPT/HCPCS: 99283; A9270; J3490

== ENCOUNTER 2024-09-09 15:53 | Emergency (ER) | payer MEDICARE, MEDICAID ==
[2024-09-09 16:32] VITALS: BP 137/94; PULSE 87
[2024-09-09] MEDS: Ketorolac 30 MG/ML SDV IM ONE (17:02)
== END 2024-09-09 17:34 | disposition home or self-care (01) ==
LOC: JD.ED 15:53
DX: M26.623 Arthralgia of bilateral temporomandibular joint (principal); I10 Essential (primary) hypertension; E78.00 Pure hypercholesterolemia, unspecified; Z79.899 Other long term (current) drug therapy; Z86.16 Personal history of COVID-19
CPT/HCPCS: 96372; 99283; J1885

== ENCOUNTER 2024-09-26 18:35 | Emergency (ER) | payer MEDICARE, MEDICAID ==
[2024-09-26 18:49] VITALS: BP 128/81; PULSE 76
[2024-09-26] MEDS ORDERED: Sodium Chloride 0.9% 10 ML Syringe FLUSH PRN (19:16)
[2024-09-26 20:01] LABS: BASOPHILS ABSOLUTE AUTO 0.0 K/mm3 (0.0-0.2); BASOPHILS PERCENT AUTO 0.4 % (0.0-1.0); EOSINOPHILS ABSOLUTE AUTO 0.6 K/mm3 (0.0-0.4); EOSINOPHILS PERCENT AUTO 8.3 % (0.0-6.0); IMMATURE GRAN ABSOLUTE AUTO 0.02 K/mm3 (0.00-0.05); IMMATURE GRAN PERCENT AUTO 0.3 % (0.0-0.4); LYMPHOCYTES ABSOLUTE AUTO 2.5 K/mm3 (1.0-4.8); LYMPHOCYTES PERCENT AUTO 35.3 % (24.0-44.0); MEAN PLATELET VOLUME 10.4 fl (9.4-12.4); MONOCYTES ABSOLUTE AUTO 0.6 K/mm3 (0.0-0.8); MONOCYTES PERCENT AUTO 8.6 % (0.0-8.0); NEUTROPHILS ABSOLUTE AUTO 3.3 K/mm3 (1.8-7.7); NEUTROPHILS PERCENT AUTO 47.1 % (41.0-71.0); NRBC ABSOLUTE 0.00 (0.00-0.02); NRBC PERCENT 0.0 % (0.0-0.2); PLATELET COUNT,PLT 210 K/mm3 (150-400); RED BLOOD CELL COUNT 4.32 M/mm3 (4.52-5.90); WHITE BLOOD CELL COUNT,WBC 7.09 K/mm3 (3.9-11.3)
[2024-09-26 20:33] LABS: LACTIC ACID 1.0 mmol/L (0.4-2.0)
[2024-09-26 20:50] LABS: A/G RATIO 1.0 (1-2); ALANINE AMINOTRANSFERASE,ALT 22.0 U/L (16-63); ASPARTATE AMNIOTRANSFERASE,AST 16.0 U/L (15-37); BILIRUBIN TOTAL 0.3 mg/dL (0.2-1.0); BLOOD UREA NITROGEN,BUN 25.0 mg/dL (7-18); CARBON DIOXIDE,CO2 27.0 mEq/L (21-32); CHLORIDE,CL 105.0 mEq/L (98-107); CREATININE 1.4 mg/dL (0.7-1.3); EST CRCL DRUG DOSING (CG) 45.15 mL/min; ESTIMATED GFR 55.0 mL/min (>60); GLUCOSE RANDOM 119.0 mg/dL (70-99); POTASSIUM,K 3.8 mEq/L (3.5-5.1); PROTEIN TOTAL,TP 6.5 g/dl (6.4-8.2); SODIUM,NA 140.0 mEq/L (136-145); TROPONIN I HIGH SENSITIVITY 5.0 pg/mL (<=76)
[2024-09-26 21:43] LABS: APPEARANCE,URINE CLEAR (Clear); GLUCOSE,URINE NEGATIVE (Negative); OCCULT BLOOD,URINE NEGATIVE (Negative)
== END 2024-09-26 23:01 | disposition home or self-care (01) ==
LOC: JD.ED 18:35
DX: R53.81 Other malaise (principal); I10 Essential (primary) hypertension; K21.9 Gastro-esophageal reflux disease without esophagitis; Z86.16 Personal history of COVID-19; Z79.899 Other long term (current) drug therapy
CPT/HCPCS: 36415; 71045; 71045-26; 80053; 81003; 83605; 83735; 83880; 84484; 85025; 93005; 93010; 99283; 99285

== ENCOUNTER 2024-12-05 17:56 | Emergency (ER) | payer MEDICARE, MEDICAID ==
[2024-12-05] MEDS: Fluorescein 1 MG Ophth Strip EYEBOTH ONE (19:11)
[2024-12-05 19:14] VITALS: BP 131/75; PULSE 74
== END 2024-12-05 19:13 | disposition home or self-care (01) ==
LOC: JD.ED 17:56
DX: H57.89 Other specified disorders of eye and adnexa (principal); I10 Essential (primary) hypertension; K21.9 Gastro-esophageal reflux disease without esophagitis; Z79.899 Other long term (current) drug therapy; Z86.16 Personal history of COVID-19
CPT/HCPCS: 99283; J3490

== ENCOUNTER 2025-02-13 09:59 | Emergency (ER) | payer MEDICARE, MEDICAID ==
[2025-02-13 11:38] VITALS: BP 116/70; PULSE 75
== END 2025-02-13 11:40 | disposition home or self-care (01) ==
LOC: JD.ED 09:59
DX: S63.501A Unspecified sprain of right wrist, initial encounter (principal); S53.401A Unspecified sprain of right elbow, initial encounter; S13.9XXA Sprain of joints and ligaments of unspecified parts of neck, initial encounter; I10 Essential (primary) hypertension; E78.00 Pure hypercholesterolemia, unspecified; K21.9 Gastro-esophageal reflux disease without esophagitis; Z86.16 Personal history of COVID-19; W00.0XXA Fall on same level due to ice and snow, initial encounter
CPT/HCPCS: 70450; 70450-26; 72125; 72125-26; 73080-26-RT; 73080-RT; 73110-26-RT; 73110-RT; 73562-26-RT; 73562-RT; 99283; 99284